=== PATIENT | male | born 1950 | race Caucasian/White ===

== ENCOUNTER → 2016-12-19 | Outpatient (CLI) | payer BC ==
[~2016-12-19] MED LIST: ADVIN50050 INH; ALLO300T2 PO; AMB10 PO; ASPI81TA28 PO; FINA5TAB PO; LOSA25TA18 PO; LZL/125 PO; METO-551 PO; PANT40TA PO; RPF/8 PO; SIMV40TA2 PO; SNG10 PO; VARD0.05 PO
[2016-12-19 14:52] LABS: BASO % 0.5 %; BASO ABS # 0.03 K/uL (0-0.2); COMPLETE YES; EOS % 3.4 %; HEMATOCRIT 42.1 % (42-52); IG% 0.4 %; LYMPH % 34.2 %; LYMPH ABS # 1.91 K/uL (1.2-3.4); MEAN CELL VOLUME 97.9 fL (80-100); MEAN CORPUSCULAR HEMOGLOBIN 34.2 pg (25-34); MEAN CORPUSCULAR HGB CONC 34.9 g/dl (32-36); MONO % 9.1 %; NEUT % 52.4 %; PLATELET COUNT 210 K/uL (130-400); WHITE BLOOD COUNT 5.58 K/uL (4.8-10.8)
[2016-12-19 15:13] LABS: ESTIMATED AVERAGE GLUCOSE 140 mg/dl; HA1C FLAG Normal (Normal)
[2016-12-19 15:20] LABS: BLOOD UREA NITROGEN 20 mg/dl (7-18); BUN/CREATININE RATIO 21.7 (10-20); CARBON DIOXIDE 28 mmol/L (21-32); CHLORIDE 102 mmol/L (98-107); CREATININE 0.94 mg/dl (0.60-1.40); GLUCOSE 212 mg/dl (70-99); POTASSIUM 3.9 mmol/L (3.5-5.1); SODIUM 139 mmol/L (136-145)
[2016-12-19 15:32] LABS: CALCIUM 9.2 mg/dl (8.5-10.1)
== END | disposition home or self-care (01) ==
LOC: C.LABBC 10:38
PROVIDERS: ATTEND Physician Assistant
DX: I10 Essential (primary) hypertension (principal); E78.00 Pure hypercholesterolemia, unspecified

== ENCOUNTER → 2017-02-14 | Outpatient (CLI) | payer BC ==
--- NOTE | 2017-02-14 14:46 | DIAGNOSTIC IMAGING REPORT ---
CHEST 2 VIEWS ROUTINE CLINICAL HISTORY: R09.89 Chest [id number] cough COMPARISON STUDY: 08/13/2015 FINDINGS: Findings of a prior median sternotomy. Lungs are clear. Diaphragms smooth. Left shoulder arthroplasty. IMPRESSION: No acute process. Chronic and postoperative change. Electronically signed by: Schuyler Ceron M.D. 02/14/2017 2:45 PM Dictated Date/Time: 02/14/2017 2:43 PM
== END | disposition home or self-care (01) ==
LOC: C.RAD1850 14:32
PROVIDERS: ATTEND Physician Assistant
DX: R09.89 Other specified symptoms and signs involving the circulatory and respiratory systems (principal)

== ENCOUNTER → 2017-03-09 | Outpatient (CLI) | payer BC ==
[2017-03-09 12:16] LABS: BASO % 0.5 %; BASO ABS # 0.03 K/uL (0-0.2); COMPLETE YES; HEMATOCRIT 41.7 % (42-52); IG% 0.2 %; LYMPH ABS # 1.81 K/uL (1.2-3.4); MEAN CELL VOLUME 95.9 fL (80-100); MEAN CORPUSCULAR HEMOGLOBIN 33.8 pg (25-34); MEAN CORPUSCULAR HGB CONC 35.3 g/dl (32-36); MEAN PLATELET VOLUME 10.9 fL (7.4-10.4); NEUT % 52.3 %; PLATELET COUNT 229 K/uL (130-400); RED BLOOD COUNT 4.35 M/uL (4.7-6.1); WHITE BLOOD COUNT 5.65 K/uL (4.8-10.8)
[2017-03-09 12:31] LABS: BLOOD UREA NITROGEN 21 mg/dl (7-18); CREATININE 0.86 mg/dl (0.60-1.40); GLUCOSE 142 mg/dl (70-99)
[2017-03-09 12:32] LABS: ALT/SGPT 85 U/L (12-78); AST/SGOT 43 U/L (15-37); CHLORIDE 104 mmol/L (98-107); CHOLESTEROL 103 mg/dl (0-200); SODIUM 140 mmol/L (136-145)
[2017-03-09 12:41] LABS: CARBON DIOXIDE 28 mmol/L (21-32); HDL CHOLESTEROL 34 mg/dl; LDL CHOLESTEROL CALCULATED 46 mg/dl; TRIGLYCERIDES 113 mg/dl (0-150); VERY LOW DENSITY LIPOPROT CALC 23 mg/dl
[2017-03-09 12:47] LABS: ESTIMATED AVERAGE GLUCOSE 146 mg/dl; HA1C FLAG Normal (Normal)
== END | disposition home or self-care (01) ==
LOC: C.LAB1850 10:01
PROVIDERS: ATTEND Internal Medicine Cardiovascular Disease
DX: I25.10 Atherosclerotic heart disease of native coronary artery without angina pectoris (principal); I10 Essential (primary) hypertension; E11.9 Type 2 diabetes mellitus without complications

== ENCOUNTER → 2017-09-16 | Outpatient (CLI) | payer BC ==
[2017-09-16 13:24] LABS: HEMOGLOBIN A1C 6.7 % (4.5-5.6)
== END | disposition home or self-care (01) ==
LOC: C.LAB1850 11:54
PROVIDERS: ATTEND Internal Medicine Cardiovascular Disease
DX: E11.9 Type 2 diabetes mellitus without complications (principal); E78.00 Pure hypercholesterolemia, unspecified

== ENCOUNTER → 2017-12-13 | Outpatient (CLI) | payer BC | END | disposition home or self-care (01) | LOC: C.LABSPEC 11:19 | PROVIDERS: ATTEND Physician Assistant | DX: R19.7 Diarrhea, unspecified (principal) ==

== ENCOUNTER → 2017-12-21 | Outpatient (CLI) | payer BC ==
--- NOTE | 2017-12-21 14:00 | DIAGNOSTIC IMAGING REPORT ---
MRI LUMBAR SPINE W/O CONTRAST CLINICAL HISTORY: Spinal stenosis with neurogenic claudication TECHNIQUE: Sagittal and axial T1, T2 and STIR images were obtained. COMPARISON STUDY: 08/11/2015 OBSERVATIONS: The vertebral bodies and posterior elements appear intact. There is no abnormal bony signal present to suggest a marrow replacement process. L1-2: There is a circumferential disc bulge present with mild to moderate spinal stenosis. There is no significant foraminal narrowing L2-3: There is a circumferential disc bulge with mild to moderate spinal stenosis. There is mild right-sided foraminal narrowing L3-4: There is a circumferential disc bulge. There is no significant spinal stenosis. There is facet joint arthropathy. There is moderate right-sided foraminal narrowing L4-5: There is a circumferential disc bulge present. There is no significant spinal stenosis. There is mild right-sided foraminal narrowing L5-S1: There is a minor grade 1 spondylolisthesis of L5 on S1. There is a mild circumferential disc bulge. There is no spinal stenosis. There is severe facet joint arthropathy. There is moderate left-sided foraminal narrowing and mild right-sided foraminal narrowing. The conus medullaris and cauda equina appear normal. IMPRESSION: 1. Moderately advanced multilevel degenerative change 2. Mild to moderate spinal stenosis at the L1-2, and L2-3 levels 3. Mild right-sided foraminal narrowing at the L2-3 level, L4-5 levels, and L5-S1 levels, and moderate right-sided foraminal narrowing at the L3-4 level. Moderate left-sided foraminal narrowing at the L5-S1 level. 4. The findings remain similar to the prior August 2015 study Electronically signed by: Humberto Arroyo M.D. 12/21/2017 1:59 PM Dictated Date/Time: 12/21/2017 1:53 PM
== END | disposition home or self-care (01) ==
LOC: C.MRIBC 12:52
PROVIDERS: ATTEND Neurological Surgery
DX: M48.062 Spinal stenosis, lumbar region with neurogenic claudication (principal)

== ENCOUNTER → 2017-12-26 | Outpatient (CLI) | payer BC ==
--- NOTE | 2017-12-26 14:17 | DIAGNOSTIC IMAGING REPORT ---
L WRIST MIN 3 VIEWS ROUTINE CLINICAL HISTORY: LEFT WRIST PAIN pain COMPARISON: None. DISCUSSION: The bones and joint spaces appear intact. There is no evidence of fracture, dislocation or bony disease. There is no evidence for soft tissue swelling. IMPRESSION: Negative study. The above report was generated using voice recognition software. It may contain grammatical, syntax or spelling errors. Electronically signed by: Schuyler Ceron M.D. 12/26/2017 2:16 PM Dictated Date/Time: 12/26/2017 2:14 PM
--- NOTE | 2017-12-26 14:18 | DIAGNOSTIC IMAGING REPORT ---
LEFT KNEE RADIOGRAPHS WITH COMPARISON STANDING AP RADIOGRAPH OF THE RIGHT KNEE CLINICAL HISTORY: Left knee pain. COMPARISON: None FINDINGS: Comparison standing AP radiograph of the right knee demonstrates mild medial compartment joint space narrowing. There is extensive vascular calcification. Alignment of the left knee is anatomic. No fracture or suspicious lesion. There is mild medial compartment joint space narrowing of the left knee. There is mild tricompartmental osteophytosis of the left knee. There is no fracture or joint effusion. IMPRESSION: 1. Mild to moderate tricompartmental osteoarthritis of the left knee. 2. No acute fracture or joint effusion. 3. Extensive vascular calcification. Electronically signed by: Donny Mraley M.D. 12/26/2017 2:17 PM Dictated Date/Time: 12/26/2017 2:16 PM
== END ==
LOC: C.RDSM 15:47
PROVIDERS: ATTEND Physician Assistant
DX: R52 Pain, unspecified (principal)

== ENCOUNTER → 2017-12-29 | Outpatient (CLI) | payer BC ==
--- NOTE | 2017-12-29 10:43 | DIAGNOSTIC IMAGING REPORT ---
CT OF THE ABDOMEN AND PELVIS WITH CONTRAST CLINICAL HISTORY: Abdominal pain and diarrhea. COMPARISON STUDY: CT of the abdomen January 21, 2016. TECHNIQUE: Following IV administration of 93 mL of Optiray-320, axial images of the abdomen and pelvis were obtained from the lung bases to the proximal femurs. Images were reviewed in the axial, sagittal, and coronal planes. IV contrast was administered without complication. A dose lowering technique was utilized adhering to the principles of ALARA. Oral contrast was administered. CT DOSE: 867.37 mGy.cm FINDINGS: Imaged portions of the lower chest demonstrate extensive coronary artery calcification, median sternotomy wires and mild dilatation of visualized portions of the ascending aorta which measures up to 4.2 cm. No pneumatosis, free air or portal venous gas is present. The liver, spleen, adrenal glands and kidneys are unremarkable. There is no biliary or pancreatic ductal dilatation. There is possible fatty infiltration of the liver. Extensive sigmoid diverticulosis is noted without definite evidence for acute diverticulitis. Mild wall thickening of the distal descending and sigmoid colon is noted without pericolonic infiltration. The appendix is not visualized and likely surgically absent. Note is made of a 4.5 x 1.4 cm tubular fat containing focus anterior to the distal ascending colon. There is no free air or abscess. There is no lymphadenopathy. No suspicious osseous lesions are present. There is moderate plaque of the abdominal aorta. IMPRESSION: 1. Extensive sigmoid diverticulosis with mild wall thickening of the distal descending colon and sigmoid colon. This is likely due to underdistention or circular muscular hypertrophy. However, a mild nonspecific colitis could appear similar. 2. 4.5 x 1.4 cm tubular fat-containing focus anterior to the distal ascending colon which suggests epiploic appendagitis or a small omental infarct which is likely subacute. This represents a self-limiting process. 3. Extensive coronary artery calcification. 4. Mild dilatation of the visualized portions of the ascending aorta, measuring up to 4.2 cm. Electronically signed by: Donny Marley M.D. 12/29/2017 10:42 AM Dictated Date/Time: 12/29/2017 10:23 AM
== END | disposition home or self-care (01) ==
LOC: C.CTS 10:05
PROVIDERS: ATTEND Physician Assistant
DX: R19.7 Diarrhea, unspecified (principal); R10.9 Unspecified abdominal pain

== ENCOUNTER → 2018-01-10 | Outpatient (CLI) | payer BC | END | disposition home or self-care (01) | LOC: C.LABSPEC 14:35 | PROVIDERS: ATTEND Physician Assistant | DX: R19.7 Diarrhea, unspecified (principal) ==

== ENCOUNTER → 2018-01-12 | Outpatient (CLI) | payer BC ==
--- NOTE | 2018-01-12 12:22 | DIAGNOSTIC IMAGING REPORT ---
GI W/AIR SMALL BOWEL ROUTINE CLINICAL HISTORY: R19.7nausea. Pain. COMPARISON STUDY: CT 12/29/2017 FLUOROSCOPY TIME: 1.2 minutes. FINDINGS: Patient initiates swallowing function well. The esophagus is normal in course and caliber. Gastroesophageal junction is normal. Size and configuration the stomach are normal. Duodenal bulb fills well and is negative for ulceration. Duodenal sweep is unremarkable. Mucosal pattern and transit time throughout small bowel are unremarkable. Cecum is somewhat mobile and currently is on the right upper quadrant. Spot films the terminal ileum are unremarkable. IMPRESSION: Normal study The above report was generated using voice recognition software. It may contain grammatical, syntax or spelling errors. Electronically signed by: Schuyler Ceron M.D. 01/12/2018 12:18 PM Dictated Date/Time: 01/12/2018 12:17 PM
== END | disposition home or self-care (01) ==
LOC: C.RAD 08:43
PROVIDERS: ATTEND Physician Assistant
DX: R19.7 Diarrhea, unspecified (principal)

== ENCOUNTER 2021-05-17 05:18 | Observation (INO) ==
--- NOTE | 2021-04-09 13:57 | PAT Medication Instructions ---
Medication Instructions Date of Service April 09, 2021 Home Medications Medication Instructions Recorded allopurinol 300 mg tablet 300 mg PO QAM #90 tab 09/12/19 sucralfate 100 mg/mL oral See Rx Instructions PO QID PRN 09/12/19 suspension (Carafate) #420 ml solifenacin 10 mg tablet (Vesicare) 10 mg PO DAILY #90 tab 10/23/20 montelukast 10 mg tablet 10 mg PO PM #90 tab 11/26/20 alprazolam 0.25 mg tablet 0.25 mg PO HS #90 tab 01/07/21 losartan 100 1 tab PO QAM #90 tab 01/13/21 mg-hydrochlorothiazide 25 mg tablet oxycodone 5 mg tablet 5 mg PO BID PRN #20 tab 03/29/21 azelastine 137 mcg (0.1 %) nasal spray aerosol 2 spray INTRANASAL DAILY PRN melatonin 10 mg tablet 10 mg PO HS PRN multivitamin 1 tab PO QAM omega 1-pgr-rpt-fish oil 1,000 mg (120 mg-180 mg) capsule (Fish Oil) 1 cap PO QAM allopurinol 300 mg tablet 300 mg PO QAM sucralfate 100 mg/mL oral suspension (Carafate) See Rx Instructions PO QID PRN solifenacin 10 mg tablet (Vesicare) 10 mg PO DAILY montelukast 10 mg tablet 10 mg PO PM alprazolam 0.25 mg tablet 0.25 mg PO HS losartan 100 mg-hydrochlorothiazide 25 mg tablet 1 tab PO QAM oxycodone 5 mg tablet 5 mg PO BID PRN diltiazem HCl 240 mg capsule,extended release 24 hr 240 mg PO QAM mirabegron 25 mg tablet,extended release 24 hr (Myrbetriq) 25 mg PO QPM pantoprazole 40 mg tablet,delayed release 40 mg PO BID simvastatin 40 mg tablet 40 mg PO HS STOP taking 2 weeks before surgery (or as soon as possible if surgery is within 2 weeks) omega 9-ucj-zgc-fish oil 1,000 mg (120 mg-180 mg) capsule (Fish Oil) 1 cap PO QAM DO NOT take the morning of surgery multivitamin 1 tab PO QAM sucralfate 100 mg/mL oral suspension (Carafate) See Rx Instructions PO QID PRN solifenacin 10 mg tablet (Vesicare) 10 mg PO DAILY losartan 100 mg-hydrochlorothiazide 25 mg tablet 1 tab PO QAM Take morning of surgery With a small sip of water, OTHERWISE NOTHING TO EAT OR DRINK AFTER MIDNIGHT: azelastine 137 mcg (0.1 %) nasal spray aerosol 2 spray INTRANASAL DAILY PRN (if needed) allopurinol 300 mg tablet 300 mg PO QAM oxycodone 5 mg tablet 5 mg PO BID PRN (okay to take up to 4 hours prior to surgery if needed) diltiazem HCl 240 mg capsule,extended release 24 hr 240 mg PO QAM pantoprazole 40 mg tablet,delayed release 40 mg PO BID Take evening before surgery azelastine 137 mcg (0.1 %) nasal spray aerosol 2 spray INTRANASAL DAILY PRN (if needed) melatonin 10 mg tablet 10 mg PO HS PRN (if needed) sucralfate 100 mg/mL oral suspension (Carafate) See Rx Instructions PO QID PRN (if needed) montelukast 10 mg tablet 10 mg PO PM alprazolam 0.25 mg tablet 0.25 mg PO HS oxycodone 5 mg tablet 5 mg PO BID PRN (if needed) mirabegron 25 mg tablet,extended release 24 hr (Myrbetriq) 25 mg PO QPM pantoprazole 40 mg tablet,delayed release 40 mg PO BID simvastatin 40 mg tablet 40 mg PO HS Other Notes If you have any questions please call us at [phone] or [phone] or [phone] or [phone]
--- NOTE | 2021-04-12 10:57 | Anesthesiology Consultation ---
Date of Service April 12, 2021 Assessment & Plan (1) Encounter for pre-operative examination: - COVID screening: Per assessment on 04/12: Travel screen negative, no known COVID-19 positive contacts or current COVID-19 related symptoms. Patient vaccinated. Surgeon arranging preop COVID testing. Awaiting results. - Cardiology office visit (02/02/21): "The patient is stable from cardiovascular standpoint. He demonstrates excellent control of his blood pressure and LDL cholesterol. He was commended on his exercise program. His ascending thoracic aortic dilatation remains stable. This will be reassessed in approximately 1 year. His coronary artery disease remains quiescent his current medical regimen." F/U 6 months recommended. - Check BSG AM DOS - Lumbar DDD: Reviewed SAB vs. GA. No lumbar hardware or abnormalities noted on PAT exam. - Post-op course: Per patient, plan per surgeon is to at least stay overnight post-operatively. Chart Review Chart Review: Acceptable Risk for Surgery and Patient seen in Pre Admission Testing Teaching & Discussion Pre-Anesthesia Teaching/Discussion Notes: Instructed NPO after midnight before surgery,except medications with 15 cc of water. Medication instructions provided according to the PAT guidelines. History Surgery Operation Date: 05/04/21 10:10 Proposed Procedures p Left Anterior Total Hip Replacement - Mathieu Robb DO Height/Weight Height: 6 ft 1.5 in Weight: 98.7 kg Allergies Allergy/AdvReac Type Severity Reaction Status Date / Time MARCELLO Inhibitors AdvReac Mild Cough Verified 04/09/21 15:04 Medications Home Medications Medication Instructions Recorded Confirmed Last Taken azelastine 137 mcg (0.1 %) nasal 2 spray INTRANASAL DAILY PRN 10/08/18 04/12/21 Unknown spray aerosol melatonin 10 mg tablet 10 mg PO HS PRN 10/08/18 04/12/21 10/28/18 22:00 multivitamin 1 tab PO QAM 10/08/18 04/12/21 10/28/18 08:00 omega 3-gyd-qfp-fish oil 1,000 mg 1 cap PO QAM 10/08/18 04/12/21 10/28/18 08:00 (120 mg-180 mg) capsule (Fish Oil) allopurinol 300 mg tablet 300 mg PO QAM #90 tab 09/12/19 04/12/21 Unknown sucralfate 100 mg/mL oral See Rx Instructions PO QID PRN 09/12/19 04/12/21 Unknown suspension (Carafate) #420 ml solifenacin 10 mg tablet (Vesicare) 10 mg PO DAILY #90 tab 10/23/20 04/12/21 Unknown montelukast 10 mg tablet 10 mg PO PM #90 tab 11/26/20 04/12/21 Unknown alprazolam 0.25 mg tablet 0.25 mg PO HS #90 tab 01/07/21 04/12/21 Unknown losartan 100 1 tab PO QAM #90 tab 01/13/21 04/12/21 Unknown mg-hydrochlorothiazide 25 mg tablet oxycodone 5 mg tablet 5 mg PO BID PRN #20 tab 03/29/21 04/12/21 Unknown diltiazem HCl 240 mg 240 mg PO QAM 04/09/21 04/12/21 Unknown capsule,extended release 24 hr mirabegron 25 mg tablet,extended 25 mg PO QPM 04/09/21 04/12/21 Unknown release 24 hr (Myrbetriq) pantoprazole 40 mg tablet,delayed 40 mg PO BID 04/09/21 04/12/21 Unknown release simvastatin 40 mg tablet 40 mg PO HS 04/09/21 04/12/21 Unknown Past Medical History Medical History Asthma Atrial fibrillation intermittent Barretts esophagus BPH (benign prostatic hyperplasia) CAD (coronary artery disease) s/p CABG x4 (2013) Chronic back pain Conductive hearing loss Degenerative disc disease GERD (gastroesophageal reflux disease) Gout History of gastric ulcer Hyperlipidemia Hypertension Insomnia Lumbar disc disorder with myelopathy Osteoarthritis Sleep apnea CPAP (non-compliant) Spinal stenosis Thoracic ascending aortic aneurysm Mildly dilated ascending aorta (4.1cm) per 12/2020 echo, "stable" per cardiology Type 2 diabetes mellitus Borderline, diet controlled Hgba1c 5.8% on 12/21/20 Exercise / Class Metabolic Activity II 4-5 Yardwork/Stairs/Walk up hill Past Family History Family History Father Family history of diabetes mellitus Myocardial infarction Stroke Brother Family history of esophageal cancer Stroke Son Coronary heart disease Other Diabetes Heart disease Hypertension No family history of adverse response to anesthesia Past Surgical History Surgical History History of appendectomy History of cardiac cath 2013 ([facility]) > no stents History of carpal tunnel surgery of right wrist History of colonoscopy History of esophagogastroduodenoscopy (EGD) EGD (10/29/18): MAC at [facility] History of lumbar discectomy x2 L3-L4 History of prior ablation treatment Radiofrequency ablation of esophagus (done at [facility]) for precancerous Allen's Esophagus History of tonsillectomy History of total replacement of left shoulder joint History of wisdom tooth extraction S/P CABG x 4 2013 ([facility]) Status post medial meniscus repair Left knee Status post right foot surgery Past Anesthesia History No Hx of Anesthesia Complications and No Family Hx of Anesthesia Complications History of PONV No Hx of PONV and No Hx of Motion Sickness Social History Smoking Status: Never smoker Do You Dip or Chew Tobacco: No Hx Alcohol Use: Yes Alcohol type: wine alcohol intake frequency: 3 or more drinks per day (At most 3 glasses/wine per day ) Hx Substance Use: No substance use type: does not use Review of Systems Patient denies chest pain, shortness of breath, dyspnea on exertion, fever, chills, cough, wheezing, palpitations. Physical Exam Vital Signs VITALS BP 124/81 P 67 TEMP WNL SP02 96%RA RESP 16 PHYSICAL Decreased cervical extension range of motion (2/2 cervicalgia). Full TMJ range of motion. TMD 3 finger breaths Mallampati Score 3 Dentition: intact, + crown Lungs: clear throughout to auscultation Cardiac: regular rate and rhythm, no murmurs noted Spine: normal Carotid arteries: negative bruit Extremities: no edema Lab Results Anesthesia Preop Results Results Anesthesia Widget: WBC 5.66 K/uL (4.8-10.8) 04/12/21 Hgb 13.8 g/dL (14.0-18.0) L 04/12/21 Hct 38.5 % (42-52) L 04/12/21 Plt 204 K/uL (130-400) 04/12/21 Na 131 mmol/L (136-145) L 04/12/21 K 3.8 mmol/L (3.5-5.1) 04/12/21 Cl 102 mmol/L (98-107) 04/12/21 CO2 27 mmol/L (21-32) 04/12/21 BUN 20 mg/dl (7-18) H 04/12/21 Creat 0.72 mg/dl (0.6-1.4) 04/12/21 Glucose Level 136 mg/dl (70-99) H 04/12/21 PT 10.6 Seconds (9.0-12.0) 04/12/21 PTT 24.5 Seconds (21.0-31.0) 04/12/21 INR 1.0 (0.9-1.1) 04/12/21 Blood Type O Positive 04/12/21 Antibody Screen NEGATIVE 04/12/21 Lab Comments: Known hx of mild, chronic hyponatremia. Testing Laboratory Results 12/21/20 HGBA1C 5.8% Electrocardiogram Date: 04/12/21 SR with first degree AVB at 64bpm. LBBB (chronic, known hx LBBB) Chest X-Ray Date: 04/12/21 FINDINGS: PA and lateral chest radiographs are compared to study dated 06/12/2018 and correlated with chest CT dated 09/28/2018. The patient is status post midline sternotomy. The heart is enlarged noting atherosclerotic calcification of the thoracic aorta. The pulmonary vasculature is noncongested. The lungs and pleural spaces are clear. There is no pneumothorax. The skeletal structures are osteopenic. The bony thorax appears intact. A left shoulder arthroplasty is in place. IMPRESSION: Cardiomegaly with no active disease in the chest. Echocardiogram Date: 12/28/20 EF 45 to 50%. No regional wall motion abnormality. Mild concentric LVH. Mild MR. Mildly dilated ascending aorta (4.1 cm in diameter). Grade 1 diastolic dysfunction. Mild LAD. Mild MR. Compared to study of 01/07/2020, no significant change.
--- NOTE | 2021-05-14 06:07 | History & Physical Report ---
Date of Service May 14, 2021 Assessment & Plan (1) Osteoarthritis of left hip: We will proceed with a left anterior total of arthroplasty. Postoperatively he will be started on aspirin for DVT prophylaxis and kept overnight in the hospital for postoperative medical management. He plans to use energy physical therapy upon discharge. History of Present Illness Chief Complaint: Osteoarthritis of the left hip. Primary Care Provider: Donal Willis MD Jose Rafael is a pleasant 70-year-old male whose been dealing with chronic worsening left hip and groin pain. X-rays and clinical examination have been diagnostic for advanced osteoarthritis of the left hip. After failing extensive conservative treatment, he has elected to proceed with a left total hip arthroplasty.. Allergies Allergy/AdvReac Type Severity Reaction Status Date / Time MARCELLO Inhibitors AdvReac Mild Cough Verified 04/28/21 13:24 Home Medications Medication Instructions Recorded Confirmed Type azelastine 137 mcg (0.1 %) nasal 2 spray INTRANASAL DAILY PRN 10/08/18 04/28/21 History spray aerosol melatonin 10 mg tablet 10 mg PO HS PRN 10/08/18 04/28/21 History multivitamin 1 tab PO QAM 10/08/18 04/28/21 History omega 4-ikg-wuk-fish oil 1,000 mg 1 cap PO QAM 10/08/18 04/28/21 History (120 mg-180 mg) capsule (Fish Oil) allopurinol 300 mg tablet 300 mg PO QAM #90 tab 09/12/19 04/28/21 Rx sucralfate 100 mg/mL oral See Rx Instructions PO QID PRN 09/12/19 04/28/21 Rx suspension (Carafate) #420 ml montelukast 10 mg tablet 10 mg PO PM #90 tab 11/26/20 04/28/21 Rx alprazolam 0.25 mg tablet 0.25 mg PO HS #90 tab 01/07/21 04/28/21 Rx losartan 100 1 tab PO QAM #90 tab 01/13/21 04/28/21 Rx mg-hydrochlorothiazide 25 mg tablet oxycodone 5 mg tablet 5 mg PO BID PRN #20 tab 03/29/21 04/28/21 Rx diltiazem HCl 240 mg 240 mg PO QAM 04/09/21 04/28/21 History capsule,extended release 24 hr mirabegron 25 mg tablet,extended 25 mg PO QPM 04/09/21 04/28/21 History release 24 hr (Myrbetriq) pantoprazole 40 mg tablet,delayed 40 mg PO BID 04/09/21 04/28/21 History release simvastatin 40 mg tablet 40 mg PO HS 04/09/21 04/28/21 History solifenacin 10 mg tablet (Vesicare) 10 mg PO DAILY 30 Days #30 tab 04/15/21 04/28/21 Rx hydrocortisone-acetic acid 1 %-2 % 5 drp OTIC (EAR) BID PRN #10 ml 04/28/21 04/28/21 Rx ear drops Past Med/Surg History Medical History Asthma Atrial fibrillation intermittent Barretts esophagus BPH (benign prostatic hyperplasia) CAD (coronary artery disease) s/p CABG x4 (2013) Chronic back pain Conductive hearing loss Degenerative disc disease GERD (gastroesophageal reflux disease) Gout History of gastric ulcer Hyperlipidemia Hypertension Insomnia Lumbar disc disorder with myelopathy Osteoarthritis Sleep apnea CPAP (non-compliant) Spinal stenosis Thoracic ascending aortic aneurysm Mildly dilated ascending aorta (4.1cm) per 12/2020 echo, "stable" per cardiology Type 2 diabetes mellitus Borderline, diet controlled Hgba1c 5.8% on 12/21/20 Surgical History History of appendectomy History of cardiac cath 2013 ([facility]) > no stents History of carpal tunnel surgery of right wrist History of colonoscopy History of esophagogastroduodenoscopy (EGD) EGD (10/29/18): MAC at [facility] History of lumbar discectomy x2 L3-L4 History of prior ablation treatment Radiofrequency ablation of esophagus (done at [facility]) for precancerous Allen's Esophagus History of tonsillectomy History of total replacement of left shoulder joint History of wisdom tooth extraction S/P CABG x 4 2013 ([facility]) Status post medial meniscus repair Left knee Status post right foot surgery Family History Father Family history of diabetes mellitus Myocardial infarction Stroke Brother Family history of esophageal cancer Stroke Son Coronary heart disease Other Diabetes Heart disease Hypertension No family history of adverse response to anesthesia Social History Smoking Status: Never smoker Second Hand Exposure: No; Hx Alcohol Use: Yes Alcohol type: wine Hx Substance Use: No Preferred Language: Beninese Communication Ability: Effective Director Market Research Required: No Beliefs That Will Affect Care: None Current Living Situation: Spouse Feels Safe at Home: Yes Assistive Devices: CPAP and Glasses Review of Systems All systems reviewed & are unremarkable except as noted in HPI & below. Physical Exam On physical examination of the left hip, he walks with a slightly antalgic gait. His limited range of motion of his hip with forced internal and external rotation. He has pain in his groin.. Constitutional WD/WN, vitals as above Eyes PERRL, conjunctivae normal, anicteric sclerae ENMT external ear and nose normal, oropharynx normal Neck trachea midline, no thyromegaly Respiratory normal respiratory effort Cardiovascular RRR, no murmur, no edema Gastrointestinal (Abdomen) normal bowel sounds, soft, nontender, no hepatosplenomegaly Psychiatric A+Ox3, euthymic affect Results & Data Results & Data Laboratory Results . Diagnostic Findings Pelvis do show advanced osteoarthritis with joint space narrowing, osteophyte formation, and [id number] articulation. PG Care Time/CCT Total # of Minutes Spent Total Time Spent with Patient: Total time spent is greater than 50% in coordination of care (as documented) at patient's floor/unit and/or counseling patient: Coding Level of Care Code None Diagnoses Osteoarthritis of left hip M16.12
[~2021-05-17 05:18] MED LIST changes: +ACETAMINOPHEN 500 MG TAB PO SCH; -ADVIN50050 INH; -ALLO300T2 PO; -AMB10 PO; -ASPI81TA28 PO; +FAMOTIDINE 20 MG TAB PO SCH; -FINA5TAB PO; +GABAPENTIN 600 MG DOSE PO SCH; -LOSA25TA18 PO; +LR 500ML BOLUS, THEN 15ML/HR IV SCH; +LR 60ML/HR IV SCH; -LZL/125 PO; -METO-551 PO; -PANT40TA PO; +ROPIVACAINE 0.5% HCL/PF 150 MG, BUPIVACAINE 0.75% MPF 20 ML, EPINEPHrine 30MG/30ML (OR ... INSTIL SCH; -RPF/8 PO; -SIMV40TA2 PO; -SNG10 PO; +TRANEXAMIC ACID 1,000 MG **IV Intra-op IV SCH; +TRANEXAMIC ACID 1,000 MG **IV Pre-op IV SCH; -VARD0.05 PO; +ceFAZolin 2000MG 2,000 MG/15 ML SYR IV SCH; +dexAMETHasone 4 MG TAB PO SCH
[2021-05-17] MEDS ORDERED: ceFAZolin 2000MG 2,000 MG/15 ML SYR IV SCH (06:00)
[2021-05-17] MEDS ORDERED: TRANEXAMIC ACID 1,000 MG **IV Intra-op IV SCH (06:00)
[2021-05-17] MEDS ORDERED: LR 500ML BOLUS, THEN 15ML/HR IV SCH (06:00)
[2021-05-17] MEDS ORDERED: GABAPENTIN 600 MG DOSE PO SCH (06:00)
[2021-05-17] MEDS ORDERED: ROPIVACAINE 0.5% HCL/PF 150 MG, BUPIVACAINE 0.75% MPF 20 ML, EPINEPHrine 30MG/30ML (OR ... INSTIL SCH (06:00)
[2021-05-17] MEDS ORDERED: LR 60ML/HR IV SCH (06:00)
[2021-05-17] MEDS ORDERED: dexAMETHasone 4 MG TAB PO SCH (06:00)
[2021-05-17] MEDS ORDERED: ACETAMINOPHEN 500 MG TAB PO SCH (06:00)
[2021-05-17] MEDS ORDERED: TRANEXAMIC ACID 1,000 MG **IV Pre-op IV SCH (06:00)
[2021-05-17] MEDS ORDERED: FAMOTIDINE 20 MG TAB PO SCH (06:00)
[2021-05-17] MEDS ORDERED: fentaNYL citrate 100 MCG/2 ML VIAL IV PRN (06:20)
[2021-05-17] MEDS ORDERED: ePHEDrine sulfate 50 MG/ML AMP IV PRN (06:20)
[2021-05-17] MEDS ORDERED: ONDANSETRON INJ 2 MG/ML 2 ML VIAL IV PRN ×2 (06:20→10:32)
[2021-05-17] MEDS ORDERED: ATROPINE SULFATE 0.1 MG/ML 10ML SYR IV PRN (06:20)
[2021-05-17] MEDS ORDERED: BUPIVACAINE 0.5 % 5 MG/1 ML PF 10ML VIAL ONE (06:35)
[2021-05-17] MEDS ORDERED: ORTHO JOINT ANESTHETIC ONE (06:37)
--- NOTE | 2021-05-17 06:37 | History & Physical Bridge Note ---
Date of Service May 17, 2021 History & Physical Bridge Note I have examined the patient, reviewed the History & Physical and in the interval since the performance of the History & Physical I have noted the following changes of clinical significance: no changes noted
[2021-05-17] MEDS ORDERED: fentaNYL citrate 100 MCG/2 ML VIAL ONE (06:41)
[2021-05-17] MEDS ORDERED: PROPOFOL IV EMULSION 10 MG/ML 20 ML VIAL IV ONE ×3 (06:41→07:53)
[2021-05-17] MEDS ORDERED: LIDOCAINE 2% 2 ML VIAL/AMP(20MG/ML) INFIL ONE (07:53)
[2021-05-17] MEDS ORDERED: ONDANSETRON INJ 2 MG/ML 2 ML VIAL ONE (07:53)
--- NOTE | 2021-05-17 08:17 | Operative Report ---
PG Post Operative Report Pre & Post Diagnosis Operation Date: 05/17/21 07:00 Pre-Op Diagnosis: Left Hip Osteoarthritis Post-Op Diagnosis: Left Hip Osteoarthritis I identified the patient and participated in the time-out.: Yes Procedure Operation Date: 05/17/21 07:00 Actual Procedures p Left Anterior Total Hip Replacement(Left) - Mathieu Robb DO Surgeon Mathieu Robb DO Mail Weigher Mathieu Boston PAC Estimated Blood Loss 250 Findings Consistent with Post-Op Diagnosis Specimens Left femoral head Complications none Disposition Disposition: Recovery Room Indications Jose Rafael is a pleasant 70-year-old male who is been dealing with chronic worsening left hip and groin pain. X-rays and clinical examination are diagnostic for advanced osteoarthritis of the left hip. After failing conservative treatment, he elected proceed with a left anterior total hip arthroplasty. Description of Procedure Implants used I used a ZimmerBiomet total hip arthroplasty system with a size 4 standard Avenir Complete stem, a 56 mm G7 cup with a 25mm screw, an E1 polyethylene liner, a 40 mm ceramic head with a 0 neck. Jose Rafael arrived at the hospital for the above procedure. He was seen in the preoperative holding area and the operative extremity was identified and signed. He was given a spinal anesthetic, a preoperative antibiotic, and TXA. He was then taken back to the operating room and laid on the table in the supine position. He was given basic sedation. The operative leg was secured to a Puristst leg positioner. The hip was then prepped and draped in sterile fashion. A timeout was done and the patient and the operative extremity was properly identified. An anterior approach was used. Dissection was taken down through the fascia and the tensor muscle belly was retracted laterally and the rectus was retracted medially. The circumflex vessels were identified and ligated. The capsule was then incised and tagged for later repair. The femoral neck was then cut and the femoral head was removed. The acetabulum was exposed. Time was spent doing a complete circumferential labral release. Sequential reaming of the acetabulum up to a size 55 reamer was done. Final reamings were done under fluoroscopy to ensure appropriate version. A Biomet 56 mm G7 cup was then impacted into place. A single 25 mm screw was placed. The E1 polyethylene liner was then snapped into place. Surrounding soft tissues were then injected with 100 cc of an orthopedic pain control cocktail. The proximal femur was then exposed. Sequential broaching up to a size 4 broach was done. Off that broach a size 40 head with a 0 neck was trialed. The hip was reduced and fluoroscopic images showed anatomic alignment of the implants in acceptable length. The broach was removed. The final size 4 standard offset Avenir Complete stem was then impacted into place. A ceramic 40 mm head with a 0 neck was then impacted onto the stem and the hip was reduced. Final fluoroscopic images showed anatomic alignment of the hip. The capsule was then closed with #1 Vicryl suture. A dilute betadyne lavage was then done for 3 minutes. The joint was then irrigated with normal saline solution. The fascia was closed with #1 PDS suture. Skin was closed with 2-0 Vicryl, francisco, and a Silverlon dressing. He was then transferred to a hospital bed and taken to the post anesthesia care unit in stable condition. He tolerated the procedure well. Mathieu Boston PA-C, was present for the entire procedure. He was critical for patient positioning, prepping, draping, retraction exposure, wound closure and application of sterile dressing. I attest to the content of the Intraoperative Record and any orders documented therein. Any exceptions are noted below.
--- NOTE | 2021-05-17 08:28 | Fluoroscopy Report ---
FL hip LT 1V CLINICAL HISTORY: LEFT ANTERIOR HIP COMPARISON STUDY: None. FLUOROSCOPY TIME: 26 seconds. FINDINGS: A single fluoroscopic spot image of the left hip demonstrates a left total arthroplasty. Th e hardware is intact. No fracture or dislocation. IMPRESSION: Fluoroscopy provided for left total hip arthroplasty. ACT 112: Negative or not required by law. Electronically signed by: Norbert Martins M.D. 05/17/2021 8:27 AM
[2021-05-17] MEDS ORDERED: PHENYLEPHRINE HCL 10 MG/ML VIAL ONE (08:32)
--- NOTE | 2021-05-17 09:34 | XRay Report ---
XR hip 1V LT w pelvis HISTORY: 70 years-old Male IN PACU - A/P PELVIS and LATERAL HIP left hip total joint arthroplasty COMPARISON: Pelvis and hip radiographs 02/17/2021 TECHNIQUE: AP view of the pelvis with crosstable lateral view of the left hip FINDINGS: Severe right hip osteoarthritis. Left hip total joint arthroplasty. Lateral skin francisco are noted al eliane with expected postoperative soft tissue swelling and deep tissue air. No acute fracture, malalign ment or unexpected opaque foreign body. Arterial calcifications. IMPRESSION: Left hip total joint arthroplasty with expected postoperative changes. ACT 112: Negative or not required by law. The above report was generated using voice recognition software. It may contain grammatical, syntax o r spelling errors. Electronically signed by: Rigo Llamas M.D. 05/17/2021 9:32 AM
--- NOTE | 2021-05-17 10:26 | Anesthesiology Progress Note ---
Date of Service May 17, 2021 Anesthesia Post Procedure Vital Signs Vital Signs: Temp Pulse Pulse Resp BP BP Pulse Ox 05/17/21 10:05 68 16 109/68 96 05/17/21 09:55 97.3 F L 72 16 110/75 98 05/17/21 09:45 70 15 111/68 96 05/17/21 09:35 76 12 113/73 95 05/17/21 09:25 77 12 123/80 95 05/17/21 09:15 74 15 112/75 97 05/17/21 09:05 82 19 121/78 93 05/17/21 08:55 78 11 L 117/76 93 05/17/21 08:45 82 17 108/82 100 05/17/21 08:38 98.1 F 88 16 93/62 L 100 05/17/21 05:56 98.2 F 99 H 18 161/112 H 94 Transfer of Care Handoff Completed per policy Notes Mental Status: alert / awake / arousable and participated in evaluation Patient Amnestic to Procedure: Yes Nausea / Vomiting: adequately controlled Pain: adequately controlled Airway Patency, RR, SpO2: stable & adequate BP & HR: stable & adequate Hydration State: stable & adequate Neuraxial Anesthesia: was administered and sensory block is resolving Anesthetic Complications: no major complications apparent and Pt Satisfied with anesthetic care
[2021-05-17] MEDS ORDERED: bisacodyL 10 MG SUPP PR PRN (10:32)
[2021-05-17] MEDS ORDERED: ACETIC AC/HYDROCORTISONE OTIC 10ML BTL OT PRN (10:32)
[2021-05-17] MEDS ORDERED: NALOXONE HCL 0.4 MG/1 ML VIAL/CARP IV PRN (10:32)
[2021-05-17] MEDS ORDERED: PHARMACY GLYCEMIC MGMT CONSULT PRN (10:32)
[2021-05-17] MEDS ORDERED: METOCLOPRAMIDE HCL INJ 5 MG/ML 2 ML VIAL IV PRN (10:32)
[2021-05-17] MEDS ORDERED: MAGNESIUM HYDROXIDE SUSP 30 ML UDC PO PRN (10:32)
[2021-05-17] MEDS ORDERED: oxyCODONE HCL IR 5 MG TAB (IMMEDIATE RELEASE) PO PRN (10:32)
[2021-05-17] MEDS ORDERED: HYDROmorphone INJ 0.5 MG/0.5 ML SYR IV PRN (10:32)
[2021-05-17] MEDS ORDERED: AZELASTINE HCL 0.1% NASAL 200 SPRAYS/27,400 MCG BTL PRN (10:53)
[2021-05-17] MEDS ORDERED: GLUCAGON FOR INJ 1 MG VIAL IM PRN (11:00)
[2021-05-17] MEDS ORDERED: DEXTROSE 50% 50 ML SYRINGE IV PRN (11:00)
[2021-05-17] MEDS ORDERED: GLUCOSE 40% GEL 15 GM TUBE PO PRN (11:00)
[2021-05-17] MEDS ORDERED: GLUCOSE 10 TABS/TUBE PO PRN (11:00)
[2021-05-17] MEDS ORDERED: CARBOHYDRATES FOR HYPOGLYCEMIA PO PRN (11:00)
--- NOTE | 2021-05-17 11:05 | Pharmacy Report ---
Pharmacy Glycemic Short Note 2 - Date of Service May 17, 2021 - Glycemic Short BSG Results (Last 24 hours): 05/17/21 05/17/21 05:47 08:57 POC Glucose 123 H 118 H OUTPATIENT ANTIDIABETIC REGIMEN: * diet-controlled * HbA1C = 5.8% (12/21/20) ASSESSMENT: * Mr Batres is a 70 y/o M with a PMH of T2DM diet controlled who presents for a L hip replacement. * Patient's fasting BSG was 118 mg/dL. * Will purse aggressive weight-based stress of 2-3 Novolog to maintain BSGs < 150 mg/dL. * If lunch BSG > 140 mg/dL will give NPH 20 units x 1. PLAN FOR INPATIENT GLYCEMIC CONTROL: * Basal insulin * NPH 20 units x 1 if lunch BSG > 140 mg/dL * Bolus insulin * NovoLog per scale ACHS or Q6hrs while NPO * Goal Range: Low 110 mg/dL - High 140 mg/dL * Correction Factor: 20 mg/dL/unit * Nutritional / Prandial insulin per carb ratio of 1 unit per 7 grams CHO consumed PLAN FOR DISCHARGE: * HbA1C well below goal continue with diet-control.
[2021-05-17] MEDS: dilTIAZem HCL 240 MG CAPCR PO SCH (11:29)
[2021-05-17] MEDS: SODIUM CHLORIDE 0.9% 1000ML 1,000 ML IV SCH ×2 (11:29→20:58)
[2021-05-17] MEDS: LOSARTAN/HCTZ 50/12.5MG TAB PO SCH (11:29)
[2021-05-17] MEDS: allopurinoL 300 MG TAB PO SCH (11:30)
[2021-05-17] MEDS: DOCUSATE SODIUM 100 MG CAP PO SCH ×2 (11:30→20:56)
[2021-05-17] MEDS: KETOROLAC TROMETHAMINE 15 MG/ML VIAL IV SCH ×3 (11:30→21:27)
[2021-05-17] MEDS: ASPIRIN 81 MG ECTAB PO SCH ×2 (11:30→20:58)
[2021-05-17] MEDS: MULTIVITAMIN TAB PO SCH (11:31)
[2021-05-17] MEDS: NovoLIN-N (NPH) PER UNIT CHARGE SQ ONE ×2 (13:00→14:36)
[2021-05-17] MEDS: INSULIN ASPART 100 UNITS/ML 3 ML PEN SC SCH ×4 (13:00→23:43)
[2021-05-17] MEDS: ACETAMINOPHEN 500 MG TAB PO SCH ×2 (14:09→20:58)
[2021-05-17] MEDS: ceFAZolin 2000MG 2,000 MG/15 ML SYR IV SCH ×2 (15:04→22:01)
[2021-05-17] MEDS: ALPRAZolam 0.25 MG TABLET PO SCH ×2 (20:50→21:06)
[2021-05-17] MEDS ORDERED: MONTELUKAST SODIUM 10 MG TABLET PO SCH (21:00)
[2021-05-17] MEDS ORDERED: SIMVASTATIN 40 MG TAB PO SCH (21:00)
[2021-05-17] MEDS ORDERED: SENNA 8.6 MG TAB PO SCH (21:00)
[2021-05-17] MEDS ORDERED: MIRABEGRON ER 25 MG TAB PO SCH (21:00)
[2021-05-17] MEDS ORDERED: MELATONIN 3 MG TAB PO PRN (22:39)
[2021-05-18] MEDS: INSULIN ASPART 100 UNITS/ML 3 ML PEN SC SCH ×2 (05:02→08:32)
[2021-05-18] MEDS: ACETAMINOPHEN 500 MG TAB PO SCH (05:02)
[2021-05-18] MEDS: KETOROLAC TROMETHAMINE 15 MG/ML VIAL IV SCH ×2 (05:02→10:15)
--- NOTE | 2021-05-18 06:46 | Orthopedic Progress Note ---
Date of Service May 18, 2021 Assessment & Plan (1) Status post left hip replacement: Overall is doing very well. Is not having much pain in the left hip. He will be seen by physical therapy today for ambulation and range of motion exercises. He is on aspirin for DVT prophylaxis. He can be discharged home later today. He will follow-up with orthopedics in 2 weeks. Chuy Mantilla was seen and examined at bedside this morning. Overall is doing fairly well. Is not having much pain in the left hip. He has been up and ambulating to the bathroom. He has no complaints.. Review of Systems All systems reviewed & are unremarkable except as noted in HPI & below. Physical Exam On physical examination of the left hip, the dressing has a little bit of bloody drainage but not much. His leg lengths are equal. He has active dorsiflexion plantarflexion of his left ankle.. Results & Data Results & Data Laboratory Results . Diagnostic Findings Postoperative x-rays of the left hip show the prosthesis to be in anatomic alignment without any evidence of fracture, dislocation, or loosening. PG Care Time/CCT Total # of Minutes Spent Total Time Spent with Patient: Total time spent is greater than 50% in coordination of care (as documented) at patient's floor/unit and/or counseling patient: Coding Level of Care Code 43170 Post Operative Follow-Up Diagnoses Status post left hip replacement Z96.642
--- NOTE | 2021-05-18 06:48 | Discharge Summary ---
Date of Service May 18, 2021 Admission HPI (Per Admitting) Jose Rafael is a pleasant 70-year-old male whose been dealing with chronic worsening left hip and groin pain. X-rays and clinical examination have been diagnostic for advanced osteoarthritis of the left hip. After failing extensive conservative treatment, he has elected to proceed with a left total hip arthroplasty.. Admission Exam (Per Admitting) On physical examination of the left hip, he walks with a slightly antalgic gait. His limited range of motion of his hip with forced internal and external rotation. He has pain in his groin.. Principal Diagnosis Same as "Discharge Diagnosis" noted below under Discharge Instructions. Discharge Exam On physical examination of the left hip, the dressing has a little bit of bloody drainage but not much. His leg lengths are equal. He has active dorsiflexion plantarflexion of his left ankle.. Discharge Data Procedures Performed Operation Date: 05/17/21 07:00 Actual Procedures p Left Anterior Total Hip Replacement(Left) - Mathieu Robb DO Ordered Studies 05/17/21 07:00 FL hip LT 1V Routine Hospital Course (1) Status post left hip replacement: On May 17, 2021 Jose Rafael arrived at [facility] and underwent a left hip replacement without complication. He had a spinal anesthetic. Postoperatively he was started on aspirin for DVT prophylaxis and transferred to the general orthopedic floors. His hospital course was uneventful. On postop day #1 his vital signs were stable and his pain was well controlled. He was able to participate well with physical therapy doing ambulation and range of motion exercises. He was then discharged to home. He will follow-up with orthopedics in 2 weeks. PG Care Time/CCT Total # of Minutes Spent Total Time Spent with Patient: Total time spent is greater than 50% in coordination of care (as documented) at patient's floor/unit and/or counseling patient: Discharge Plan Discharge Items Patient Disposition: Home - Home Health Services Reason For Visit: Left Hip Osteoarthritis Discharge Diagnosis: Left hip replacement Activity: As commented below Non-emergency contact: Surgeon Call non-emergency contact if: your wound has increased redness and your wound has increased drainage Follow-up/Referrals: Donal Willis MD [Primary Care Provider] - Diet: Regular Addtl Attending Provider Instructions: Activity and Therapy Recommendations: * If you are using [facility] then therapy will be provided at your home until they feel you have accomplished all of your goals. * If you are using [facility] then Physical Therapy will be provided until they feel you are ready to start Outpatient Physical Therapy. * If you are not using home therapy then Outpatient Physical Therapy should start about 3-5 days from your day of surgery. Therapy will last about 6-10 weeks * You were shown a series of exercises in the hospital. Do these exercises three times each day including the exercises you were shown in physical therapy. * Get up and walk several times each day.~ For the first four weeks, try not to stand or walk for more than one hour at a time. If you do stand or walk for more than one hour, you will not hurt anything, but your leg will likely swell.~~ * As you feel comfortable, you may change from the walker or crutches to a cane and~then to independent walking. Medications: * Narcotic You will likely be sent home from the hospital with a prescription for the narcotic pain medication that worked best throughout your stay. * Aspirin Most patients will be required to take Aspirin 81mg twice a day for 6 weeks after surgery. This is obtained [id number] and a prescription is not necessary. * Other medications may be prescribed for specific circumstances. If you have any questions, please call the office at . * Resume previous home medications unless otherwise instructed TEDs/Elastic Stockings: The white elastic stockings help limit swelling and prevent blood clots from forming in your legs. The more you wear them, the more they work. Wear them for six weeks. Dressing Care: Leave the Silverlon dressing in place for 7 days. After 7 days you may remove the dressing. If the incision is not draining then you may leave the francisco open to air. If there is a little bit of drainage or if the francisco are getting stuck on your clothing then cover the incision with a dry dressing. The francisco will be removed at your 2 week follow-up appointment. Showering: You may shower with the Silverlon dressing in place. Do not let the shower spray hit the dressing directly. Pat the Silverlon dressing dry. If the dressing becomes wet underneath, then simply remove the dressing. Keep the incision dry until you are 7 days out from the day of surgery. After 7 days you may remove the Silverlon dressing and shower with the francisco exposed. Let soapy water run over the francisco and pat them dry. Do not scrub or soak the incision. Things To Watch For: * Drainage from the incision site that occurs more than one week after your surgery. * Increased redness at the incision site. * Fever above 102 degrees Fahrenheit. * Unusual chest pain or shortness of breath. * Call [facility] at with any of the above problems Follow-Up Visit: Follow-up with Dr. Robb's PA (Mathieu Boston) 2-3 weeks after your day of surgery. He will remove your francisco and answer any questions. If you have any additional questions or concerns, Dr Robb is usually in the office at the same time and will be available An appointment was probably scheduled when you signed-up for surgery in the office. If you have any questions call Office Instructions: More detailed instructions as well as Frequently Asked Questions were provided in a folder by our office when you signed-up for surgery. Please review these instructions when you get home. If you have any further questions or concerns, please feel free to call the office at [phone] Pending Studies at Discharge: No Stand-Alone Forms: My [facility], Smoking Cessation Medications and DC Order Prescriptions: New aspirin 81 mg Tablet,Delayed Release (Dr/Ec) 81 mg PO BID 42 Days Qty: 84 RF: 0 Continued sucralfate [Carafate] 100 mg/mL suspension See Rx Instructions PO QID PRN (Reason: Acid Reflux) Qty: 420 RF: 3 allopurinol 300 mg tablet 300 mg PO QAM Qty: 90 RF: 3 montelukast 10 mg tablet 10 mg PO PM Qty: 90 RF: 3 alprazolam 0.25 mg tablet 0.25 mg PO HS Qty: 90 RF: 2 losartan-hydrochlorothiazide 100-25 mg tablet 1 tab PO QAM Qty: 90 RF: 3 solifenacin [Vesicare] 10 mg tablet 10 mg PO DAILY 30 Days Qty: 30 RF: 0 hydrocortisone-acetic acid 1-2 % drops 5 drp otic (ear) BID PRN (Reason: Pain and drainage) Qty: 10 RF: 5 multivitamin Tablet 1 tab PO QAM RF: 0 azelastine 137 mcg (0.1 %) Aerosol,Dittmer 2 spray INTRANASAL DAILY PRN (Reason: Nasal Congestion) RF: 0 omega 5-kxh-sbc-fish oil [Fish Oil] 1,000 mg (120 mg-180 mg) Capsule 1 cap PO QAM RF: 0 melatonin 10 mg Tablet 10 mg PO HS PRN (Reason: Sleep) RF: 0 diltiazem HCl 240 mg capsule,extended release 24hr 240 mg PO QAM RF: 0 simvastatin 40 mg tablet 40 mg PO HS RF: 0 pantoprazole 40 mg tablet,delayed release (DR/EC) 40 mg PO BID RF: 0 Myrbetriq 25 mg tablet extended release 24 hr 25 mg PO QPM RF: 0 Changed oxycodone 5 mg tablet 5 mg PO Q6 PRN (Reason: pain) Qty: 40 RF: 0 Discharge Orders: Discharge Order (Routine); Ordered 05/18/21 Ordered By: Mathieu Robb Admission Data Admit Date/Time: 05/17/21 08:40 Attending Provider: Mathieu Robb Admit Provider: Mathieu Robb Primary Care Provider: Donal Willis
[2021-05-18] MEDS: allopurinoL 300 MG TAB PO SCH (08:34)
[2021-05-18] MEDS: dilTIAZem HCL 240 MG CAPCR PO SCH (08:35)
[2021-05-18] MEDS: MULTIVITAMIN TAB PO SCH (08:35)
[2021-05-18] MEDS: DOCUSATE SODIUM 100 MG CAP PO SCH (08:35)
[2021-05-18] MEDS: LOSARTAN/HCTZ 50/12.5MG TAB PO SCH (08:36)
[2021-05-18] MEDS: ASPIRIN 81 MG ECTAB PO SCH (08:36)
== END 2021-05-18 10:55 | disposition home health service (06) ==
LOC: ASU 05:18 → 3E 05:18

== ENCOUNTER 2021-06-03 12:36 | Observation (INO) ==
--- NOTE | 2021-06-02 12:59 | Anesthesiology Consultation ---
Date of Service June 02, 2021 Assessment & Plan (1) Encounter for pre-operative examination: - COVID screening: Per PAT accountant on 06/02: Travel screen negative, no known COVID-19 positive contacts or current COVID-19 related symptoms. Patient vaccinated. Preop COVID test done 06/02 ([place])- results pending. Pt requiring admission post-operatively. Plan for recheck with COVID Sal[place] AM DOS due to possibility that patient may have a roommate. OR aware. Salazar order placed. - Cardiology office visit (02/02/21): "The patient is stable from cardiovascular standpoint. He demonstrates excellent control of his blood pressure and LDL cholesterol. He was commended on his exercise program. His ascending thoracic aortic dilatation remains stable. This will be reassessed in approximately 1 year. His coronary artery disease remains quiescent his current medical regimen." F/U 6 months recommended. - Check BSG AM DOS - S/P Left anterior DEMETRIO (05/17/21): SAB at L3-L4(x1 attempt) at [facility] - Preop labs: Preop labs were updated 06/02 at [place]. Results still pending. Will need to review AM DOS. Chart Review Chart Review: Acceptable Risk for Surgery (pending preop labs) and Patient NOT seen in Pre Admission Testing History Surgery Operation Date: 06/03/21 14:20 Proposed Procedures p Irrigation and Debridement Left Hip, - Mathieu Robb DO s Possible Polyethylene Exchange - Mathieu Robb DO Allergies Allergy/AdvReac Type Severity Reaction Status Date / Time MARCELLO Inhibitors AdvReac Mild Cough Verified 06/02/21 13:40 Medications Home Medications Medication Instructions Recorded Confirmed Last Taken azelastine 137 mcg (0.1 %) nasal 2 spray INTRANASAL DAILY PRN 10/08/18 06/02/21 Unknown spray aerosol melatonin 10 mg tablet 10 mg PO HS PRN 10/08/18 06/02/21 05/16/21 23:00 multivitamin 1 tab PO QAM 10/08/18 06/02/21 05/12/21 omega 3-cty-ine-fish oil 1,000 mg 1 cap PO QAM 10/08/18 06/02/21 05/03/21 (120 mg-180 mg) capsule (Fish Oil) allopurinol 300 mg tablet 300 mg PO QAM #90 tab 0106/02/21 05/16/21 08:30 sucralfate 100 mg/mL oral See Rx Instructions PO QID PRN 09/12/19 06/02/21 05/16/21 16:00 suspension (Carafate) #420 ml montelukast 10 mg tablet 10 mg PO PM #90 tab 11/26/20 06/02/21 05/16/21 23:00 alprazolam 0.25 mg tablet 0.25 mg PO HS #90 tab 01/07/21 06/02/21 05/16/21 23:00 losartan 100 1 tab PO QAM #90 tab 01/13/21 06/02/21 05/17/21 04:50 mg-hydrochlorothiazide 25 mg tablet diltiazem HCl 240 mg 240 mg PO QAM 04/09/21 06/02/21 05/17/21 04:50 capsule,extended release 24 hr mirabegron 25 mg tablet,extended 25 mg PO QPM 04/09/21 06/02/21 05/16/21 23:00 release 24 hr (Myrbetriq) pantoprazole 40 mg tablet,delayed 40 mg PO BID 04/09/21 06/02/21 05/17/21 04:50 release simvastatin 40 mg tablet 40 mg PO HS 04/09/21 06/02/21 05/09/21 23:00 solifenacin 10 mg tablet (Vesicare) 10 mg PO DAILY 30 Days #30 tab 04/15/21 06/02/21 05/16/21 23:00 hydrocortisone-acetic acid 1 %-2 % 5 drp OTIC (EAR) BID PRN #10 ml 04/28/21 06/02/21 Unknown ear drops aspirin 81 mg tablet,delayed 81 mg PO BID 42 Days #84 tab 05/18/21 06/02/21 Unknown release oxycodone 5 mg tablet 5 mg PO Q6 PRN #40 tab 05/18/21 06/02/21 Unknown zolpidem 10 mg tablet 10 mg PO HS PRN #30 tab 05/19/21 06/02/21 Unknown cephalexin 500 mg capsule 500 mg PO TID 10 Days #30 cap 05/31/21 06/02/21 Unknown Past Medical History Medical History (Updated 06/02/21 @ 13:52 by Jesica Moreno RN) Asthma Atrial fibrillation intermittent Barretts esophagus BPH (benign prostatic hyperplasia) CAD (coronary artery disease) s/p CABG x4 (2013) Chronic back pain Conductive hearing loss Degenerative disc disease GERD (gastroesophageal reflux disease) History of gastric ulcer Hx of gout Hyperlipidemia Hypertension Insomnia Lumbar disc disorder with myelopathy Osteoarthritis Sleep apnea CPAP (non-compliant) Spinal stenosis Thoracic ascending aortic aneurysm Mildly dilated ascending aorta (4.1cm) per 12/2020 echo, "stable" per cardiology Type 2 diabetes mellitus Borderline, diet controlled Past Family History Family History Father Family history of diabetes mellitus Myocardial infarction Stroke Brother Family history of esophageal cancer Stroke Son Coronary heart disease Other Diabetes Heart disease Hypertension No family history of adverse response to anesthesia Past Surgical History Surgical History (Updated 06/02/21 @ 13:52 by Jesica Moreno RN) History of appendectomy History of cardiac cath 2013 ([facility]) > no stents History of carpal tunnel surgery of right wrist History of colonoscopy History of esophagogastroduodenoscopy (EGD) History of lumbar discectomy x2 L3-L4 History of prior ablation treatment Radiofrequency ablation of esophagus (done at [facility]) for precancerous Allen's Esophagus History of tonsillectomy History of total hip arthroplasty LEFT History of total replacement of left shoulder joint History of wisdom tooth extraction Nausea and vomiting after administration of anesthetic agent S/P CABG x 4 2013 ([facility]) Status post medial meniscus repair Left knee Status post right foot surgery Social History Smoking Status: Never smoker Hx Alcohol Use: Yes Alcohol type: wine alcohol intake frequency: 0-2 drinks per day Hx Substance Use: No substance use type: does not use Lab Results Anesthesia Preop Results Results Anesthesia Widget: WBC 5.66 K/uL (4.8-10.8) 04/12/21 Hgb 13.8 g/dL (14.0-18.0) L 04/12/21 Hct 38.5 % (42-52) L 04/12/21 Plt 204 K/uL (130-400) 04/12/21 Na 131 mmol/L (136-145) L 04/12/21 K 3.8 mmol/L (3.5-5.1) 04/12/21 Cl 102 mmol/L (98-107) 04/12/21 CO2 27 mmol/L (21-32) 04/12/21 BUN 20 mg/dl (7-18) H 04/12/21 Creat 0.72 mg/dl (0.6-1.4) 04/12/21 POC Glucose 162 mg/dl (70-99) H 05/18/21 PT 10.6 Seconds (9.0-12.0) 04/12/21 PTT 24.5 Seconds (21.0-31.0) 04/12/21 INR 1.0 (0.9-1.1) 04/12/21 Blood Type O Positive 05/17/21 Antibody Screen NEGATIVE 05/17/21 Lab Comments: Known hx of mild, chronic hyponatremia. Testing Laboratory Results 12/21/20 HGBA1C 5.8% Electrocardiogram Date: 04/12/21 SR with first degree AVB at 64bpm. LBBB (chronic, known hx LBBB) Chest X-Ray Date: 04/12/21 FINDINGS: PA and lateral chest radiographs are compared to study dated 06/12/2018 and correlated with chest CT dated 09/28/2018. The patient is status post midline sternotomy. The heart is enlarged noting atherosclerotic calcification of the thoracic aorta. The pulmonary vasculature is noncongested. The lungs and pleural spaces are clear. There is no pneumothorax. The skeletal structures are osteopenic. The bony thorax appears intact. A left shoulder arthroplasty is in place. IMPRESSION: Cardiomegaly with no active disease in the chest. Echocardiogram Date: 12/28/20 EF 45 to 50%. No regional wall motion abnormality. Mild concentric LVH. Mild MR. Mildly dilated ascending aorta (4.1 cm in diameter). Grade 1 diastolic dysfunction. Mild LAD. Mild MR. Compared to study of 01/07/2020, no significant change.
[~2021-06-03 12:36] MED LIST changes: +GABAPENTIN 300 MG CAP PO SCH; -GABAPENTIN 600 MG DOSE PO SCH; -LR 60ML/HR IV SCH; -ROPIVACAINE 0.5% HCL/PF 150 MG, BUPIVACAINE 0.75% MPF 20 ML, EPINEPHrine 30MG/30ML (OR ... INSTIL SCH
--- NOTE | 2021-06-03 13:13 | History & Physical Report ---
Date of Service June 03, 2021 Assessment & Plan (1) Postoperative wound infection of left hip: We will proceed with an I&D of the left hip. We may do a polyexchange. We will obtain cultures. Postoperatively he will be kept in the hospital for antibiotics until we can consider further treatment. History of Present Illness Chief Complaint: Superficial infection of the left hip . Primary Care Provider: Donal Willis MD Jose Rafael is a pleasant 70-year-old male who underwent a left anterior hip replacement on May 17. He was initially doing extremely well. He is back at work. Unfortunately started noticing some persistent drainage from his incision. He came to our office on a Monday. It looked mostly serous drainage and he was started on some Keflex. He then came back 2 days later and there was more of a purulent discharge. After examining him in the office the decision was made taken back to the OR and do an irrigation debridement of the left hip and a revision of the wound. . Allergies Allergy/AdvReac Type Severity Reaction Status Date / Time MARCELLO Inhibitors AdvReac Mild Cough Verified 06/02/21 13:40 Home Medications Medication Instructions Recorded Confirmed Type azelastine 137 mcg (0.1 %) nasal 2 spray INTRANASAL DAILY PRN 10/08/18 06/02/21 History spray aerosol melatonin 10 mg tablet 10 mg PO HS PRN 10/08/18 06/02/21 History multivitamin 1 tab PO QAM 10/08/18 06/02/21 History omega 1-cdc-tfk-fish oil 1,000 mg 1 cap PO QAM 10/08/18 06/02/21 History (120 mg-180 mg) capsule (Fish Oil) allopurinol 300 mg tablet 300 mg PO QAM #90 tab 09/12/19 06/02/21 Rx sucralfate 100 mg/mL oral See Rx Instructions PO QID PRN 09/12/19 06/02/21 Rx suspension (Carafate) #420 ml montelukast 10 mg tablet 10 mg PO PM #90 tab 11/26/20 06/02/21 Rx alprazolam 0.25 mg tablet 0.25 mg PO HS #90 tab 01/07/21 06/02/21 Rx losartan 100 1 tab PO QAM #90 tab 01/13/21 06/02/21 Rx mg-hydrochlorothiazide 25 mg tablet diltiazem HCl 240 mg 240 mg PO QAM 04/09/21 06/02/21 History capsule,extended release 24 hr mirabegron 25 mg tablet,extended 25 mg PO QPM 04/09/21 06/02/21 History release 24 hr (Myrbetriq) pantoprazole 40 mg tablet,delayed 40 mg PO BID 04/09/21 06/02/21 History release simvastatin 40 mg tablet 40 mg PO HS 04/09/21 06/02/21 History solifenacin 10 mg tablet (Vesicare) 10 mg PO DAILY 30 Days #30 tab 04/15/21 06/02/21 Rx hydrocortisone-acetic acid 1 %-2 % 5 drp OTIC (EAR) BID PRN #10 ml 04/28/21 06/02/21 Rx ear drops aspirin 81 mg tablet,delayed 81 mg PO BID 42 Days #84 tab 05/18/21 06/02/21 Rx release oxycodone 5 mg tablet 5 mg PO Q6 PRN #40 tab 05/18/21 06/02/21 Rx zolpidem 10 mg tablet 10 mg PO HS PRN #30 tab 05/19/21 06/02/21 Rx cephalexin 500 mg capsule 500 mg PO TID 10 Days #30 cap 05/31/21 06/02/21 Rx Past Med/Surg History Medical History Asthma Atrial fibrillation intermittent Barretts esophagus BPH (benign prostatic hyperplasia) CAD (coronary artery disease) s/p CABG x4 (2013) Chronic back pain Conductive hearing loss Degenerative disc disease GERD (gastroesophageal reflux disease) History of gastric ulcer Hx of gout Hyperlipidemia Hypertension Insomnia Lumbar disc disorder with myelopathy Osteoarthritis Sleep apnea CPAP (non-compliant) Spinal stenosis Thoracic ascending aortic aneurysm Mildly dilated ascending aorta (4.1cm) per 12/2020 echo, "stable" per cardiology Type 2 diabetes mellitus Borderline, diet controlled Surgical History History of appendectomy History of cardiac cath 2013 ([facility]) > no stents History of carpal tunnel surgery of right wrist History of colonoscopy History of esophagogastroduodenoscopy (EGD) History of lumbar discectomy x2 L3-L4 History of prior ablation treatment Radiofrequency ablation of esophagus (done at [facility] [place]) for precancerous Allen's Esophagus History of tonsillectomy History of total hip arthroplasty LEFT History of total replacement of left shoulder joint History of wisdom tooth extraction Nausea and vomiting after administration of anesthetic agent S/P CABG x 4 2013 ([facility] [place]) Status post medial meniscus repair Left knee Status post right foot surgery Family History Father Family history of diabetes mellitus Myocardial infarction Stroke Brother Family history of esophageal cancer Stroke Son Coronary heart disease Other Diabetes Heart disease Hypertension No family history of adverse response to anesthesia Social History Smoking Status: Former smoker Smoking End Date: 25 YEARS AGO; Second Hand Exposure: Yes (parents smoked); Do You Dip or Chew Tobacco: No; Hx Alcohol Use: Yes Alcohol type: wine Preferred Language: Greenlandic Communication Ability: Effective Math Interventionist Required: No Beliefs That Will Affect Care: None marital status: Current Living Situation: Spouse Feels Safe at Home: Yes Safety Concerns: Feels Safe At This Time Assistive Devices: Cane and Glasses Assistive Devices Comment: READING GLASSES Review of Systems All systems reviewed & are unremarkable except as noted in HPI & below. Physical Exam Physical examination of the left hip does show some swelling throughout his whole left hip and leg. He has little bit of cellulitis around the area. The incision does not look too bad but there is purulent discharge that can be expressed from the wound. . Constitutional WD/WN, vitals as above Eyes PERRL, conjunctivae normal, anicteric sclerae ENMT external ear and nose normal, oropharynx normal Neck trachea midline, no thyromegaly Respiratory normal respiratory effort Cardiovascular RRR, no murmur, no edema Gastrointestinal (Abdomen) normal bowel sounds, soft, nontender, no hepatosplenomegaly Psychiatric A+Ox3, euthymic affect Results & Data Results & Data Laboratory Results . Diagnostic Findings . PG Care Time/CCT Total # of Minutes Spent Total Time Spent with Patient: Total time spent is greater than 50% in coordination of care (as documented) at patient's floor/unit and/or counseling patient: Coding Level of Care Code None Diagnoses Postoperative wound infection of left hip T81.49XA
--- NOTE | 2021-06-03 13:13 | History & Physical Bridge Note ---
Date of Service June 03, 2021 History & Physical Bridge Note I have examined the patient, reviewed the History & Physical and in the interval since the performance of the History & Physical I have noted the following changes of clinical significance: no changes noted
[2021-06-03] MEDS ORDERED: EPINEPHrine INJ 1 MG/ML AMP ONE (13:24)
[2021-06-03] MEDS ORDERED: BUPIVACAINE 0.25% 30 ML VIAL ONE (13:25)
[2021-06-03] MEDS ORDERED: DAKIN'S SOLN 0.25% HALF STRENGTH 473ML BTL EXT ONE (13:36)
[2021-06-03] MEDS ORDERED: MIDAZOLAM HCL 1 MG/ML 2ML VIAL ONE (13:49)
[2021-06-03] MEDS ORDERED: fentaNYL citrate 100 MCG/2 ML VIAL ONE ×2 (13:49→14:36)
[2021-06-03] MEDS ORDERED: PROPOFOL IV EMULSION 10 MG/ML 20 ML VIAL IV ONE ×2 (13:49→14:36)
[2021-06-03] MEDS ORDERED: ATROPINE SULFATE 0.1 MG/ML 10ML SYR IV PRN (13:56)
[2021-06-03] MEDS ORDERED: ePHEDrine sulfate 50 MG/ML AMP IV PRN (13:56)
[2021-06-03] MEDS ORDERED: HYDROmorphone INJ 2 MG/ML SYR/VIAL IV PRN (13:56)
[2021-06-03] MEDS ORDERED: fentaNYL citrate 100 MCG/2 ML VIAL IV PRN (13:56)
[2021-06-03] MEDS ORDERED: ONDANSETRON INJ 2 MG/ML 2 ML VIAL IV PRN ×2 (13:56→17:50)
[2021-06-03] MEDS ORDERED: PHENYLEPHRINE 100MCG/ML 5ML SYR ONE (15:05)
[2021-06-03] MEDS ORDERED: ONDANSETRON INJ 2 MG/ML 2 ML VIAL ONE (15:05)
[2021-06-03] MEDS ORDERED: LIDOCAINE 2% 2 ML VIAL/AMP(20MG/ML) INFIL ONE ×2 (15:05→15:06)
[2021-06-03] MEDS ORDERED: HYDROmorphone INJ 2 MG/ML SYR/VIAL ONE (15:08)
--- NOTE | 2021-06-03 16:09 | Operative Report ---
PG Post Operative Report Pre & Post Diagnosis Operation Date: 06/03/21 14:20 Pre-Op Diagnosis: Postoperative wound infection of left hip. Post-Op Diagnosis: Postoperative wound infection of left hip. I identified the patient and participated in the time-out.: Yes Procedure Operation Date: 06/03/21 14:20 Actual Procedures p Irrigation and Debridement Left Hip with Head Exchange(Left) - Mathieu Robb DO Surgeon Mathieu Robb DO Hand Tier Mathieu Boston PAC Estimated Blood Loss 100 Findings Consistent with Post-Op Diagnosis Specimens Superficial cultures and deep cultures Complications none Disposition Disposition: Recovery Room Indications Jose Rafael is a pleasant 70-year-old male who underwent a left anterior hip replacement 17 days ago. He initially did very well. He then began having some drainage from the incision. The drainage then appeared purulent. We decided taken to the operating room for irrigation debridement of his left hip. Description of Procedure On June 03, 2021 Jose Rafael arrived at [facility] for the above procedure. He was seen in the preoperative holding area and the operative extremity was identified and signed. He was taken back to the operating room and laid on the table in supine position. He was put under general anesthesia. The left hip was placed in the Purist leg positioner. The left hip was then prepped and draped in sterile fashion. A timeout was done. The patient and the operative extremity was properly identified. All the francicso were removed and the previous incision was opened back up. There was a small amount of purulent discharge both proximally and distally within the incision area. It was not a very large area of abscess collection. This was cultured. The superficial wound was then irrigated with 3 L of normal saline solution. A debridement was done of the surrounding tissues. The wound was once again irrigated. It did not appear to go deep into the joint however given the amount of draining that he was having in the little amount of abscess that I saw superficially, I decided to do a full deep irrigation debridement of the left hip. I wanted to be aggressive. Dissection was taken down to the hip and the tensor fascia was retracted posteriorly and the rectus was retracted anteriorly. The capsule was easily identified. An arthrotomy was done. There was a large amount of yellow appearing serous fluid in the joint. This did not appear to be infected. This fluid was cultured. Because it appeared that this fluid was under a little bit of pressure, I did not feel that the infection did fully go into the joint. The wound was once again irrigated with 3 L of normal saline solution with bacitracin. I then dislocated the hip and remove the femoral head. I inspected the whole hip joint and there was no evidence of infection. I then did a 3-minute lavage with medium Dakin solution. I then scrubbed the components with a bacitracin scrub brush. I then irrigated the entire wound with 3 L of normal saline solution with pulse lavage. I then did a 3-minute Betadine dilute lavage. I then scrubbed the components with a Betadine scrub brush once again. I then irrigated the wound with another 3 L of normal saline solution with pulse lavage. I then irrigated with 3 L of normal saline with a gram of Ancef. At this point the gloves were changed and clean instruments were brought in. A new drape was placed around the hip and all new suction, pulse lavage and Bovie were used. A 40 mm ceramic femoral head was impacted into place. The hip was then reduced. I was happy with the overall reduction and stability. The wound was then irrigated once again. The capsule was then closed with #1 Vicryl suture. The fascia was then closed with #1 PDS suture. The deep fat layer was closed with 2-0 Vicryl. Skin was closed with 2- 0 Vicryl and a 3-0 nylon suture in a mattress fashion. A soft compressive dressing was then placed. He was then extubated and transferred to a [facility]. He was taken to the post anesthesia care unit in stable condition. He tolerated the procedure well. Mathieu Boston PA-C, was present for the entire procedure. He was critical for patient positioning, prepping, draping, retraction exposure, wound closure and application of sterile dressing. I attest to the content of the Intraoperative Record and any orders documented therein. Any exceptions are noted below.
--- NOTE | 2021-06-03 16:48 | Hospitalist Consultation ---
Date of Consultation June 03, 2021 Assessment & Plan (1) Postoperative wound infection of left hip: S/p I&D & wash-out with Dr. Robb on 06/03. Looks to be superficial. Given failure of Keflex, will presume MRSA infection, though not sure. - Start daptomycin with pharmacy dosing - Follow cultures from OR -> Per IDSA guidelines, can consider short course of abx (guidelines recommend 1-2 days) if cultures negative, and it remains considered a superficial infection. If deep cultures return positive, would certainly need longer course and likely consultation with ID for further recommendations. - Post-operative care per primary team (2) Hyponatremia: Na noted to be 127 on pre-op labs. No symptoms. Possibly from HCTZ. - Urine osms - Monitor (3) Coronary artery disease, occlusive: CABG May 2013. Follows with Dr. Landaverde. No acute concerns. EF is 40 - 45% on echo from 12/2020. - Continue home ASA (presently using BID as DVT ppx until 06/06/2021; may need to extend) - Hold ARB/HCTZ until we see Cr tomorrow - Not on home beta-ashley - Hold statin while on daptomycin (4) Atrial fibrillation: Paroxysmal. One episode in 02/2010. Not on anticoagulation by patient's choice. - Monitor HR - No anticoagulation (5) Hypertension: Good outpatient control. - Continue diltiazem - Hold ARB/HCTZ until we see Cr tomorrow (6) Type 2 diabetes mellitus: A1c was 5.7% on last check. Diet-controlled. - Will follow blood sugars on AM labs; unlikely to need sliding scale insulin (7) Obstructive sleep apnea: Not using CPAP at home. - Monitor for hypoxemia while still somewhat sedated from anesthesia (8) DVT prophylaxis: ASA 81 mg PO BID per orthopedics GI ppx: PPI PO BID History of Present Illness Reason for Consultation: Superficial surgical site infection Attending Physician: Mathieu Robb DO History of Present Illness 70yo M w/ hx of CAD, paroxysmal afib, and HTN who presents with superficial surgical site infection at the site of his recent left hip replacement. The patient had an uncomplicated left anterior total hip replacement with Dr. Robb on 05/17. He was discharged in good health. Initial visit, he had some mild drainage from the area, but it was serous. He was put on Keflex, but a mild cellulitis developed and purulent drainage. He was brought back to the hospital for an I&D and culturing. On my interview, he is doing well. He is still groggy from the surgery, but in no pain. Reports no fevers/chills, chest pain, shortness of breath, abdominal pain, nausea, or vomiting. Allergies Allergy/AdvReac Type Severity Reaction Status Date / Time MARCELLO Inhibitors AdvReac Mild Cough Verified 06/03/21 13:21 Home Medications Medication Instructions Recorded Confirmed Type azelastine 137 mcg (0.1 %) nasal 2 spray INTRANASAL DAILY PRN 10/08/18 06/03/21 History spray aerosol melatonin 10 mg tablet 10 mg PO HS PRN 10/08/18 06/03/21 History multivitamin 1 tab PO QAM 10/08/18 06/03/21 History omega 5-ldv-cxz-fish oil 1,000 mg 1 cap PO QAM 10/08/18 06/03/21 History (120 mg-180 mg) capsule (Fish Oil) allopurinol 300 mg tablet 300 mg PO QAM #90 tab 09/12/19 06/03/21 Rx sucralfate 100 mg/mL oral See Rx Instructions PO QID PRN 09/12/19 06/03/21 Rx suspension (Carafate) #420 ml montelukast 10 mg tablet 10 mg PO PM #90 tab 11/26/20 06/03/21 Rx alprazolam 0.25 mg tablet 0.25 mg PO HS #90 tab 01/07/21 06/03/21 Rx losartan 100 1 tab PO QAM #90 tab 01/13/21 06/03/21 Rx mg-hydrochlorothiazide 25 mg tablet diltiazem HCl 240 mg 240 mg PO QAM 04/09/21 06/03/21 History capsule,extended release 24 hr mirabegron 25 mg tablet,extended 25 mg PO QPM 04/09/21 06/03/21 History release 24 hr (Myrbetriq) pantoprazole 40 mg tablet,delayed 40 mg PO BID 04/09/21 06/03/21 History release simvastatin 40 mg tablet 40 mg PO HS 04/09/21 06/03/21 History solifenacin 10 mg tablet (Vesicare) 10 mg PO DAILY 30 Days #30 tab 04/15/21 06/03/21 Rx hydrocortisone-acetic acid 1 %-2 % 5 drp OTIC (EAR) BID PRN #10 ml 04/28/21 06/03/21 Rx ear drops aspirin 81 mg tablet,delayed 81 mg PO BID 42 Days #84 tab 05/18/21 06/03/21 Rx release oxycodone 5 mg tablet 5 mg PO Q6 PRN #40 tab 05/18/21 06/03/21 Rx zolpidem 10 mg tablet 10 mg PO HS PRN #30 tab 05/19/21 06/03/21 Rx cephalexin 500 mg capsule 500 mg PO TID 10 Days #30 cap 05/31/21 06/03/21 Rx Patient History Medical History Asthma Atrial fibrillation intermittent Barretts esophagus BPH (benign prostatic hyperplasia) CAD (coronary artery disease) s/p CABG x4 (2013) Chronic back pain Conductive hearing loss Degenerative disc disease GERD (gastroesophageal reflux disease) History of gastric ulcer Hx of gout Hyperlipidemia Hypertension Insomnia Lumbar disc disorder with myelopathy Osteoarthritis Sleep apnea CPAP (non-compliant) Spinal stenosis Thoracic ascending aortic aneurysm Mildly dilated ascending aorta (4.1cm) per 12/2020 echo, "stable" per cardiology Type 2 diabetes mellitus Borderline, diet controlled Surgical History History of appendectomy History of cardiac cath 2013 ([facility]) > no stents History of carpal tunnel surgery of right wrist History of colonoscopy History of esophagogastroduodenoscopy (EGD) History of lumbar discectomy x2 L3-L4 History of prior ablation treatment Radiofrequency ablation of esophagus (done at [facility] [place]) for precancerous Allen's Esophagus History of tonsillectomy History of total hip arthroplasty LEFT History of total replacement of left shoulder joint History of wisdom tooth extraction Nausea and vomiting after administration of anesthetic agent S/P CABG x 4 2013 ([facility] [place]) Status post medial meniscus repair Left knee Status post right foot surgery Family History Father Family history of diabetes mellitus Myocardial infarction Stroke Brother Family history of esophageal cancer Stroke Son Coronary heart disease Other Diabetes Heart disease Hypertension No family history of adverse response to anesthesia Social History Smoking Status: Former smoker Smoking End Date: 25 YEARS AGO; Second Hand Exposure: Yes (parents smoked); Do You Dip or Chew Tobacco: No; Hx Alcohol Use: Yes Alcohol type: wine Preferred Language: Malay Communication Ability: Effective Rn Womens Health Required: No Beliefs That Will Affect Care: None marital status: Current Living Situation: Spouse Feels Safe at Home: Yes Safety Concerns: Feels Safe At This Time Assistive Devices: Cane and Glasses Assistive Devices Comment: READING GLASSES Review of Systems Review of Systems: All systems reviewed & are unremarkable except as noted in HPI & below Physical Exam Constitutional: WD/WN, vitals as above Eyes: EOM intact bilaterally; no conjunctival abnormality ENMT: external ear and nose normal, oropharynx normal Neck: trachea midline, no thyromegaly normal visual inspection Respiratory: normal respiratory effort, lungs clear to auscultation no respiratory distress Cardiovascular: RRR, no murmur, no edema Gastrointestinal (Abdomen): Inspection/Auscultation: abdomen normal to inspection; abdomen not distended Musculoskeletal: no cyanosis or clubbing, extremities motor strength 5/5 Skin: no rashes, warm and dry Neurologic: moves all extremities and awake Psychiatric: Orientation: alert, oriented to person and cooperative Results & Data Results & Data ([facility]) Vital Signs (Past 12 Hours) Vital Signs Temp Pulse Pulse Resp BP BP Pulse Ox 06/03/21 16:40 85 16 136/90 98 06/03/21 16:30 99 H 16 147/88 H 98 06/03/21 16:23 36.4 C L 79 16 114/83 96 06/03/21 13:31 36.9 C 86 18 148/108 H 94 PG Care Time/CCT Total # of Minutes Spent Total Time Spent with Patient: Total time spent is greater than 50% in coordination of care (as documented) at patient's floor/unit and/or counseling patient: Coding Level of Care Code 74574 Office/OBS Consult Lvl 4 Diagnoses Postoperative wound infection of left hip T81.49XA Coronary artery disease, occlusive I25.10 Atrial fibrillation I48.91 Hypertension I10 Type 2 diabetes mellitus E11.9 Obstructive sleep apnea G47.33 DVT prophylaxis Z29.9 Hyponatremia E87.1
--- NOTE | 2021-06-03 17:18 | Anesthesiology Progress Note ---
Date of Service June 03, 2021 Anesthesia Post Procedure Vital Signs Vital Signs: Temp Pulse Pulse Resp BP BP Pulse Ox 06/03/21 17:10 36.6 C 91 H 16 114/91 96 06/03/21 17:00 36.6 C 98 H 16 140/99 97 06/03/21 16:50 99 H 16 125/87 95 06/03/21 16:40 85 16 136/90 98 06/03/21 16:30 99 H 16 147/88 H 98 06/03/21 16:23 36.4 C L 79 16 114/83 96 06/03/21 13:31 36.9 C 86 18 148/108 H 94 Pain Intensity Left Hip: Pain Intensity: 4 Transfer of Care Handoff Completed per policy Notes Mental Status: alert / awake / arousable Patient Amnestic to Procedure: Yes Nausea / Vomiting: adequately controlled Pain: adequately controlled Airway Patency, RR, SpO2: stable & adequate BP & HR: stable & adequate Hydration State: stable & adequate Anesthetic Complications: no major complications apparent
[2021-06-03] MEDS ORDERED: MAGNESIUM HYDROXIDE SUSP 30 ML UDC PO PRN (17:50)
[2021-06-03] MEDS ORDERED: METOCLOPRAMIDE HCL INJ 5 MG/ML 2 ML VIAL IV PRN (17:50)
[2021-06-03] MEDS ORDERED: NALOXONE HCL 0.4 MG/1 ML VIAL/CARP IV PRN (17:50)
[2021-06-03] MEDS ORDERED: oxyCODONE HCL IR 5 MG TAB (IMMEDIATE RELEASE) PO PRN (17:50)
[2021-06-03] MEDS ORDERED: HYDROmorphone INJ 1 MG/ML SYRINGE IV PRN (17:50)
[2021-06-03] MEDS ORDERED: bisacodyL 10 MG SUPP PR PRN (17:50)
[2021-06-03] MEDS ORDERED: ZOLPIDEM TARTRATE 10 MG TAB PO PRN (17:50)
[2021-06-03] MEDS ORDERED: MELATONIN 3 MG TAB PO PRN (18:03)
[2021-06-03] MEDS: SODIUM CHLORIDE 0.9% 1000ML 1,000 ML IV SCH (19:10)
[2021-06-03] MEDS ORDERED: DAPTOmycin 500 MG in SYRINGE 0 ML IV SCH (20:00)
[2021-06-03] MEDS: KETOROLAC TROMETHAMINE 15 MG/ML VIAL IV SCH (20:15)
[2021-06-03] MEDS: ASPIRIN 81 MG ECTAB PO SCH (20:16)
[2021-06-03] MEDS: DOCUSATE SODIUM 100 MG CAP PO SCH (20:16)
[2021-06-03] MEDS: PANTOprazole 40 MG TAB PO SCH (20:17)
[2021-06-03] MEDS ORDERED: MIRABEGRON ER 25 MG TAB PO SCH (21:00)
[2021-06-03] MEDS ORDERED: SENNA 8.6 MG TAB PO SCH (21:00)
[2021-06-03] MEDS ORDERED: ALPRAZolam 0.25 MG TABLET PO SCH (21:00)
[2021-06-03] MEDS ORDERED: MONTELUKAST SODIUM 10 MG TABLET PO SCH (21:00)
[2021-06-04] MEDS: VESICARE - ORDER AWAITING ACTION SCH ×2 (00:09→07:33)
[2021-06-04] MEDS: KETOROLAC TROMETHAMINE 15 MG/ML VIAL IV SCH ×2 (01:48→07:34)
[2021-06-04] MEDS: SODIUM CHLORIDE 0.9% 1000ML 1,000 ML IV SCH (04:20)
[2021-06-04 07:16] LABS: Basophils # (auto) 0.01 K/uL (0-0.2); Basophils % (auto) 0.2 %; Hematocrit (blood only) 29.2 % (42-52); Immature Granulocytes # (auto) 0.02 K/uL (0.00-0.02); Immature Granulocytes % (auto) 0.3 %; Lymphocytes # (auto) 0.86 K/uL (1.2-3.4); Mean Corpuscular Hemoglobin 34.1 pg (25-34); Mean Corpuscular Hgb Conc 34.2 g/dL (32-36); Mean Corpuscular Volume 99.7 fL (80-100); Mean Platelet Volume 10.2 fL (7.4-10.4); Monocytes # (auto) 0.55 K/uL (0.11-0.59); Monocytes % (auto) 8.3 %; Neutrophils # (auto) 5.19 K/uL (1.4-6.5); Neutrophils % (auto) 78.2 %; Platelet Count 298 K/uL (130-400); RDW Coefficient of Variation 13.3 % (11.5-14.5); RDW Standard Deviation 48.4 fL (36.4-46.3); Red Blood Count 2.93 M/uL (4.7-6.1); White Blood Count 6.63 K/uL (4.8-10.8)
[2021-06-04] MEDS: DOCUSATE SODIUM 100 MG CAP PO SCH (07:35)
[2021-06-04] MEDS: PANTOprazole 40 MG TAB PO SCH (07:36)
[2021-06-04] MEDS: ASPIRIN 81 MG ECTAB PO SCH (07:36)
[2021-06-04 07:46] LABS: BUN Creatinine Ratio 17.7 (10-20); Calcium 8.4 mg/dl (8.5-10.1); Creatinine Clr Calc Pharmacy 85.2 ml/min; Est GFR (African American) 85.7 ml/min; Potassium 4.1 mmol/L (3.5-5.1)
[2021-06-04] MEDS ORDERED: dexAMETHasone 4 MG TAB PO SCH (08:00)
[2021-06-04] MEDS ORDERED: MULTIVITAMIN TAB PO SCH (09:00)
[2021-06-04] MEDS ORDERED: dilTIAZem HCL 240 MG CAPCR PO SCH (09:00)
[2021-06-04] MEDS ORDERED: allopurinoL 300 MG TAB PO SCH (09:00)
[2021-06-04] MEDS ORDERED: LOSARTAN/HCTZ 50/12.5MG TAB PO SCH ×2 (09:00)
--- NOTE | 2021-06-04 09:24 | Orthopedic Progress Note ---
Date of Service June 04, 2021 Assessment & Plan (1) Postoperative wound infection of left hip: The infection appears to be mainly superficial. The superficial wound culture showed organisms on Gram stain but the deep cultures did not. We will get him set up with an ultrasound-guided IV today. We will keep him on daptomycin while we await final cultures. He will be seen by physical therapy today for ambulation and range of motion exercises. He can be discharged home later today on IV daptomycin if were able to get everything set up. He will follow-up with orthopedics in 2 to 3 weeks. We will give him a call in a few days to continue or change his antibiotics appropriately. Subjective Jose Rafael was seen and examined at bedside this morning. Overall is doing fairly well. Is not having much pain in the left hip. He has been up and ambulating to the bathroom. He has no complaints.. Review of Systems All systems reviewed & are unremarkable except as noted in HPI & below. Physical Exam On physical examination of the left hip, the dressing is clean and dry. His leg lengths are equal. He has active dorsiflexion plantarflexion of his left ankle.. Results & Data Results & Data Laboratory Results . Diagnostic Findings . PG Care Time/CCT Total # of Minutes Spent Total Time Spent with Patient: Total time spent is greater than 50% in coordination of care (as documented) at patient's floor/unit and/or counseling patient: Coding Level of Care Code 17165 Post Operative Follow-Up Diagnoses Postoperative wound infection of left hip T81.49XA
[2021-06-04] MEDS ORDERED: DAPTOmycin 350 MG in SYRINGE 0 ML IV SCH (12:00)
--- NOTE | 2021-06-04 18:47 | Hospitalist Progress Note ---
Date of Service June 04, 2021 Assessment & Plan (1) Postoperative wound infection of left hip: Plan: S/p I&D & wash-out with Dr. Robb on 06/03. Looks to be superficial. Given failure of Keflex, will presume MRSA infection, though not sure. - Follow cultures from OR -> Per IDSA guidelines, can consider short course of abx (guidelines recommend 1-2 days) if cultures negative, and it remains considered a superficial infection. If deep cultures return positive, would certainly need longer course and likely consultation with ID for further recommendations. - Post-operative care per primary team - Started daptomycin 500 mg IV daily. Given dose prior to discharge with plan to start home daptomycin tomorrow morning. (2) Hyponatremia: Plan: Na noted to be 127 on pre-op labs. No symptoms. Possibly from HCTZ. - Monitor -> Up to 130 on discharge; can follow up with BMP in 1-2 weeks with PCP. (3) Coronary artery disease, occlusive: Plan: CABG May 2013. Follows with Dr. Landaverde. No acute concerns. EF is 40 - 45% on echo from 12/2020. - Continue home ASA (presently using BID as DVT ppx until 06/06/2021; may need to extend) - Continue ARB/HCTZ - Not on home beta-ashley - Hold statin while on daptomycin -> Discussed with patients. (4) Atrial fibrillation: Plan: Paroxysmal. One episode in 02/2010. Not on anticoagulation by patient's choice. - Monitor HR - No anticoagulation (5) Hypertension: Plan: Good outpatient control. - Continue diltiazem, ARB/HCTZ (6) Type 2 diabetes mellitus: Plan: A1c was 5.7% on last check. Diet-controlled. - Will follow blood sugars on AM labs; unlikely to need sliding scale insulin (7) Obstructive sleep apnea: Plan: Not using CPAP at home. - Monitor for hypoxemia while still somewhat sedated from anesthesia (8) DVT prophylaxis: Plan: ASA 81 mg PO BID per orthopedics GI ppx: PPI PO BID Admission and Anticipated Discharge Date Admission Date: June 03, 2021 Subjective Doing well today. Not much pain. Physical Exam Constitutional: WD/WN, vitals as above Eyes: EOM intact bilaterally; no conjunctival abnormality ENMT: external ear and nose normal, oropharynx normal Neck: trachea midline, no thyromegaly normal visual inspection Respiratory: normal respiratory effort, lungs clear to auscultation no respiratory distress Cardiovascular: RRR, no murmur, no edema Gastrointestinal (Abdomen): Inspection/Auscultation: abdomen normal to inspection; abdomen not distended Musculoskeletal: no cyanosis or clubbing, extremities motor strength 5/5 Skin: no rashes, warm and dry Neurologic: moves all extremities and awake Psychiatric: Orientation: alert, oriented to person and cooperative PG Care Time/CCT Total # of Minutes Spent Total Time Spent with Patient: Total time spent is greater than 50% in coordination of care (as documented) at patient's floor/unit and/or counseling patient: Coding Level of Care Code 84350 Subseq Hosp Care Lvl 2 Diagnoses Postoperative wound infection of left hip T81.49XA Hyponatremia E87.1 Coronary artery disease, occlusive I25.10 Atrial fibrillation I48.91 Hypertension I10 Type 2 diabetes mellitus E11.9 Obstructive sleep apnea G47.33 DVT prophylaxis Z29.9
--- NOTE | 2021-06-18 15:35 | Discharge Summary ---
Date of Service June 18, 2021 Admission HPI (Per Admitting) Jose Rafael is a pleasant 70-year-old male who underwent a left anterior hip replacement on May 17. He was initially doing extremely well. He is back at work. Unfortunately started noticing some persistent drainage from his incision. He came to our office on a Monday. It looked mostly serous drainage and he was started on some Keflex. He then came back 2 days later and there was more of a purulent discharge. After examining him in the office the decision was made taken back to the OR and do an irrigation debridement of the left hip and a revision of the wound. . Admission Exam (Per Admitting) Physical examination of the left hip does show some swelling throughout his whole left hip and leg. He has little bit of cellulitis around the area. The incision does not look too bad but there is purulent discharge that can be expressed from the wound. . Principal Diagnosis Same as "Discharge Diagnosis" noted below under Discharge Instructions. Discharge Exam On physical examination of the left hip, the dressing is clean and dry. His leg lengths are equal. He has active dorsiflexion plantarflexion of his left ankle.. Discharge Data Consultations 06/03/21 17:50 Consult Internal Medicine Routine Procedures Performed Operation Date: 06/03/21 14:20 Actual Procedures s Irrigation and Debridement Left Hip(Left) - Mathieu Robb DO p with Head Exchange(Left) - Mathieu Robb DO Hospital Course (1) Postoperative wound infection of left hip: Jose Rafael arrived at [facility] and underwent an I&D of his left hip with a femoral head exchange. The superficial wound appeared infected and was cultured. The deep wound did not appear infected and was also cultured. Postoperatively he was started on daptomycin IV and transferred to the general orthopedic floors. The hospitalist team was consulted. His initial blood cultures were showing possible staph species in the superficial wound culture and no growth of the deep wound culture. He was given an ultrasounded guided IV line and discharged to home on IV daptomycin. He will receive a phone call in a few days once the final cultures are in and will receive further guidance then. He will remain on aspirin for DVT prophylaxis. He will follow-up with orthopedics in 2 weeks. PG Care Time/CCT Total # of Minutes Spent Total Time Spent with Patient: Total time spent is greater than 50% in coordination of care (as documented) at patient's floor/unit and/or counseling patient: Discharge Plan Discharge Items Patient Disposition: Home - Home Health Services Reason For Visit: POST SURGICAL CARE Discharge Diagnosis: Superficial infection of the left hip Activity: Resume your previous activity Non-emergency contact: Surgeon Call non-emergency contact if: your wound has increased redness and your wound has increased drainage Follow-up/Referrals: Pro,Donal Hidalgo MD [Primary Care Provider] - Mathieu Robb DO [Physician] - 06/22/21 9:00 am (Please follow up with Dr. Robb per his instructions.) Diet: Regular Addtl Attending Provider Instructions: Activity and Therapy Recommendations: * Resume physical therapy with the left hip Medications: * Continue aspirin 81 mg twice a day * Continue the daptomycin daily as instructed. TEDs/Elastic Stockings: The white elastic stockings help limit swelling and prevent blood clots from forming in your legs. The more you wear them, the more they work. Wear them for six weeks. Dressing Care: You may do daily dry dressing changes. Showering: You may shower 5 days after the day of surgery and shower with the sutures exposed. Let soapy water run over the sutures and pat them dry. Do not scrub or soak the incision. Things To Watch For: * Drainage from the incision site that occurs more than one week after your surgery. * Increased redness at the incision site. * Fever above 102 degrees Fahrenheit. * Unusual chest pain or shortness of breath. * Call [facility] at with any of the above problems Follow-Up Visit: Follow-up with Dr. Robb in 2 to 3 weeks for suture removal. Please call to make an appointment for a time that works for you. Office Instructions: More detailed instructions as well as Frequently Asked Questions were provided in a folder by our office when you signed-up for surgery. Please review these instructions when you get home. If you have any further questions or concerns, please feel free to call the office at [phone] Addtl Guest Services Representative Provider Instructions: Please hold your simvastatin while on the daptomycin. You can resume it as soon as you finish your antibiotics. Pending Studies at Discharge: No Stand-Alone Forms: [facility] Sm[facility] Cessation Medications and DC Order Prescriptions: New daptomycin 500 mg recon soln 500 mg IV DAILY Qty: 7 RF: 0 Continued sucralfate [Carafate] 100 mg/mL suspension See Rx Instructions PO QID PRN (Reason: Acid Reflux) Qty: 420 RF: 3 allopurinol 300 mg tablet 300 mg PO QAM Qty: 90 RF: 3 montelukast 10 mg tablet 10 mg PO PM Qty: 90 RF: 3 alprazolam 0.25 mg tablet 0.25 mg PO HS Qty: 90 RF: 2 losartan-hydrochlorothiazide 100-25 mg tablet 1 tab PO QAM Qty: 90 RF: 3 solifenacin [Vesicare] 10 mg tablet 10 mg PO DAILY 30 Days Qty: 30 RF: 0 zolpidem 10 mg tablet 10 mg PO HS PRN (Reason: Sleep) Qty: 30 RF: 0 hydrocortisone-acetic acid 1-2 % drops 5 drp otic (ear) BID PRN (Reason: Pain and drainage) Qty: 10 RF: 5 multivitamin Tablet 1 tab PO QAM RF: 0 azelastine 137 mcg (0.1 %) Aerosol,[place] 2 spray INTRANASAL DAILY PRN (Reason: Nasal Congestion) RF: 0 omega 7-[id number]-[id number]-fish oil [Fish Oil] 1,000 mg (120 mg-180 mg) Capsule 1 cap PO QAM RF: 0 melatonin 10 mg Tablet 10 mg PO HS PRN (Reason: Sleep) RF: 0 diltiazem HCl 240 mg capsule,extended release 24hr 240 mg PO QAM RF: 0 pantoprazole 40 mg tablet,delayed release (DR/EC) 40 mg PO BID RF: 0 Myrbetriq 25 mg tablet extended release 24 hr 25 mg PO QPM RF: 0 aspirin 81 mg Tablet,Delayed Release (Dr/Ec) 81 mg PO BID 42 Days Qty: 84 RF: 0 oxycodone 5 mg tablet 5 mg PO Q6 PRN (Reason: pain) Qty: 40 RF: 0 Discontinued cephalexin 500 mg capsule 500 mg PO TID 10 Days Qty: 30 RF: 0 simvastatin 40 mg tablet 40 mg PO HS RF: 0 No Action meloxicam 15 mg tablet 15 mg PO DAILY RF: 0 sulfamethoxazole-trimethoprim [Bactrim DS] 800-160 mg tablet 1 tab PO Q12H 30 Days Qty: 60 RF: 0 Discharge Orders: Discharge Order (Routine); Ordered 06/04/21 Ordered By: Johnny Chau/Other Patient Handouts: Preventing Falls in the Home Admission Data Admit Date/Time: 06/03/21 16:18 Attending Provider: Mathieu Robb Admit Provider: Mathieu Robb Primary Care Provider: Donal Willis Other Providers: Johnny Lundberg ; [facility] Other Interventions: Discharge Summary Assessment (RN) Last Done: 06/04/21 12:31
== END 2021-06-04 13:33 | disposition home health service (06) ==
LOC: ASU 12:36 → 3E 12:36
PROC: M.IDHIP (2021-06-03 14:20)

== ENCOUNTER 2023-05-01 07:52 | Inpatient (IN) ==
[2023-05-01] MEDS ORDERED: ALBUT/IPRATROP 3MG/0.5MG NEB 3 ML VIAL NEB STA (08:43)
[2023-05-01] MEDS ORDERED: BENZONATATE 100 MG CAPSULE PO ONE (08:43)
[2023-05-01 09:01] LABS: Basophils # (auto) 0.08 K/uL (0.00-0.20); Basophils % (auto) 0.7 %; Eosinophils # (auto) 0.14 K/uL (0.00-0.50); Eosinophils % (auto) 1.3 %; Hematocrit (blood only) 35.6 % (42.0-52.0); Hemoglobin 11.9 g/dl (14.0-18.0); Immature Granulocytes # (auto) 0.16 K/uL (0.01-0.20); Immature Granulocytes % (auto) 1.5 %; Lymphocytes # (auto) 1.45 K/uL (1.20-3.40); Lymphocytes % (auto) 13.5 %; Mean Corpuscular Hemoglobin 32.4 pg (25.0-34.0); Mean Corpuscular Hgb Conc 33.4 g/dL (32.0-36.0); Mean Platelet Volume 10.3 fL (9.4-12.4); Monocytes # (auto) 0.86 K/uL (0.11-0.59); Neutrophils # (auto) 8.09 K/uL (1.40-6.50); Nucleated RBC # (auto) 0.03 K/uL (0.00-0.12); Nucleated RBC % (auto) 0.3 %; Platelet Count 333 K/uL (130-400); RDW Coefficient of Variation 14.6 % (11.5-14.5); RDW Standard Deviation 52.1 fL (36.4-46.3); Red Blood Count 3.67 M/uL (4.70-6.10); White Blood Count 10.78 K/ul (4.8-10.8)
[2023-05-01 09:17] LABS: Albumin Globulin Ratio 1.4 (0.9-2); Albumin Level 4.1 gm/dl (3.4-5.0); BUN Creatinine Ratio 19.3 (10-20); Bilirubin,Total 1.2 mg/dl (0.2-1.0); Calcium 9.7 mg/dl (8.6-10.3); Creatinine Clr Calc Pharmacy 95.4 ml/min; Est GFR (African American) 98.1 ml/min; Est GFR (Non-African American) 84.6 ml/min; Magnesium 1.4 mg/dl (1.7-2.4); Potassium 4.1 mmol/L (3.5-5.1); Total Protein 7.1 gm/dl (6.0-8.3)
[2023-05-01 09:23] LABS: Troponin I High Sensitivity 15.8 pg/ml (0-20)
--- NOTE | 2023-05-01 09:25 | XRay Report ---
XR chest 1V portable CLINICAL HISTORY: Shortness of breath. Cough. COMPARISON STUDY: Chest CT September 28, 2018. Chest radiograph March 09, 2023. FINDINGS: Median sternotomy wires and left shoulder arthroplasty are incidentally noted. There is no pneumothorax. No pleural effusion is identified. Mild right basilar opacity is present. There is mild interstitial thickening. IMPRESSION: 1. Cardiomegaly with mild interstitial pulmonary edema. 2. Possible mild right basilar opacity. ACT 112: Negative or not required by law. Electronically signed by: Donny Marley M.D. 05/01/2023 9:23 AM
[2023-05-01] MEDS ORDERED: FUROSEMIDE INJ 20 MG/2 ML VIAL IV ONE (09:39)
[2023-05-01] MEDS ORDERED: cefTRIAXone SODIUM 2,000 MG/70 ML BAG IV STA (09:39)
[2023-05-01] MEDS ORDERED: FUROSEMIDE 40 MG/4 ML VIAL IV ONE (09:43)
--- NOTE | 2023-05-01 09:46 | Emergency Department Note ---
Impression & Plan SOB (shortness of breath), Cough, Hypoxia, Pulmonary edema ED Provider Note ED Provider Note NAME: YOU DUARTE AGE:72 SEX: Male : 1950 ARRIVES VIA: Private vehicle INFORMANT: Patient ED PROVIDER(s): Beth Elmore DO CHIEF COMPLAINT: Cough, shortness of breath HPI: This is a 72-year-old male presents emergency department due to concern for persistent cough and mild shortness of breath. Patient states he first developed a cough a week ago. He took 2 home COVID test which were negative. He did then travel with his son to [place]. He states he obtained a Z-Devon while out there and did begin taking it. He states he completed that and returned home. He states he felt slightly improved but was still having symptoms while on the Z-Devon. He states since returning home the cough seem to be worsening and he was having difficulty sleeping. Patient does have prior cardiac history and follows with Dr. Landaverde. He is anticoagulated due to a history of atrial fibrillation. No other known sick contacts. He states he was having fevers and chills at home additionally and did take some Tylenol. He d enies myalgias and arthralgias. States he has had a decreased appetite over the course of the week additionally. He denies chest pain or palpitations, nasal congestion, or rhinorrhea. Patient states he has previously had his pneumonia shot. Patient noted to be 86% on room air upon presentation to triage. PAST MEDICAL HISTORY:See Below PAST SURGICAL HISTORY:See Below FAMILY HISTORY:See Below SOCIAL HISTORY:See Below HOME MEDICATIONS:See Below ALLERGIES:See Below VITALS:See Below PHYSICAL EXAMINATION: GENERAL: alert, uncomfortable appearing, well nourished, mild distress, non- toxic EYE EXAM: normal conjunctiva, PERRL and EOM's grossly intact OROPHARYNX: no exudate, no erythema, lips, buccal mucosa, and tongue normal and mucous membranes are moist NECK: supple, no nuchal rigidity, no adenopathy, non-tender LUNGS: Diminished to auscultation. Normal chest wall mechanics, bilateral scattered expiratory wheeze, rhonchi bilateral bases, conversational dyspnea HEART: no murmurs, S1 normal and S2 normal ABDOMEN: abdomen soft, non-tender, normo-active bowel sounds, no masses, no rebound or guarding. BACK: Back is symmetrical on inspection and there is no deformity, no midline tenderness, no CVA tenderness. SKIN: no rashes, petechiae, orbruising UPPER EXTREMITIES: upper extremities are grossly normal. FROM, nml pulses b/l. LOWER EXTREMITIES: No pitting edema. FROM, nml pulses b/l. NEURO EXAM: Normal sensorium, cranial nerves II-XII grossly intact, normal speech, no facial droop,nogross weakness of arms, no gross weakness of legs. Gross sensation intact. No ataxia. Vital Signs: reviewed and remarkable Differential Diagnosis: ACS, CHF, pneumonia, pleural effusion, pericardial effusion, PE, viral URI, aspiration, as well as others were considered MEDICAL DECISION MAKING: This is a 72-year-old male who presents emergency department due to persistent cough and increased shortness of breath. Patient with recent URI symptoms treated with Z-Devon. Patient afebrile here though was noted to be tachycardic and hypoxic. He was placed on oxygen via nasal cannula with improvement in his saturations. Labs drawn and sent, IV established, EKG and chest x-ray performed at bedside and interpreted by me and patient monitored on telemetry. Patient was given a DuoNeb here due to recent history as well as expiratory wheeze noted on auscultation. This did improve the wheezing, however underlying rales were still heard. Patient's x-ray appeared to reveal possible evolving infiltrate as well as pulmonary edema. Given several reasons for his symptoms as well as accompanying hypoxia, I discussed with the patient need for additional inpatient evaluation. Patient's labs also reviewed hypomagnesemia, he was given IV magnesium repletion. Patient started on additional antibiotics for the possible pneumonia. Bio fire nasal swab also sent. Case discussed with [facility] hospitalist team for additional evaluation and treatment. Patient also given dose of IV Lasix in the ER. Patient's heart rate did improve with decreased work of breathing. I do not suspect PE given he is currently anticoagulated due to history of atrial fibrillation and states he has not missed or skipped any doses. Consultation(s): 46: Discussed with Jamia Menjivar, [facility] hospitalist team. ER Treatment Provided: See below Diagnostics Interpreted By Me: -ECG: A-fib at 104, left bundle branch block, leftward axis, normal QTc, occasional ectopy noted, no significant change in morphology compared to April 12, 2021 -Cardiac Monitoring: An order was placed for continuous cardiac monitoring. The monitor shows a rate of 98 with a.fib rhythm. -Laboratory studies: As stated above and show below. -Imaging studies: Chest x-ray: Appearance of bilateral increased interstitial markings, possibly evolving edema, possible evolving infiltrate at the right base, cardiomegaly noted Triage Nursing Note Reviewed Prior/Outside Records Reviewed -prior cardiology visit reviewed Past Med/Surg History Medical History Asthma Atrial fibrillation intermittent - denies current issues; currently wearing an event monitor to see if "he still has it" will be removed week of 01/09/23-- follows w/ Dr Landaverde, last visit 12/2022 Barretts esophagus no current issue - had ablation of esophagus BPH (benign prostatic hyperplasia) CAD (coronary artery disease) s/p CABG x 3 (2012) Chronic back pain Conductive hearing loss Degenerative disc disease GERD (gastroesophageal reflux disease) History of gastric ulcer History of respiratory tract infection 03/2023 was treated w/ antibiotics and medrol dose pack, has mild lingering congestion and slight cough Hx of gout Hyperlipidemia well controlled Hypertension well controlled Insomnia Lumbar disc disorder with myelopathy Osteoarthritis Sleep apnea NO LONGER USING DEVICE Spinal stenosis Thoracic ascending aortic aneurysm Mildly dilated ascending aorta (4.1cm) per 12/2020 echo, "stable" per cardiology Type 2 diabetes mellitus Borderline, diet controlled - changed diet and no problems Surgical History History of appendectomy History of cardiac cath 2013 ([facility]) > no stents History of carpal tunnel surgery of right wrist History of colonoscopy History of esophagogastroduodenoscopy (EGD) History of lumbar discectomy x2 L3-L4 History of prior ablation treatment [place]frequency [place] of [place] [facility] [place] for precancerous Allen's Esophagus History of tonsillectomy History of total hip arthroplasty B/L left 05/17/2021: SAB at L3-L4, 1 attempt. No issues per anesthesia postop progress note. 06/03/2021 irrigation and debridement of left hip: LMA#5, atraumatic. No issues per anesthesia postop progress note. History of total replacement of left shoulder joint History of wisdom tooth extraction Nausea and vomiting after administration of anesthetic agent especially morphine S/P CABG x 4 2013 [place] [place] Status post medial meniscus repair Left knee Status post right foot surgery Family History Father Family history of diabetes mellitus Myocardial infarction Stroke Brother Family history of esophageal cancer Stroke Son Coronary heart disease Other Diabetes Heart disease Hypertension No family history of adverse response to anesthesia Social History Smoking Status: Never smoker Cigarettes Per Day: QUIT 32 YRS AGO; Second Hand Exposure: No; Do You Dip or Chew Tobacco: No; Hx Alcohol Use: Yes Alcohol type: wine Hx Substance Use: No Preferred Language: Guatemalan Communication Ability: Effective 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 Beliefs That Will Affect Care: None marital status: Current Living Situation: Spouse Feels Safe at Home: Yes Assistive Devices: Glasses Allergies Allergies Allergy/AdvReac Type Severity Reaction Status Date / Time MARCELLO Inhibitors AdvReac Mild Cough Verified 05/01/23 10:10 Home Meds Home Medications Medication Instructions Recorded Confirmed azelastine 137 mcg (0.1 %) nasal 2 spray intranasal DAILY PRN Nasal 10/08/18 05/01/23 spray aerosol Congestion melatonin 10 mg tablet 10 mg PO HS PRN Sleep 10/08/18 05/01/23 multivitamin 1 tab PO QAM 10/08/18 05/01/23 omega 2-bff-mze-fish oil 1,000 mg 1 cap PO QAM 10/08/18 05/01/23 (120 mg-180 mg) capsule (Fish Oil) aspirin 81 mg tablet,delayed 81 mg PO QAM 02/28/22 05/01/23 release (Adult Aspirin Regimen) finasteride 5 mg tablet 5 mg PO QAM 05/01/23 05/01/23 simvastatin 40 mg tablet 40 mg PO HS 05/01/23 05/01/23 Previous Rx's Medication Instructions Recorded diltiazem HCl 240 mg 240 mg PO QAM #90 caps 08/01/22 capsule,extended release 24 hr apixaban 5 mg tablet 5 mg PO BID #180 tabs 09/02/22 pantoprazole 40 mg tablet,delayed 40 mg PO BID #180 tabs 10/27/22 release albuterol sulfate 90 mcg/actuation 2 puff inhalation QID PRN 11/17/22 aerosol inhaler shortness of breath or wheezing #8.5 grams montelukast 10 mg tablet 10 mg PO PM #90 tabs 12/20/22 losartan 100 1 tab PO QAM #90 tabs 01/03/23 mg-hydrochlorothiazide 25 mg tablet amoxicillin 500 mg tablet 2,000 mg PO ONCE #4 tabs 01/04/23 zolpidem 10 mg tablet 10 mg PO HS PRN Sleep #30 tabs 01/23/23 allopurinol 300 mg tablet 300 mg PO QAM #90 tabs 02/02/23 alprazolam 0.25 mg tablet 0.25 - 0.5 mg PO HS #90 tabs 02/21/23 fluticasone 500 mcg-salmeterol 50 1 inh inhalation BID PRN cough, 03/06/23 mcg/dose blistr powdr for wheeze #60 ea inhalation Results & Data (ED) Vital Signs Vital Signs - 24 hr 05/01/23 07:58 05/01/23 08:05 05/01/23 08:06 Temperature 36.6 C Temperature Source Temporal Artery Scan Pulse Rate 111 H Pulse Rate from SpO2 Sensor Respiratory Rate 26 H 29 H Respiratory Effort / Characteristics Short of Breath Short of Breath Respiratory Depth Respiratory Pattern Regular Blood Pressure 159/104 H Blood Pressure Mean 122 Blood Pressure Position Sitting Pulse Oximetry 88 L 86 L 92 Oxygen Delivery Method Room Air Room Air Nasal Cannula Oxygen Flow Rate 3 Sepsis Recent Fever Within 48 Hours No Sepsis New/Unexplained Change in Mental Status No Sepsis Action Taken by Nursing No Action Required Oxygen Flow Rate - Titration Pulse Oximetry Post Tiitration 05/01/23 08:16 05/01/23 08:22 05/01/23 08:30 Temperature Temperature Source Pulse Rate 115 H Pulse Rate from SpO2 Sensor Respiratory Rate Respiratory Effort / Characteristics Non-Labored Labored Respiratory Depth Normal Respiratory Pattern Regular Blood Pressure Blood Pressure Mean Blood Pressure Position Pulse Oximetry 86 L Oxygen Delivery Method Nasal Cannula Oxygen Flow Rate 0 Sepsis Recent Fever Within 48 Hours Sepsis New/Unexplained Change in Mental Status Sepsis Action Taken by Nursing Oxygen Flow Rate - Titration 2 Pulse Oximetry Post Tiitration 97 05/01/23 09:10 05/01/23 09:30 Temperature Temperature Source Pulse Rate 99 H 104 H Pulse Rate from SpO2 Sensor 99 H 116 H Respiratory Rate 20 24 Respiratory Effort / Characteristics Respiratory Depth Respiratory Pattern Blood Pressure 154/120 H 149/97 H Blood Pressure Mean 131 114 Blood Pressure Position Pulse Oximetry 95 90 Oxygen Delivery Method Oxygen Flow Rate Sepsis Recent Fever Within 48 Hours Sepsis New/Unexplained Change in Mental Status Sepsis Action Taken by Nursing Oxygen Flow Rate - Titration Pulse Oximetry Post Tiitration Laboratory Data 05/01/23 08:10 05/01/23 08:10 Lab Results 05/01/23 05/01/23 05/01/23 Range/Units 08:10 08:10 08:10 WBC 10.78 (4.8-10.8) K/ul RBC 3.67 L (4.70-6.10) M/uL Hgb 11.9 L (14.0-18.0) g/dl Hct 35.6 L (42.0-52.0) % MCV 97.0 (80.0-100.0) fL MCH 32.4 (25.0-34.0) pg MCHC 33.4 (32.0-36.0) g/dL RDW Std Deviation 52.1 H (36.4-46.3) fL RDW Coeff of [place]ber[place] 14.6 H (11.5-14.5) % Plt Count 333 (130-400) K/uL MPV 10.3 (9.4-12.4) fL Immature Gran % (Auto) 1.5 % Neut % (Auto) 75.0 % Lymph % (Auto) 13.5 % [place] % (Auto) 8.0 % Eos % (Auto) 1.3 % Baso % (Auto) 0.7 % Neut # (Auto) 8.09 H (1.40-6.50) K/uL Lymph # (Auto) 1.45 (1.20-3.40) K/uL [place] # (Auto) 0.86 H (0.11-0.59) K/uL Eos # (Auto) 0.14 (0.00-0.50) K/uL Baso # (Auto) 0.08 (0.00-0.20) K/uL Immature Gran # (Auto) 0.16 (0.01-0.20) K/uL Absolute Nucleated RBC 0.03 (0.00-0.12) K/uL Nucleated RBC % (auto) 0.3 % Sodium 131 L (136-145) mmol/L Potassium 4.1 (3.5-5.1) mmol/L Chloride 93 L (98-107) mmol/L Carbon Dioxide 30 (21-32) mmol/L Anion Gap 8 (3-11) BUN 17 (6-23) mg/dl Creatinine 0.88 (0.6-1.4) mg/dl Est Cr Clr Drug Dosing 95.4 ml/min Est GFR ( Amer) 98.1 ml/min Est GFR (Non-Af Amer) 84.6 ml/min BUN/Creatinine Ratio 19.3 (10-20) Glucose 230 H (70-99(Fasting)) mg/dl Calcium 9.7 (8.6-10.3) mg/dl Magnesium 1.4 L (1.7-2.4) mg/dl Total Bilirubin 1.2 H (0.2-1.0) mg/dl AST 24 (13-39) U/L ALT 22 (7-52) U/L Alkaline Phosphatase 70 (34-104) U/L Troponin I High Sens 15.8 (0-20) pg/ml B-Natriuretic Peptide 895 H (0-100) pg/ml Total Protein 7.1 (6.0-8.3) gm/dl Albumin 4.1 (3.4-5.0) gm/dl Globulin 3.0 (2.5-4.0) gm/dl Albumin/Globulin Ratio 1.4 (0.9-2) Procalcitonin (0-0.5) ng/ml TSH (0.300-4.500) uIu/ml Adenovirus (PCR) (NotDetected) B. pertussis DNA (PCR) (NotDetected) B.parapertussis DNA PCR (NotDetected) C. pneumoniae DNA (PCR) (NotDetected) Coronavirus OC43 (PCR) (NotDetected) Coronavirus HKU1 (PCR) (NotDetected) Coronavirus 229E (PCR) (NotDetected) SARS-CoV-2 (PCR) (NotDetected) Coronavirus NL63 (PCR) (NotDetected) Human Metapneumovir PCR (NotDetected) Influenza Type A (PCR) (NotDetected) Influenza Type B (PCR) (NotDetected) M. pneumoniae (PCR) (NotDetected) Parainfluenza 1 (PCR) (NotDetected) Parainfluenza 2 (PCR) (NotDetected) Parainfluenza 3 (PCR) (NotDetected) Parainfluenza 4 (PCR) (NotDetected) RSV (PCR) (NotDetected) Entero/Rhino (PCR) (NotDetected) 05/01/23 05/01/23 05/01/23 Range/Units 08:55 09:56 09:56 WBC (4.8-10.8) K/ul RBC (4.70-6.10) M/uL Hgb (14.0-18.0) g/dl Hct (42.0-52.0) % MCV (80.0-100.0) fL MCH (25.0-34.0) pg MCHC (32.0-36.0) g/dL RDW Std Deviation (36.4-46.3) fL RDW Coeff of Herberth (11.5-14.5) % Plt Count (130-400) K/uL MPV (9.4-12.4) fL Immature Gran % (Auto) % Neut % (Auto) % Lymph % (Auto) % [place] % (Auto) % Eos % (Auto) % Baso % (Auto) % Neut # (Auto) (1.40-6.50) K/uL Lymph # (Auto) (1.20-3.40) K/uL [place] # (Auto) (0.11-0.59) K/uL Eos # (Auto) (0.00-0.50) K/uL Baso # (Auto) (0.00-0.20) K/uL Immature Gran # (Auto) (0.01-0.20) K/uL Absolute Nucleated RBC (0.00-0.12) K/uL Nucleated RBC % (auto) % Sodium (136-145) mmol/L Potassium (3.5-5.1) mmol/L Chloride (98-107) mmol/L Carbon Dioxide (21-32) mmol/L Anion Gap (3-11) BUN (6-23) mg/dl Creatinine (0.6-1.4) mg/dl Est Cr Clr Drug Dosing ml/min Est GFR ( Amer) ml/min Est GFR (Non-Af Amer) ml/min BUN/Creatinine Ratio (10-20) Glucose (70-99(Fasting)) mg/dl Calcium (8.6-10.3) mg/dl Magnesium (1.7-2.4) mg/dl Total Bilirubin (0.2-1.0) mg/dl AST (13-39) U/L ALT (7-52) U/L Alkaline Phosphatase (34-104) U/L Troponin I High Sens (0-20) pg/ml B-Natriuretic Peptide (0-100) pg/ml Total Protein (6.0-8.3) gm/dl Albumin (3.4-5.0) gm/dl Globulin (2.5-4.0) gm/dl Albumin/Globulin Ratio (0.9-2) Procalcitonin < 0.05 (0-0.5) ng/ml TSH 1.347 (0.300-4.500) uIu/ml Adenovirus (PCR) Not Detected (NotDetected) B. pertussis DNA (PCR) Not Detected (NotDetected) B.parapertussis DNA PCR Not Detected (NotDetected) C. pneumoniae DNA (PCR) Not Detected (NotDetected) Coronavirus OC43 (PCR) Not Detected (NotDetected) Coronavirus HKU1 (PCR) Not Detected (NotDetected) Coronavirus 229E (PCR) Not Detected (NotDetected) SARS-CoV-2 (PCR) Not Detected (NotDetected) Coronavirus NL63 (PCR) Not Detected (NotDetected) Human Metapneumovir PCR Not Detected (NotDetected) Influenza Type A (PCR) Not Detected (NotDetected) Influenza Type B (PCR) Not Detected (NotDetected) M. pneumoniae (PCR) Not Detected (NotDetected) Parainfluenza 1 (PCR) Not Detected (NotDetected) Parainfluenza 2 (PCR) Not Detected (NotDetected) Parainfluenza 3 (PCR) Not Detected (NotDetected) Parainfluenza 4 (PCR) Not Detected (NotDetected) RSV (PCR) Not Detected (NotDetected) Entero/Rhino (PCR) Not Detected (NotDetected) Administered Medications Albuterol (Albut/Ipratrop 3mg/0.5mg Neb 3 Ml Vial) 3 ml NEB Q4R YISEL; Protocol Stop: 05/31/23 13:13 Last Admin: 05/01/23 14:39 Dose: 3 ml Documented By: ARIANA Magnesium Sulfate/Dextrose (Magnesium Sulfate / D5w) 1 gm in 100 mls @ 50 mls/hr IV 1330 ONE Stop: 05/01/23 15:29 Last Admin: 05/01/23 11:58 Dose: 50 mls/hr Documented By: GAVIOTA Discontinued Medications Albuterol (Albut/Ipratrop 3mg/0.5mg Neb 3 Ml Vial) 3 ml NEB NOW STA; Protocol Stop: 05/01/23 08:44 Last Admin: 05/01/23 08:49 Dose: 3 ml Documented By: PANCHO Apixaban (Apixaban 5 Mg Tablet) 5 mg PO 1045 ONE Stop: 05/01/23 10:46 Last Admin: 05/01/23 11:57 Dose: 5 mg Documented By: GAVIOTA Aspirin (Aspirin 81 Mg Ectab) 81 mg PO NOW STA Stop: 05/01/23 10:24 Last Admin: 05/01/23 11:56 Dose: 81 mg Documented By: GAVIOTA Benzonatate (Benzonatate 100 Mg Capsule) 100 mg PO NOW ONE Stop: 05/01/23 08:44 Last Admin: 05/01/23 08:49 Dose: 100 mg Documented By: PANCHO Diltiazem HCl (Diltiazem Hcl 240 Mg Capcr) 240 mg PO 1045 ONE Stop: 05/01/23 10:46 Last Admin: 05/01/23 11:56 Dose: 240 mg Documented By: GAVIOTA Furosemide (Furosemide Inj 20 Mg/2 Ml Vial) 20 mg IV ONE ONE Stop: 05/01/23 09:40 Last Admin: 05/01/23 09:47 Dose: Not Given Documented By: PANCHO Furosemide (Furosemide 40 Mg/4 Ml Vial) Confirm Administered Dose 40 mg IV .STK- MED ONE Stop: 05/01/23 09:44 Last Admin: 05/01/23 09:47 Dose: 20 mg Documented By: PANCHO Magnesium Sulfate/Dextrose (Magnesium Sulfate / D5w) 1 gm in 100 mls @ 100 ml s/hr IV Q1H YISEL Stop: 05/01/23 11:26 Last Infusion: 05/01/23 14:37 Dose: 0 mls/hr Documented By: Admin: 05/01/23 12:05 Dose: 100 mls/hr Documented By: Infusion: 05/01/23 11:49 Dose: 0 mls/hr Documented By: Admin: 05/01/23 10:26 Dose: 100 mls/hr Documented By: PANCHO Ceftriaxone Sodium (Rocephin) 2,000 mg in 70 mls @ 140 mls/hr IV NOW STA Stop: 05/01/23 10:08 Last Infusion: 05/01/23 12:05 Dose: 0 mls/hr Documented By: Admin: 05/01/23 09:47 Dose: 140 mls/hr Documented By: PANCHO Azithromycin 500 mg/ Dextrose 255 mls @ 127.5 mls/hr IV ONE ONE Stop: 05/01/23 12:29 Last Infusion: 05/01/23 14:37 Dose: 0 mls/hr Documented By: Admin: 05/01/23 11:58 Dose: 127.5 mls/hr Documented By: GAVIOTA Losartan Potassium (Losartan Potassium 50 Mg Tab) 100 mg PO 1045 ONE Stop: 05/01/23 10:46 Last Admin: 05/01/23 11:57 Dose: 100 mg Documented By: GAVIOTA Pantoprazole Sodium (Pantoprazole 40 Mg Tab) 40 mg PO NOW STA Stop: 05/01/23 10:24 Last Admin: 05/01/23 11:56 Dose: 40 mg Documented By: GAVIOTA Imaging Data Radiologist's Impression: Chest X-Ray 05/01/23 08:43 XR chest 1V portable CLINICAL HISTORY: Shortness of breath. Cough. COMPARISON STUDY: Chest CT September 28, 2018. Chest radiograph March 09, 2023. FINDINGS: Median sternotomy wires and left shoulder arthroplasty are incidentally noted. There is no pneumothorax. No pleural effusion is identified. Mild right basilar opacity is present. There is mild interstitial thickening. IMPRESSION: 1. Cardiomegaly with mild interstitial pulmonary edema. 2. Possible mild right basilar opacity. ACT 112: Negative or not required by law. Electronically signed by: Donny Marley M.D. 05/01/2023 9:23 AM Discharge Plan Visit Data Chief Complaint: Shortness of Breath/Dyspnea Stated Complaint: SEVERE SOB ED Provider: Beth Elmore Discharge Problem: SOB (shortness of breath), Cough, Hypoxia, Pulmonary edema Patient Disposition: Admitted As Inpatient Discharge Instructions Interventions: ED Discharge Assessment Last Done: 05/01/23 11:25
[2023-05-01 09:51] LABS: Adenovirus PCR Not Detected (NotDetected); Bordetella parapertussis PCR Not Detected (NotDetected); Bordetella pertussis PCR Not Detected (NotDetected); Chlamydia pneumoniae PCR Not Detected (NotDetected); Coronavirus 229E PCR Not Detected (NotDetected); Coronavirus CoV-2 (COVID19)PCR Not Detected (NotDetected); Coronavirus HKU1 PCR Not Detected (NotDetected); Coronavirus NL63 PCR Not Detected (NotDetected); Coronavirus OC43PCR Not Detected (NotDetected); Human Metapneumovirus PCR Not Detected (NotDetected); Influenza A PCR Not Detected (NotDetected); Influenza B PCR Not Detected (NotDetected); Mycoplasma pneumoniae PCR Not Detected (NotDetected); Parainfluenza Virus 1 PCR Not Detected (NotDetected); Parainfluenza Virus 2 PCR Not Detected (NotDetected); Parainfluenza Virus 3 PCR Not Detected (NotDetected); Parainfluenza Virus 4 PCR Not Detected (NotDetected); Respiratory Syncytial VirusPCR Not Detected (NotDetected); Rhinovirus/Enterovirus PCR Not Detected (NotDetected)
--- NOTE | 2023-05-01 09:55 | History & Physical Report ---
Date of Service May 01, 2023 Assessment & Plan (1) Hypoxia: Plan: Present to the ER with progressive shortness of breath/cough/sputum production and low grade fevers at home with hx asthma, recently completed steroid dose pack/augmentin last month, recently zpak prior to travel to [place]. No evidence for DVT, or history. No hypotension to suggest PE or pleuritic pain reported. Biofire negative SpO2 86% on arrival, placed on NC w/ saturations maintained. BNP 895 with CXR w/ cardiomegaly and mild edema noted Given Duoneb/Lasix 20mg IV in ER, supplemental O2 with reported improvement. Admit med/tele Suspect combination of CHF/asthma exacerbation/possible pneumonia given brown sputum reported BNP elevation to 895, mag 1.4 Monitor response to lasix/additional dosing if needed but will schedule 20mg IV for the morning in meantime ECHO Monitor I&O, daily weights Mag IV replacement ordered, monitor level on repeat. Methylprednisolone 40mg IV daily Duonebs Q4h, continue Advair/hospital equivalent Incentive spirometer Ceftriaxone/Azithromycin for pneumonia coverage Mucinex BID Sputum cx if able to produce Supplemental O2 to maintain sats Monitor response to lasix/additional dosing if needed Labs in AM (2) Pneumonia: Plan: possible, covering w/ Rocephin/Azithromycin/pulmonary toilet as above. Monitor sputum cx (3) Asthma exacerbation: Plan: tx w/ nebulizers as above, IV methylprednisolone daily rec outpt PFTs/escalation of his daily regimen as only on ADvair and per med rec is prn. especially in light of possible second exacerbation in 1-2 months (4) Pulmonary edema: Plan: monitor response to lasix/additional dose this evening pending output but otherwise ordered 20mg IV daily for AM CXR in AM (5) Atrial fibrillation: Plan: now permanent remains on eliquis -- did not take this morning but denied missing any prior doses. First dose NOW, continue 5mg BID Keep mag/K replete --> IV mag replacement as above (6) S/P CABG (coronary artery bypass graft): Plan: Hx CAD, CABG May 2013 Trop not elevated/denied CP ECHO ordered to [facility] [place] for worsening EF, prior ECHO January 2022 noting mildly reduced EF 40-45%, mild global hypokinesis of left ventricle, mild concentric LVH. Mild mitral regurgiation,mildly dilated ascending aorta No need to trend troponin unless patient w/ complaints of pain at present Monitor on telemetry/EKG w/ CP ordered (7) Type 2 diabetes mellitus: Plan: patient reports diet controlled, however prior A1c 7.3 in August last year. Will place orders for BSG AC/HS while inpatient, sliding scale. Glycemic consult as well given going to be placing on IV steroids for asthma exacerbation as above ?If is reports of constipation issues occassionally from gastroparesis from CM? Check A1c w/ AM labs, monitor BSGs Will need follow up discussions, likely benefit from at least starting PO metformin at dc if able to tolerate (8) Obstructive sleep apnea: Plan: reports does not use device at home suspect would benefit from such -- continued discussions in follow up (9) Allen's esophagus: Plan: continue PPI BID, first dose now (10) Hypercholesterolemia: Plan: continue home meds (11) Thoracic ascending aortic aneurysm: Plan: noted, followed by echo by Dr Landaverde Echo ordered as ordered for above (12) SOB (shortness of breath): Plan: multifactorial, suspect asthma exacerbation/pneumonia/hypoxia on admission biofire negative, abx/nebs/steroids/sputum cx as above, also checking ECHO given due/hx CAD/Afib. 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 History of Present Illness Primary Care Provider: Donal Willis MD 72yo male with PMHx significant for CAD (s/p CABG), Afib (on eliquis), LAURENCE (does not use device), HLD, DM II (diet controlled per patient), Lymphocytic colitis presented for shortness of breath and was found to be hypoxic to 86% on room air when he got here. Given Duoneb in ER and wheezing improved but still with rales, and provided lasix 20mg IV x 1 given not on anything outpatient. Seen in C9, at bedside. Seen by primary care in April for an asthma exacerbation and completed note with Augmentin and steroid dose pack. Recently traveled to [place], returning on Monday evening. Reports having had the cough starting prior to leaving. Tested himself for COVID x 2 and was negative. Completed Zpak Reports having low grade fevers at home 99-100F. Sputum production reported, brown in color. Discussed admission for possible pneumonia/asthma exacerbation but appears with possible CHF. Reporting poor PO intake/fullness. Does have some issues with constipation at baseline but denies any blood. No reported LE edema/swelling with his travel. No history of DVT/PE. Has not missed any doses of his eliquis, but reports not having taken his medications yet this morning. Will order eliquis/aspirin/cardizem/losartan now. DId report feeling slightly better than when he came in since Duoneb/IV lasix. Dscreased wheezing but still present. Currently on 3L NC to maintain saturations. Only typically uses Advair for his asthma, does not wear CPAP with his history of LAURENCE, and not on any medications for his diabetes and reports diet controlled. On PPI BID for hx barretts. He was hoping to avoid admission but notes a busy week after tomorrow morning. He is hopeful for discharge tomorrow morning. Discussed will plan for discharge as soon as stable/safe. ER Course: Biofire negative CBC w/ WBC 10.78 w/ L shift. Na 131/Chl 93, BUN/Cr 17/0.88. Mag low at 1.4. BNP elevated 895. CXR w/ cardiomegaly with mild interstitial pulmonary edema, possible mild R basilar opacity. Procal pending Lasix 20mg IV x 1, Duoneb, IV magnesium 2gm ordered. Ceftriaxone IV ordered. Allergies Allergy/AdvReac Type Severity Reaction Status Date / Time MARCELLO Inhibitors AdvReac Mild Cough Verified 05/01/23 10:10 Home Medications Medication Instructions Recorded Confirmed Type azelastine 137 mcg (0.1 %) nasal 2 spray intranasal DAILY PRN Nasal 10/08/18 05/01/23 History spray aerosol Congestion melatonin 10 mg tablet 10 mg PO HS PRN Sleep 10/08/18 05/01/23 History multivitamin 1 tab PO QAM 10/08/18 05/01/23 History omega 4-gip-dfg-fish oil 1,000 mg 1 cap PO QAM 10/08/18 05/01/23 History (120 mg-180 mg) capsule (Fish Oil) aspirin 81 mg tablet,delayed 81 mg PO QAM 02/28/22 05/01/23 History release (Adult Aspirin Regimen) diltiazem HCl 240 mg 240 mg PO QAM #90 caps 08/01/22 05/01/23 Rx capsule,extended release 24 hr apixaban 5 mg tablet 5 mg PO BID #180 tabs 09/02/22 05/01/23 Rx pantoprazole 40 mg tablet,delayed 40 mg PO BID #180 tabs 10/27/22 05/01/23 Rx release albuterol sulfate 90 mcg/actuation 2 puff inhalation QID PRN 11/17/22 05/01/23 Rx aerosol inhaler shortness of breath or wheezing #8.5 grams montelukast 10 mg tablet 10 mg PO PM #90 tabs 12/20/22 05/01/23 Rx losartan 100 1 tab PO QAM #90 tabs 01/03/23 05/01/23 Rx mg-hydrochlorothiazide 25 mg tablet amoxicillin 500 mg tablet 2,000 mg PO ONCE #4 tabs 01/04/23 05/01/23 Rx zolpidem 10 mg tablet 10 mg PO HS PRN Sleep #30 tabs 01/23/23 05/01/23 Rx allopurinol 300 mg tablet 300 mg PO QAM #90 tabs 02/02/23 05/01/23 Rx alprazolam 0.25 mg tablet 0.25 - 0.5 mg PO HS #90 tabs 02/21/23 05/01/23 Rx fluticasone 500 mcg-salmeterol 50 1 inh inhalation BID PRN cough, 03/06/23 05/01/23 Rx mcg/dose blistr powdr for wheeze #60 ea inhalation finasteride 5 mg tablet 5 mg PO QAM 05/01/23 05/01/23 History simvastatin 40 mg tablet 40 mg PO HS 05/01/23 05/01/23 History Past Med/Surg History Medical History Asthma Atrial fibrillation intermittent - denies current issues; currently wearing an event monitor to see if "he still has it" will be removed week of 01/09/23-- follows w/ Dr Landaverde, last visit 12/2022 Barretts esophagus no current issue - had ablation of esophagus BPH (benign prostatic hyperplasia) CAD (coronary artery disease) s/p CABG x 3 (2012) Chronic back pain Conductive hearing loss Degenerative disc disease GERD (gastroesophageal reflux disease) History of gastric ulcer History of respiratory tract infection 03/2023 was treated w/ antibiotics and medrol dose pack, has mild lingering congestion and slight cough Hx of gout Hyperlipidemia well controlled Hypertension well controlled Insomnia Lumbar disc disorder with myelopathy Osteoarthritis Sleep apnea NO LONGER USING DEVICE Spinal stenosis Thoracic ascending aortic aneurysm Mildly dilated ascending aorta (4.1cm) per 12/2020 echo, "stable" per cardiology Type 2 diabetes mellitus Borderline, diet controlled - changed diet and no problems Surgical History History of appendectomy History of cardiac cath 2013 ([facility]) > no stents History of carpal tunnel surgery of right wrist History of colonoscopy History of esophagogastroduodenoscopy (EGD) History of lumbar discectomy x2 L3-L4 History of prior ablation treatment Radiofrequency ablation of esophagus (done at [facility]) for precancerous Allen's Esophagus History of tonsillectomy History of total hip arthroplasty B/L left 05/17/2021: SAB at L3-L4, 1 attempt. No issues per anesthesia postop progress note. 06/03/2021 irrigation and debridement of left hip: LMA#5, atraumatic. No issues per anesthesia postop progress note. History of total replacement of left shoulder joint History of wisdom tooth extraction Nausea and vomiting after administration of anesthetic agent especially morphine S/P CABG x 2013 ([facility]) Status post medial meniscus repair Left knee Status post right foot surgery Family History Father Family history of diabetes mellitus Myocardial infarction Stroke Brother Family history of esophageal cancer Stroke Son Coronary heart disease Other Diabetes Heart disease Hypertension No family history of adverse response to anesthesia Social History Smoking Status: Never smoker Cigarettes Per Day: QUIT 32 YRS AGO; Second Hand Exposure: No; Do You Dip or Chew Tobacco: No; Hx Alcohol Use: Yes Alcohol type: wine Hx Substance Use: No Preferred Language: Setswana Communication Ability: Effective Zinc Plate Cutter Required: No Beliefs That Will Affect Care: None marital status: Current Living Situation: Spouse Feels Safe at Home: Yes Assistive Devices: Glasses Review of Systems Review of Systems: All systems reviewed & are unremarkable except as noted in HPI & below Physical Exam Physical Exam: General: WD/WN male sitting up in bed, mild tachypnea moving around in bed but no acute distress, at bedside HEENT: head normocephalic, atraumatic, mmm, trachea midline Resp: diminished in the bases, rales to R base, upper anterior expiratory wheezing, mild tachypnea RR 22-24, on 3L NC CV: irregularly irregular, +systolic murmur, trace LE edema, calves nontender, pulses palpable GI: +BS, soft, slight distension, nontender : no lyons MSK/Neuro: no focal deficits/no slurred speech, follows commands Psych: AOx3, cooperative with exam Results & Data Results & Data Vital Signs (Past 12 Hours) Vital Signs Temp Pulse Resp BP Pulse Ox O2 Del Method O2 Flow Rate 05/01/23 09:10 99 H 20 154/120 H 95 05/01/23 08:22 86 L Nasal Cannula 0 05/01/23 08:16 115 H 05/01/23 08:06 92 Nasal Cannula 3 05/01/23 08:05 29 H 86 L Room Air 05/01/23 07:58 36.6 C 111 H 26 H 159/104 H 88 L Room Air Laboratory Results 05/01/23 05/01/23 05/01/23 Range/Units 09:56 08:55 08:10 WBC (4.8-10.8) K/ul RBC (4.70-6.10) M/uL Hgb (14.0-18.0) g/dl Hct (42.0-52.0) % MCV (80.0-100.0) fL MCH (25.0-34.0) pg MCHC (32.0-36.0) g/dL RDW Std Deviation (36.4-46.3) fL RDW Coeff of Herber[place] (11.5-14.5) % Plt Count (130-400) K/uL MPV (9.4-12.4) fL Immature Gran % (Auto) % Neut % (Auto) % Lymph % (Auto) % [place] % (Auto) % Eos % (Auto) % Baso % (Auto) % Neut # (Auto) (1.40-6.50) K/uL Lymph # (Auto) (1.20-3.40) K/uL [place] # (Auto) (0.11-0.59) K/uL Eos # (Auto) (0.00-0.50) K/uL Baso # (Auto) (0.00-0.20) K/uL Immature Gran # (Auto) (0.01-0.20) K/uL Absolute Nucleated RBC (0.00-0.12) K/uL Nucleated RBC % (auto) % Sodium (136-145) mmol/L Potassium (3.5-5.1) mmol/L Chloride (98-107) mmol/L Carbon Dioxide (21-32) mmol/L Anion Gap (3-11) BUN (6-23) mg/dl Creatinine (0.6-1.4) mg/dl Est Cr Clr Drug Dosing ml/min Est GFR ( Amer) ml/min Est GFR (Non-Af Amer) ml/min BUN/Creatinine Ratio (10-20) Glucose (70-99(Fasting)) mg/dl Calcium (8.6-10.3) mg/dl Magnesium (1.7-2.4) mg/dl Total Bilirubin (0.2-1.0) mg/dl AST (13-39) U/L ALT (7-52) U/L Alkaline Phosphatase (34-104) U/L Troponin I High Sens (0-20) pg/ml B-Natriuretic Peptide 895 H (0-100) pg/ml Total Protein (6.0-8.3) gm/dl Albumin (3.4-5.0) gm/dl Globulin (2.5-4.0) gm/dl Albumin/Globulin Ratio (0.9-2) TSH Pending Adenovirus (PCR) Not Detected (NotDetected) B. pertussis DNA (PCR) Not Detected (NotDetected) B.parapertussis DNA PCR Not Detected (NotDetected) C. pneumoniae DNA (PCR) Not Detected (NotDetected) Coronavirus OC43 (PCR) Not Detected (NotDetected) Coronavirus HKU1 (PCR) Not Detected (NotDetected) Coronavirus 229E (PCR) Not Detected (NotDetected) SARS-CoV-2 (PCR) Not Detected (NotDetected) Coronavirus NL63 (PCR) Not Detected (NotDetected) Human Metapneumovir PCR Not Detected (NotDetected) Influenza Type A (PCR) Not Detected (NotDetected) Influenza Type B (PCR) Not Detected (NotDetected) M. pneumoniae (PCR) Not Detected (NotDetected) Parainfluenza 1 (PCR) Not Detected (NotDetected) Parainfluenza 2 (PCR) Not Detected (NotDetected) Parainfluenza 3 (PCR) Not Detected (NotDetected) Parainfluenza 4 (PCR) Not Detected (NotDetected) RSV (PCR) Not Detected (NotDetected) Entero/Rhino (PCR) Not Detected (NotDetected) 05/01/23 05/01/23 Range/Units 08:10 08:10 WBC 10.78 (4.8-10.8) K/ul RBC 3.67 L (4.70-6.10) M/uL Hgb 11.9 L (14.0-18.0) g/dl Hct 35.6 L (42.0-52.0) % MCV 97.0 (80.0-100.0) fL MCH 32.4 (25.0-34.0) pg MCHC 33.4 (32.0-36.0) g/dL RDW Std Deviation 52.1 H (36.4-46.3) fL RDW Coeff of Herberth 14.6 H (11.5-14.5) % Plt Count 333 (130-400) K/uL MPV 10.3 (9.4-12.4) fL Immature Gran % (Auto) 1.5 % Neut % (Auto) 75.0 % Lymph % (Auto) 13.5 % [place] % (Auto) 8.0 % Eos % (Auto) 1.3 % Baso % (Auto) 0.7 % Neut # (Auto) 8.09 H (1.40-6.50) K/uL Lymph # (Auto) 1.45 (1.20-3.40) K/uL [place] # (Auto) 0.86 H (0.11-0.59) K/uL Eos # (Auto) 0.14 (0.00-0.50) K/uL Baso # (Auto) 0.08 (0.00-0.20) K/uL Immature Gran # (Auto) 0.16 (0.01-0.20) K/uL Absolute Nucleated RBC 0.03 (0.00-0.12) K/uL Nucleated RBC % (auto) 0.3 % Sodium 131 L (136-145) mmol/L Potassium 4.1 (3.5-5.1) mmol/L Chloride 93 L (98-107) mmol/L Carbon Dioxide 30 (21-32) mmol/L Anion Gap 8 (3-11) BUN 17 (6-23) mg/dl Creatinine 0.88 (0.6-1.4) mg/dl Est Cr Clr Drug Dosing 95.4 ml/min Est GFR ( Amer) 98.1 ml/min Est GFR (Non-Af Amer) 84.6 ml/min BUN/Creatinine Ratio 19.3 (10-20) Glucose 230 H (70-99(Fasting)) mg/dl Calcium 9.7 (8.6-10.3) mg/dl Magnesium 1.4 L (1.7-2.4) mg/dl Total Bilirubin 1.2 H (0.2-1.0) mg/dl AST 24 (13-39) U/L ALT 22 (7-52) U/L Alkaline Phosphatase 70 (34-104) U/L Troponin I High Sens 15.8 (0-20) pg/ml B-Natriuretic Peptide (0-100) pg/ml Total Protein 7.1 (6.0-8.3) gm/dl Albumin 4.1 (3.4-5.0) gm/dl Globulin 3.0 (2.5-4.0) gm/dl Albumin/Globulin Ratio 1.4 (0.9-2) TSH Adenovirus (PCR) (NotDetected) B. pertussis DNA (PCR) (NotDetected) B.parapertussis DNA PCR (NotDetected) C. pneumoniae DNA (PCR) (NotDetected) Coronavirus OC43 (PCR) (NotDetected) Coronavirus HKU1 (PCR) (NotDetected) Coronavirus 229E (PCR) (NotDetected) SARS-CoV-2 (PCR) (NotDetected) Coronavirus NL63 (PCR) (NotDetected) Human Metapneumovir PCR (NotDetected) Influenza Type A (PCR) (NotDetected) Influenza Type B (PCR) (NotDetected) M. pneumoniae (PCR) (NotDetected) Parainfluenza 1 (PCR) (NotDetected) Parainfluenza 2 (PCR) (NotDetected) Parainfluenza 3 (PCR) (NotDetected) Parainfluenza 4 (PCR) (NotDetected) RSV (PCR) (NotDetected) Entero/Rhino (PCR) (NotDetected) Diagnostic Findings Chest X-Ray 05/01/23 08:43 XR chest 1V portable CLINICAL HISTORY: Shortness of breath. Cough. COMPARISON STUDY: Chest CT September 28, 2018. Chest radiograph March 09, 2023. FINDINGS: Median sternotomy wires and left shoulder arthroplasty are incidentally noted. There is no pneumothorax. No pleural effusion is identified. Mild right basilar opacity is present. There is mild interstitial thickening. IMPRESSION: 1. Cardiomegaly with mild interstitial pulmonary edema. 2. Possible mild right basilar opacity. ACT 112: Negative or not required by law. Electronically signed by: Donny Marley M.D. 05/01/2023 9:23 AM Supervising Physician Co-Signing Physician Notes I personally saw and examined the patient. I verified all bella points and agree with Jamia Menjivar PA-C with the following exceptions and/or additions: 72 year old male presents to the ER with 1 week of coughing brown sputum, respiratory distress, shortness of breath progressively getting worse. Prior asthma exacerbation in March requiring steroids. O/E A&Ox3, HS irregular rhythm, increased rate, no murmurs, Using accessory muscles, speaking in full sentences, Chest right posterior coarse crackles, mild expiratory wheezing, Abdo SNT, BS normal A/P RLL pneumonia - ceftriaxone + azithromycin, coarse crackles on exam, brown sputum, consolidation on CXR Asthma exacerbation - Solu-Medrol 40mg IV daily (suspect will just need a short course), formoterol/budesonide NEBs Pulmonary edema - mild, start Lasix 20mg IV daily, monitor I&Os, low Na diet, TTE to assess for cardiomyopathy Acute respiratory failure on hypoxia - secondary to above, aim O2 sats > 90%, flutter valve, incentive spirometry, guaifenesin Otherwise as above PG Care Time/CCT Total # of Minutes Spent Total Time Spent with Patient: Total time spent is greater than 50% in coordination of care (as documented) at patient's floor/unit and/or counseling patient: Coding Level of Care Code 21466 INT INP/OBS CARE 3/75MIN Diagnoses Hypoxia R09.02 Pneumonia J18.9 Asthma exacerbation J45.901 Pulmonary edema J81.1 Atrial fibrillation I48.91 S/P CABG (coronary artery bypass graft) Z95.1 Type 2 diabetes mellitus E11.9 Obstructive sleep apnea G47.33 Allen's esophagus K22.70 Hypercholesterolemia E78.00 Thoracic ascending aortic aneurysm I71.2 SOB (shortness of breath) R06.02 Cough R05.9 Acute respiratory failure with hypoxia J96.01
[2023-05-01] MEDS ORDERED: MAGNESIUM SULFATE / D5W 1 GM/100 ML BAG IV SCH (10:00)
[2023-05-01] MEDS ORDERED: ASPIRIN 81 MG ECTAB PO STA (10:23)
[2023-05-01] MEDS ORDERED: PANTOprazole 40 MG TAB PO STA (10:23)
[2023-05-01] MEDS: MAGNESIUM SULFATE / D5W 1 GM/100 ML BAG IV SCH ×2 (10:26→12:05)
[2023-05-01] MEDS ORDERED: AZITHROMYCIN 500 MG in DEXTROSE 5% 250 ML IV ONE (10:30)
[2023-05-01] MEDS ORDERED: LOSARTAN POTASSIUM 50 MG TAB PO ONE (10:45)
[2023-05-01] MEDS ORDERED: APIXABAN 5 MG TABLET PO ONE (10:45)
[2023-05-01] MEDS ORDERED: dilTIAZem HCL 240 MG CAPCR PO ONE (10:45)
[2023-05-01] MEDS ORDERED: ACETAMINOPHEN 325 MG TAB PO PRN (13:14)
[2023-05-01] MEDS ORDERED: GLUCOSE 10 TAB/TUBE PO PRN (13:14)
[2023-05-01] MEDS ORDERED: ZOLPIDEM TARTRATE 10 MG TAB PO PRN (13:14)
[2023-05-01] MEDS ORDERED: GLUCAGON FOR INJ 1 MG VIAL SQ PRN (13:14)
[2023-05-01] MEDS ORDERED: ONDANSETRON INJ 2 MG/ML 2 ML VIAL IV PRN (13:14)
[2023-05-01] MEDS ORDERED: POLYETHYLENE (MIRALAX) 17 GM PACK PO PRN (13:14)
[2023-05-01] MEDS ORDERED: GLUCOSE 40% GEL 15 GM TUBE PO PRN (13:14)
[2023-05-01] MEDS ORDERED: PHARMACY GLYCEMIC MGMT CONSULT PRN (13:14)
[2023-05-01] MEDS ORDERED: DEXTROSE 50% 50 ML SYRINGE IV PRN (13:14)
[2023-05-01] MEDS ORDERED: CARBOHYDRATES FOR HYPOGLYCEMIA PO PRN (13:14)
[2023-05-01] MEDS ORDERED: ALBUTEROL HFA 8 GM INHALER INH PRN (13:14)
[2023-05-01] MEDS ORDERED: MAGNESIUM SULFATE / D5W 1 GM/100 ML BAG IV ONE (13:30)
[2023-05-01] MEDS ORDERED: LANTUS PER UNIT CHARGE SC ONE (13:30)
[2023-05-01] MEDS ORDERED: MELATONIN 3 MG TAB PO PRN (13:31)
--- NOTE | 2023-05-01 14:05 | Pharmacy Report ---
Pharmacy Glycemic Short Note 2 - Date of Service May 01, 2023 - Glycemic Short BSG Results (Last 24 hours): 05/01/23 08:10 Glucose 230 H OUTPATIENT ANTIDIABETIC REGIMEN: * n/a HbA1c: 7.3% (08/23/22), recheck ordered for tomorrow 05/02/23 ASSESSMENT: * CARLINE is a 72 year old male who presents to ED with persistent cough and shortness of breath * SpO2 86% on arrival, chest x-ray shows cardiomegaly, elevated BNP * Symptoms believed to be result of some combination of CHF, asthma exacerbation, and possible pneumonia * BSG on initial lab check of 230 mg/dL * Ordered methylprednisolone 40 mg IV daily * Patient on no antidiabetic medications at home, but A1c is elevated * Will give conservative initial basal dose with more aggressive Novolog parameters + overnight checks PLAN FOR INPATIENT GLYCEMIC CONTROL: * Basal insulin * Lantus 20 units SC x 1 now * Reassess basal in AM * Bolus insulin * NovoLog per scale ACHS or Q6hrs while NPO * Goal Range: Low 110 mg/dL - High 140 mg/dL * Correction Factor: 20 mg/dL/unit * Nutritional / Prandial insulin per carb ratio of 1 unit per 7 grams CHO consumed * 00,04 checks this evening with same parameters
[2023-05-01] MEDS: ALBUT/IPRATROP 3MG/0.5MG NEB 3 ML VIAL NEB SCH ×4 (14:39→23:18)
[2023-05-01] MEDS: methylPREDNISolone 40 MG in SYRINGE 0 ML IV SCH (14:56)
[2023-05-01] MEDS: INSULIN ASPART PER UNIT CHARGE SC SCH ×3 (14:57→21:06)
--- NOTE | 2023-05-01 17:13 | XCELERA ---
[id number] [id number]
--- NOTE | 2023-05-01 19:02 | Communication Note ---
Date of Service: May 01, 2023 ECHO w/ worsened EF, RV dilation/pulmonary HTN, mod-severe MR Likely benefit from further medical management with possible switch from Cardizem -> metoprolol succinate / carvedilol and switch losartan -> Entresto. Possible BiV if failed medical optimization. Also would benefit from treatment for his sleep apnea as well as diabetes (not on medications, consideration for SGLT-2 in addition to medication regimen) Cardiology consultation placed, messaged Dr Dee regarding consultation for the morning. CHF clinic referral
[2023-05-01] MEDS ORDERED: FUROSEMIDE INJ 20 MG/2 ML VIAL IV STA (19:13)
[2023-05-01] MEDS: guaiFENesin 600 MG TABCR PO SCH (19:53)
[2023-05-01] MEDS: PANTOprazole 40 MG TAB PO SCH (19:54)
[2023-05-01] MEDS: APIXABAN 5 MG TABLET PO SCH (19:54)
[2023-05-01] MEDS: BUDESONIDE 0.5 MG/2 ML VIAL (PULMICORT) NEB SCH (20:35)
[2023-05-01] MEDS: FORMOTEROL 20 MCG/2 ML VIAL NEB SCH (20:35)
[2023-05-01] MEDS ORDERED: SIMVASTATIN 40 MG TAB PO SCH (21:00)
[2023-05-01] MEDS ORDERED: MONTELUKAST SODIUM 10 MG TABLET PO SCH (21:00)
[2023-05-01] MEDS ORDERED: ALPRAZolam 0.25 MG TABLET PO SCH (21:00)
[2023-05-02] MEDS: INSULIN ASPART PER UNIT CHARGE SC SCH ×4 (00:03→13:10)
[2023-05-02] MEDS: ALBUT/IPRATROP 3MG/0.5MG NEB 3 ML VIAL NEB SCH ×2 (04:18→07:19)
--- NOTE | 2023-05-02 06:07 | Electrocardiogram Report ---
Test Reason : Blood Pressure : / mmHG Vent. Rate : 104 BPM Atrial Rate : 107 BPM P-R Int : 000 ms QRS Dur : 160 ms QT Int : 348 ms P-R-T Axes : 000 -30 120 degrees QTc Int : 457 ms Atrial fibrillation with rapid ventricular response with premature ventricular or aberrantly conducte d complexes Left axis deviation Left bundle branch block Abnormal ECG When compared with ECG of 12-APR-2021 11:27, Atrial fibrillation has replaced Sinus rhythm Confirmed by Donell Dee ([id number]) on 05/02/2023 6:07:34 AM Referred By: REFERRED SELF Confirmed By:Donell Dee
[2023-05-02] MEDS: BUDESONIDE 0.5 MG/2 ML VIAL (PULMICORT) NEB SCH (07:19)
[2023-05-02] MEDS: FORMOTEROL 20 MCG/2 ML VIAL NEB SCH (07:19)
[2023-05-02 07:49] LABS: Hematocrit (blood only) 36.6 % (42.0-52.0); Hemoglobin 12.2 g/dl (14.0-18.0); Mean Corpuscular Hemoglobin 32.4 pg (25.0-34.0); Mean Corpuscular Hgb Conc 33.3 g/dL (32.0-36.0); Mean Corpuscular Volume 97.1 fL (80.0-100.0); Mean Platelet Volume 10.3 fL (9.4-12.4); Nucleated RBC # (auto) 0.03 K/uL (0.00-0.12); Nucleated RBC % (auto) 0.2 %; Platelet Count 347 K/uL (130-400); RDW Coefficient of Variation 14.5 % (11.5-14.5); RDW Standard Deviation 51.4 fL (36.4-46.3); Red Blood Count 3.77 M/uL (4.70-6.10); White Blood Count 12.04 K/ul (4.8-10.8)
--- NOTE | 2023-05-02 08:06 | Hospitalist Progress Note ---
Date of Service May 02, 2023 Assessment & Plan (1) Acute respiratory failure with hypoxia: Plan: Present to the ER with progressive shortness of breath/cough/sputum production and low grade fevers at home with Hx asthma Multifactorial causes with likely asthma exacerbation, RLL PNA, pulmonary edema and HF exacerbation CXR with RIGHT basilar opacity, mild interstitial pulmonary edema No evidence for DVT, no hypotension to suggest PE or pleuritic pain reported Biofire negative For PNA: continue ceftriaxone/azithromycin For possible asthma exacerbation: methylprednisolone transitioned to oral prednisone 40mg daily, for short course therapy, continue Duonebs q6h and Pulmicort Respules, continue Mucinex For likely ischemic cardiomyopathy and pulmonary edema: Cont Lasix 40mg IV daily, Cardiology consult for ongoing evaluation of cardiomyopathy, CHF clinic referral Wean oxygen as tolerated, currently on RA at rest but will need to evaluate for hypoxia/dyspnea with activity (2) Pneumonia: Plan: Possible, covering w/ Rocephin/Azithromycin/pulmonary toilet as above. Monitor sputum cx (3) Asthma exacerbation: Plan: Tx w/ nebulizers as above, oral prednisone daily Continue (4) Acute HFrEF (heart failure with reduced ejection fraction): Plan: CXR on admission with evidence of mild pulmonary edema Echo 05/01/23 with mildly dilated LV with severely reduced EF 25-30%, severe hypokinesis to akinesis of the inferior wall, otherwise global hypokinesis Monitor response to Lasix, currently ordered Lasix 40mg IV daily Cardiology consult appreciated, suspect ischemic cardiomyopathy (5) Atrial fibrillation: Plan: Now permanent Remains on Eliquis, continue Keep Mg/K repleted (6) S/P CABG (coronary artery bypass graft): Plan: Hx CAD with CABG 3 in May 2013 Trop not elevated/denied CP ECHO ordered to eval for worsening EF shows decline in LV function with EF 25- 30% since last study in 01/2022, noted progression of MR to mod-severe Cardiology consulted for possible ischemic cardiomyopathy, CHF clinic consult (7) Type 2 diabetes mellitus: Plan: Patient reports diet controlled, however prior A1c 7.3 in August last year Glycemic consult appreciated given steroids for asthma exacerbation as above A1c pending, _ Will need follow up discussions, likely benefit from DM2 medication on discharge (8) Obstructive sleep apnea: Plan: Reports does not use device at home Would benefit from such -- continued discussions in follow up (9) Allen's esophagus: Plan: Continue PPI BID (10) Hypercholesterolemia: Plan: Continue home meds (11) Thoracic ascending aortic aneurysm: Plan: Noted, followed by Echo by Dr Landaverde Echo ordered as above Plan Anticipate patient will require continued hospitalization today given new findings on Echocardiogram and need for Cardiology evaluation Friend of lisa, [employer] Director of [facility] Admission and Anticipated Discharge Date Admission Date: May 01, 2023 Results & Data Results & Data Vital Signs (Past 12 Hours) Vital Signs Temp Pulse Pulse Resp BP BP Pulse Ox 05/02/23 07:44 95 H 05/02/23 07:18 36.6 C 92 H 18 145/115 H 92 05/02/23 04:17 36.5 C 90 18 148/85 H 91 05/01/23 23:00 104 H 05/02/23 00:04 36.5 C 105 H 18 130/73 90 05/01/23 21:19 05/01/23 20:39 97 H 18 93 O2 Del Method 05/02/23 07:44 05/02/23 07:18 Room Air 05/02/23 04:17 Room Air 05/01/23 23:00 05/02/23 00:04 Room Air 05/01/23 21:19 Room Air 05/01/23 20:39 Room Air PG Care Time/CCT Total # of Minutes Spent Total Time Spent with Patient: Total time spent is greater than 50% in coordination of care (as documented) at patient's floor/unit and/or counseling patient: Coding Level of Care Code 22304 SUB INP/OBS CARE 3/50MIN Diagnoses Acute respiratory failure with hypoxia J96.01 Pneumonia J18.9 Asthma exacerbation J45.901 Acute HFrEF (heart failure with reduced ejection fraction) I50.21 Atrial fibrillation I48.91 S/P CABG (coronary artery bypass graft) Z95.1 Type 2 diabetes mellitus E11.9 Obstructive sleep apnea G47.33 Allen's esophagus K22.70 Hypercholesterolemia E78.00 Thoracic ascending aortic aneurysm I71.2
[2023-05-02 08:08] LABS: BUN Creatinine Ratio 22.4 (10-20); Calcium 9.8 mg/dl (8.6-10.3); Est GFR (African American) 99.5 ml/min; Est GFR (Non-African American) 85.8 ml/min; Magnesium 1.9 mg/dl (1.7-2.4); Potassium 3.9 mmol/L (3.5-5.1)
[2023-05-02] MEDS: methylPREDNISolone 40 MG in SYRINGE 0 ML IV SCH (08:08)
[2023-05-02] MEDS: PANTOprazole 40 MG TAB PO SCH (08:09)
[2023-05-02] MEDS: APIXABAN 5 MG TABLET PO SCH (08:09)
[2023-05-02] MEDS: guaiFENesin 600 MG TABCR PO SCH (08:09)
[2023-05-02 08:12] LABS: Estimated Average Glucose 194 mg/dl; Hemoglobin A1C 8.4 % (4.5-5.6)
[2023-05-02 08:27] LABS: Ferritin 44.3 ng/ml (8-388); Folate (Folic Acid),Ser orPlas > 22.30 ng/ml (>5.38)
[2023-05-02 08:28] LABS: Vitamin B12 1226 pg/ml (180-914)
[2023-05-02] MEDS ORDERED: ASPIRIN 81 MG ECTAB PO SCH (09:00)
[2023-05-02] MEDS ORDERED: AZITHROMYCIN 250 MG in DEXTROSE 5% 250 ML IV SCH (09:00)
[2023-05-02] MEDS ORDERED: METOPROLOL SUCC 50MG EXT REL TAB PO SCH (09:00)
[2023-05-02] MEDS ORDERED: hydroCHLOROthiazide 25 MG TAB PO SCH (09:00)
[2023-05-02] MEDS ORDERED: AZITHROMYCIN 250 MG TAB PO SCH (09:00)
[2023-05-02] MEDS ORDERED: OMEGA-3 (PURIFIED FISH OIL) 1 GM CAP PO SCH (09:00)
[2023-05-02] MEDS ORDERED: MULTIVITAMIN TAB PO SCH (09:00)
[2023-05-02] MEDS ORDERED: FUROSEMIDE INJ 20 MG/2 ML VIAL IV SCH ×2 (09:00)
[2023-05-02] MEDS ORDERED: LOSARTAN POTASSIUM 50 MG TAB PO SCH (09:00)
[2023-05-02] MEDS ORDERED: LANTUS PER UNIT CHARGE SC SCH ×2 (09:00→21:00)
[2023-05-02] MEDS ORDERED: allopurinoL 300 MG TAB PO SCH (09:00)
[2023-05-02] MEDS ORDERED: cefTRIAXone SODIUM 2,000 MG in DEXTROSE 5% 50 ML IV SCH (09:00)
[2023-05-02] MEDS ORDERED: dilTIAZem HCL 240 MG CAPCR PO SCH ×2 (09:00)
[2023-05-02] MEDS ORDERED: FINASTERIDE 5 MG TAB PO SCH (09:00)
--- NOTE | 2023-05-02 09:01 | Cardiology Consultation ---
Date of Consultation May 02, 2023 Assessment & Plan (1) Acute HFrEF (heart failure with reduced ejection fraction): (2) Cardiomyopathy: (3) Coronary artery disease, occlusive: (4) S/P CABG (coronary artery bypass graft): (5) Atrial fibrillation: (6) Hypercholesterolemia: (7) Mitral regurgitation: (8) Pulmonary hypertension: (9) Thoracic ascending aortic aneurysm: (10) Hypertension: Plan ASSESSMENT/PLAN: 1. Acute heart failure with reduced EF: Much improved clinically. Was class III symptoms on presentation. Still mildly hypervolemic but very much wishes to go home. Would continue Lasix 40 mg once daily on discharge. Agree with metoprolol succinate. Replace losartan with mid dose Entresto. Repeat BMP in approximately 2 days. Would also recommend starting spironolactone and SGLT2 inhibitor. These medications were not started during this hospital stay as he plans on being discharged today and avoiding the initiation of multiple new medications on the same day. These medications will be initiated if appropriate, in the outpatient setting soon. Discussed the importance of low- sodium diet, less than 2000 mg daily. Recommended daily weights and to record them and bring to his upcoming outpatient appointment. 2. Cardiomyopathy: LV systolic function is now severely reduced. Given history of CABG 10 years ago, recommend nonurgent cardiac catheterization. He received Eliquis today and therefore, not pursued in a nonemergent setting. Otherwise, initiate and titrate heart failure therapies and repeat echo in the outpatient setting after on max tolerated doses for 3 months, if not found to be ischemic in origin. Then, would qualify for biventricular ICD if LV systolic function remains significantly reduced. This was discussed with him today. 3. CAD s/p CABG x 3: No angina but worsening heart failure symptoms prompting presentation as above. Discussed ischemic evaluation as above. Beta-ashley initiated during this hospital stay. Most recent LDL well controlled. Continue statin therapy. 4. Atrial fibrillation: Described as paroxysmal in the past but persistent/permanent with A-fib throughout a 30-day event monitor several months ago. Continue anticoagulation for stroke risk reduction. Monitor blood counts and renal function. Diltiazem discontinued during this hospital stay given HFrEF. Continue beta-ashley for rate control strategy and could consider rhythm control in the future if heart failure difficult to manage. 5. Mitral regurgitation: Appeared more significant on echo during this hospital stay. Discussed with him. May improve in appearance following diuresis. Repeat echo as an outpatient once optimized and if still significant, could consider transesophageal echo. To be followed by his primary dental professional. 6. Hypertension: Blood pressure normotensive to mildly hypertensive. Adjusting several medications as above, which should also hopefully improve blood pressure management. 7. Dyslipidemia: Continue statin therapy. Most recent LDL was well controlled. 8. Pulmonary hypertension: Likely due to hypervolemic state on presentation. This can be reevaluated with repeat echo in the outpatient setting. 9. Dilated ascending aorta: Recommend annual surveillance. Avoid strenuous lifting for which this Valsalva maneuver is required. Recommend beta-ashley. 10. Disposition: Patient care discussed with Dr. Mansfield of the hospitalist service. Recommended heart failure program and patient was seen as well by Paola Downing to introduce to program. Patient care discussed with Ms. Downing. Recommend close follow-up with Dr. Landaverde, his primary dental professional. Highly complex medical issues. Today's visit was 78 minutes in duration, which includes 49 minutes of [id number] time, spent counseling patient coordinating care. 29 minutes spent reviewing multiple records, reviewing images, discussing with other providers as noted, and completing documentation. Thank you for allowing me to participate in the care of your patient. Please call for any other questions or concerns. Sincerely, Daniel Dee M.D. History of Present Illness Reason for Consultation: CHF Requesting Physician: Otto Attending Physician: Renea Lazar, DO History of Present Illness Mr. Batres is a very pleasant 72-year-old gentleman with a history significant for CAD s/p CABG x 3 (2012), cardiomyopathy, type 2 diabetes, atrial fibrillation, sleep apnea, hypertension, dyslipidemia, Allen's esophagus, and thoracic ascending aortic aneurysm. His primary dental professional is Dr. Landaverde. He was admitted on 05/01/2023 with hypoxia and was felt by admitting service to have a combination of CHF, asthma exacerbation, and possible pneumonia. He was given intravenous Lasix 20 mg IV x2 and then 40 mg IV today. He was also placed on ceftriaxone and azithromycin. He underwent an echocardiogram which demonstrated severely reduced LV systolic function and moderate to severe MR. He states that he had been short of breath for more than 2 or 3 months. He had not noted any edema and checks his weight approximately twice per week. He has not noted any significant weight gain. He recently traveled to [place] and felt congested in his chest to the point where he was unable to play golf. He had dyspnea on exertion even walking room to room. He does not add salt to food but does not maintain a low-sodium diet. He chronically sleeps with the head of his bed elevated secondary to acid reflux and has not noted orthopnea. He denies syncope, near syncope, palpitations, melena, hematochezia, hematuria, or other bleeding. During this hospital stay, he had been collecting urine until today for measurement. In regards to asthma, he states he was diagnosed after back surgery in the past. He had issues breathing for 7 or 8 months and was placed on prednisone. He otherwise has not had any significant asthma issues. While here, he feels much better after diuresis. He was able to ambulate in the hallway without dyspnea on exertion. He very much would like to be discharged today due to a very important business meeting tomorrow. Review of systems: As above. Review of systems otherwise negative/unremarkable. Family history: Positive for CAD. Son at 36 with mitral valve prolapse and cardiac arrest. Social history: He quit smoking at the age of 38. He consumes 2 glasses of wine per day and sometimes more. He denies drug abuse. He lives at home with his . Had 2 sons and 1 daughter. 1 son at the age of 36 from cardiac arrest and had a history of mitral valve prolapse. 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 He was unaccompanied today. Allergies Allergy/AdvReac Type Severity Reaction Status Date / Time MARCELLO Inhibitors AdvReac Mild Cough Verified 05/01/23 10:10 Home Medications Medication Instructions Recorded Confirmed Type azelastine 137 mcg (0.1 %) nasal 2 spray intranasal DAILY PRN Nasal 10/08/18 05/01/23 History spray aerosol Congestion melatonin 10 mg tablet 10 mg PO HS PRN Sleep 10/08/18 05/01/23 History multivitamin 1 tab PO QAM 10/08/18 05/01/23 History omega 3-iye-fkc-fish oil 1,000 mg 1 cap PO QAM 10/08/18 05/01/23 History (120 mg-180 mg) capsule (Fish Oil) aspirin 81 mg tablet,delayed 81 mg PO QAM 02/28/22 05/01/23 History release (Adult Aspirin Regimen) diltiazem HCl 240 mg 240 mg PO QAM #90 caps 08/01/22 05/01/23 Rx capsule,extended release 24 hr apixaban 5 mg tablet 5 mg PO BID #180 tabs 09/02/22 05/01/23 Rx pantoprazole 40 mg tablet,delayed 40 mg PO BID #180 tabs 10/27/22 05/01/23 Rx release albuterol sulfate 90 mcg/actuation 2 puff inhalation QID PRN 11/17/22 05/01/23 Rx aerosol inhaler shortness of breath or wheezing #8.5 grams montelukast 10 mg tablet 10 mg PO PM #90 tabs 12/20/22 05/01/23 Rx losartan 100 1 tab PO QAM #90 tabs 01/03/23 05/01/23 Rx mg-hydrochlorothiazide 25 mg tablet amoxicillin 500 mg tablet 2,000 mg PO ONCE #4 tabs 01/04/23 05/01/23 Rx zolpidem 10 mg tablet 10 mg PO HS PRN Sleep #30 tabs 01/23/23 05/01/23 Rx allopurinol 300 mg tablet 300 mg PO QAM #90 tabs 02/02/23 05/01/23 Rx alprazolam 0.25 mg tablet 0.25 - 0.5 mg PO HS #90 tabs 02/21/23 05/01/23 Rx fluticasone 500 mcg-salmeterol 50 1 inh inhalation BID PRN cough, 03/06/23 05/01/23 Rx mcg/dose blistr powdr for wheeze #60 ea inhalation finasteride 5 mg tablet 5 mg PO QAM 05/01/23 05/01/23 History simvastatin 40 mg tablet 40 mg PO HS 05/01/23 05/01/23 History Patient History Medical History (Updated 05/02/23 @ 15:02 by Donell Dee MD) Asthma Atrial fibrillation intermittent - denies current issues; currently wearing an event monitor to see if "he still has it" will be removed week of 01/09/23-- follows w/ Dr Landaverde, last visit 12/2022 Barretts esophagus no current issue - had ablation of esophagus BPH (benign prostatic hyperplasia) CAD (coronary artery disease) s/p CABG x 3 (2012) Chronic back pain Conductive hearing loss Degenerative disc disease GERD (gastroesophageal reflux disease) History of gastric ulcer History of respiratory tract infection 03/2023 was treated w/ antibiotics and medrol dose pack, has mild lingering congestion and slight cough Hx of gout Hyperlipidemia well controlled Hypertension well controlled Insomnia Lumbar disc disorder with myelopathy Mitral regurgitation Osteoarthritis Sleep apnea NO LONGER USING DEVICE Spinal stenosis Thoracic ascending aortic aneurysm Mildly dilated ascending aorta (4.1cm) per 12/2020 echo, "stable" per cardiology Type 2 diabetes mellitus Borderline, diet controlled - changed diet and no problems Surgical History (Updated 05/02/23 @ 15:02 by Donell Dee MD) History of appendectomy History of cardiac cath 2013 ([facility]) > no stents History of carpal tunnel surgery of right wrist History of colonoscopy History of esophagogastroduodenoscopy (EGD) History of lumbar discectomy x2 L3-L4 History of prior ablation treatment Radiofrequency ablation of esophagus (done at [facility]) for precancerous Allen's Esophagus History of tonsillectomy History of total hip arthroplasty B/L left 05/17/2021: SAB at L3-L4, 1 attempt. No issues per anesthesia postop progress note. 06/03/2021 irrigation and debridement of left hip: LMA#5, atraumatic. No issues per anesthesia postop progress note. History of total replacement of left shoulder joint History of wisdom tooth extraction Nausea and vomiting after administration of anesthetic agent especially morphine S/P CABG (coronary artery bypass graft) Status post medial meniscus repair Left knee Status post right foot surgery Family History Father Family history of diabetes mellitus Myocardial infarction Stroke Brother Family history of esophageal cancer Stroke Son Coronary heart disease Other Diabetes Heart disease Hypertension No family history of adverse response to anesthesia Social History Smoking Status: Never smoker Cigarettes Per Day: QUIT 32 YRS AGO; Second Hand Exposure: No; Do You Dip or Chew Tobacco: No; Hx Alcohol Use: Yes Alcohol type: wine and hard liquor Hx Substance Use: No Preferred Language: Albanian Communication Ability: Effective Field Engineer Required: Yes Beliefs That Will Affect Care: None marital status: Current Living Situation: Spouse Feels Safe at Home: Yes Assistive Devices: Glasses Physical Exam Physical Exam: Gen.: No acute distress. Alert and oriented. HEENT: Anicteric sclera. Neck: Thick neck with probable mild JVD. No bruits. Normal carotid upstrokes bilaterally. Cardiac: No ventricular heave. Irregularly irregular. Normal S1-S2. No murmurs, rubs, or gallops. Pulmonary: Clear to auscultation bilaterally without wheezes, rales, or rhonchi. Abdomen: Soft, nontender, nondistended, with normoactive bowel sounds. No bruits noted. Extremities: 2+ radial pulses bilaterally. 2+ Brown pedis pulses bilaterally. Trace bilateral lower extremity edema. No cyanosis. Psychiatric: Affect appears appropriate. Results & Data Vital Signs (Past 12 Hours) Vital Signs Temp Pulse Pulse Resp BP BP Pulse Ox 05/02/23 07:44 95 H 05/02/23 07:18 36.6 C 92 H 18 145/115 H 92 05/02/23 04:17 36.5 C 90 18 148/85 H 91 05/01/23 23:00 104 H 05/02/23 00:04 36.5 C 105 H 18 130/73 90 05/01/23 21:19 O2 Del Method 05/02/23 07:44 05/02/23 07:18 Room Air 05/02/23 04:17 Room Air 05/01/23 23:00 05/02/23 00:04 Room Air 05/01/23 21:19 Room Air Intake & Output 04/30/23 05/01/23 05/02/23 05/03/23 06:59 06:59 06:59 06:59 Intake Total 1025 / 1025 550 / 550 Output Total 775 / 775 Balance 250 / 250 550 / 550 Weight 231 lb 7.766 oz 231 lb 7.766 oz Laboratory Results Laboratory Results - last 24 hr 05/01/23 05/01/23 05/02/23 17:04 20:27 00:01 WBC RBC Hgb Hct MCV MCH MCHC RDW Std Deviation RDW Coeff of Herberth Plt Count MPV Absolute Nucleated RBC Nucleated RBC % (auto) Sodium Potassium Chloride Carbon Dioxide Anion Gap BUN Creatinine Est Cr Clr Drug Dosing Est GFR ( Amer) Est GFR (Non-Af Amer) BUN/Creatinine Ratio Glucose POC Glucose 296 H 260 H 283 H Estimat Average Glucose Hemoglobin A1c Calcium Magnesium Iron TIBC Unsaturated IBC Transferrin % Sat Ferritin Vitamin B12 Folate Hepatitis C Ab (EIA) 05/02/23 05/02/23 05/02/23 04:04 06:55 06:55 WBC 12.04 H RBC 3.77 L Hgb 12.2 L Hct 36.6 L MCV 97.1 MCH 32.4 MCHC 33.3 RDW Std Deviation 51.4 H RDW Coeff of Herberth 14.5 Plt Count 347 MPV 10.3 Absolute Nucleated RBC 0.03 Nucleated RBC % (auto) 0.2 Sodium 134 L Potassium 3.9 Chloride 96 L Carbon Dioxide 30 Anion Gap 8 BUN 19 Creatinine 0.85 Est Cr Clr Drug Dosing 97.0 Est GFR ( Amer) 99.5 Est GFR (Non-Af Amer) 85.8 BUN/Creatinine Ratio 22.4 H Glucose 169 H POC Glucose 193 H Estimat Average Glucose Hemoglobin A1c Calcium 9.8 Magnesium 1.9 Iron 34 L TIBC 467 H Unsaturated IBC 433 H Transferrin % Sat 7 L Ferritin 44.3 Vitamin B12 Folate Hepatitis C Ab (EIA) 05/02/23 05/02/23 05/02/23 06:55 06:55 06:55 WBC RBC Hgb Hct MCV MCH MCHC RDW Std Deviation RDW Coeff of Herberth Plt Count MPV Absolute Nucleated RBC Nucleated RBC % (auto) Sodium Potassium Chloride Carbon Dioxide Anion Gap BUN Creatinine Est Cr Clr Drug Dosing Est GFR ( Amer) Est GFR (Non-Af Amer) BUN/Creatinine Ratio Glucose POC Glucose Estimat Average Glucose 194 Hemoglobin A1c 8.4 H Calcium Magnesium Iron TIBC Unsaturated IBC Transferrin % Sat Ferritin Vitamin B12 1226 H Folate > 22.30 Hepatitis C Ab (EIA) Pending 05/02/23 05/02/23 08:20 12:50 WBC RBC Hgb Hct MCV MCH MCHC RDW Std Deviation RDW Coeff of Herberth Plt Count MPV Absolute Nucleated RBC Nucleated RBC % (auto) Sodium Potassium Chloride Carbon Dioxide Anion Gap BUN Creatinine Est Cr Clr Drug Dosing Est GFR ( Amer) Est GFR (Non-Af Amer) BUN/Creatinine Ratio Glucose POC Glucose 181 H 193 H Estimat Average Glucose Hemoglobin A1c Calcium Magnesium Iron TIBC Unsaturated IBC Transferrin % Sat Ferritin Vitamin B12 Folate Hepatitis C Ab (EIA) Diagnostic Findings Labs reviewed and notable for elevated BNP, normal TSH, normal renal function, normal potassium. High-sensitivity troponin negative. Echo 05/01/2023: Mildly dilated LV. EF 25 to 30%. Severe hypokinesis to akinesis of the inferior wall. Otherwise global hypokinesis. Mild LVH. Septal motion consistent with bundle branch block. Mildly dilated RV with probably moderately reduced RV systolic function. Moderate biatrial dilation. Sclerotic aortic valve. Moderate to severe MR. Mild to moderate TR. RVSP 42. Compared to 01/24/2022 study, LV systolic function has declined an MR appears more significant. Chest x-ray 05/02/2023 personally reviewed: No infiltrate. No significant pleural effusion. Interval improvement of pulmonary edema per radiology. Chest x-ray 05/01/2023: Mild interstitial pulmonary edema per radiology. Possible mild right basilar opacity. Telemetry personally reviewed: Atrial fibrillation. Medications Administered Current Inpatient Medications Acetaminophen (Acetaminophen 325 Mg Tab) 650 mg PO Q4H PRN PRN Reason: Pain or Fever Stop: 05/31/23 13:13 Albuterol (Albut/Ipratrop 3mg/0.5mg Neb 3 Ml Vial) 3 ml NEB Q6R PRN; Protocol PRN Reason: Shortness Of Breath Or Wheezing Stop: 06/01/23 12:59 Allopurinol (Allopurinol 300 Mg Tab) 300 mg PO QAM [facility] Stop: 06/01/23 08:59 Last Admin: 05/02/23 08:10 Dose: 300 mg Alprazolam (Alprazolam 0.25 Mg Tablet) 0.25 mg PO HS [facility] Stop: 05/31/23 20:59 Last Admin: 05/01/23 21:09 Dose: 0.25 mg Apixaban (Apixaban 5 Mg Tablet) 5 mg PO BID [facility] Stop: 05/31/23 20:59 Last Admin: 05/02/23 08:09 Dose: 5 mg Aspirin (Aspirin 81 Mg Ectab) 81 mg PO QAM [facility] Stop: 06/01/23 08:59 Last Admin: 05/02/23 08:10 Dose: 81 mg Azithromycin (Azithromycin 250 Mg Tab) 500 mg PO QAM [facility] Stop: 05/04/23 08:59 Last Admin: 05/02/23 08:09 Dose: 500 mg Dextrose (Dextrose 50% 50 Ml Syringe) 25 - 50 ml IV UD PRN; Protocol PRN Reason: Hypoglycemia Protocol Stop: 05/31/23 13:13 Finasteride (Finasteride 5 Mg Tab) 5 mg PO QAM [facility] Stop: 06/01/23 08:59 Last Admin: 05/02/23 08:10 Dose: 5 mg Fish Oil ([place]-3 (Purified Fish Oil) 1 Gm Cap) 1 gm PO QAM [facility] Stop: 06/01/23 08:59 Last Admin: 05/02/23 08:10 Dose: 1 gm Fluticasone/Vilanterol (Fluticasone/Vilanterol 100/25mcg 14 Puffs/Inhaler) 1 puffs INH DAILY [facility] Stop: 06/02/23 08:59 Furosemide (Furosemide Inj 20 Mg/2 Ml Vial) 40 mg IV QAM [facility] Stop: 06/01/23 08:59 Last Admin: 05/02/23 08:10 Dose: 40 mg Glucagon (Glucagon For Inj 1 Mg Vial) 1 mg SQ UD PRN; Protocol PRN Reason: Hypoglycemia Protocol Stop: 05/31/23 13:13 Glucose (Glucose 10 Tab/Tube) 4 - 8 tab PO UD PRN; Protocol PRN Reason: Hypoglycemia Treatment Stop: 05/31/23 13:13 Glucose (Glucose 40% Gel 15 Gm Tube) 15 - 30 gm PO UD PRN; Protocol PRN Reason: Hypoglycemia Protocol Stop: 05/31/23 13:13 Guaifenesin (Guaifenesin 600 Mg Tabcr) 600 mg PO Q12 [facility] Stop: 05/31/23 20:59 Last Admin: 05/02/23 08:09 Dose: 600 mg Hydrochlorothiazide (Hydrochlorothiazide 25 Mg Tab) 25 mg PO QAM [facility] Stop: 06/01/23 08:59 Last Admin: 05/02/23 08:09 Dose: 25 mg Ceftriaxone Sodium 2,000 mg/ (Dextrose) 70 mls @ 100 mls/hr IV Q24H [facility]; Protocol Stop: 05/09/23 08:59 Last Infusion: 05/02/23 11:00 Dose: Infused Insulin Aspart (Insulin Aspart Per Unit Charge) 0 units SC [facility] Stop: 05/31/23 13:29 Last Admin: 05/02/23 13:10 Dose: 12 units Insulin Glargine (Lantus Per Unit Charge) 0 units SC [facility]; Protocol Stop: 05/02/23 21:01 Losartan Potassium (Losartan Potassium 50 Mg Tab) 100 mg PO QAM [facility] Stop: 06/01/23 08:59 Last Admin: 05/02/23 08:17 Dose: 100 mg Melatonin (Melatonin 3 Mg Tab) 9 mg PO HS PRN PRN Reason: Sleep Stop: 05/31/23 13:30 Last Admin: 05/01/23 21:08 Dose: 9 mg Metoprolol Succinate (Metoprolol Succ 50mg Ext Rel Tab) 50 mg PO QAM [facility] Stop: 06/01/23 08:59 Last Admin: 05/02/23 08:17 Dose: 50 mg Miscellaneous (Carbohydrates For Hypoglycemia ) 15 - 30 gm PO UD PRN PRN Reason: Hypoglycemia Protocol Stop: 05/31/23 13:13 Miscellaneous Information (Pharmacy Glycemic Mgmt Consult) 1 each N/A UD PRN; Protocol PRN Reason: Consult Stop: 05/31/23 13:13 Montelukast Sodium (Montelukast Sodium 10 Mg Tablet) 10 mg PO PM [facility] Stop: 05/31/23 20:59 Last Admin: 05/01/23 19:53 Dose: 10 mg Multivitamins (Multivitamin Tab) 1 tab PO QAM [facility] Stop: 06/01/23 08:59 Last Admin: 05/02/23 08:09 Dose: 1 tab Ondansetron HCl (Ondansetron Inj 2 Mg/Ml 2 Ml Vial) 4 mg IV Q6H PRN PRN Reason: Nausea Stop: 05/31/23 13:13 Pantoprazole Sodium (Pantoprazole 40 Mg Tab) 40 mg PO BID [facility] Stop: 05/31/23 20:59 Last Admin: 05/02/23 08:09 Dose: 40 mg Polyethylene Glycol (Polyethylene (Miralax) 17 Gm Pack) 17 gm PO DAILY PRN PRN Reason: Constipation Stop: 05/31/23 13:13 Prednisone (Prednisone 20 Mg Tab) 40 mg PO DAILY [facility] Stop: 06/02/23 08:59 Simvastatin (Simvastatin 40 Mg Tab) 40 mg PO HS [facility] Stop: 05/31/23 20:59 Last Admin: 05/01/23 19:53 Dose: 40 mg Zolpidem Tartrate (Zolpidem Tartrate 10 Mg Tab) 10 mg PO HS PRN PRN Reason: Sleep Stop: 05/31/23 13:13 Last Admin: 05/01/23 21:08 Dose: 10 mg PG Care Time/CCT Total # of Minutes Spent Total Time Spent with Patient: Total time spent is greater than 50% in coordination of care (as documented) at patient's floor/unit and/or counseling patient: Coding Level of Care Code 41012 INT INP/OBS CARE 3/75MIN Diagnoses Acute HFrEF (heart failure with reduced ejection fraction) I50.21 Cardiomyopathy I42.9 Coronary artery disease, occlusive I25.10 S/P CABG (coronary artery bypass graft) Z95.1 Atrial fibrillation I48.91 Hypercholesterolemia E78.00 Mitral regurgitation I34.0 Pulmonary hypertension I27.20 Thoracic ascending aortic aneurysm I71.2 Hypertension I10 Time Spent (min) 78
--- NOTE | 2023-05-02 09:06 | Pharmacy Report ---
Pharmacy Glycemic Short Note 2 - Date of Service May 02, 2023 - Glycemic Short BSG Results (Last 24 hours): 05/01/23 05/01/23 05/01/23 08:10 14:25 17:04 Glucose 230 H POC Glucose 284 H 296 H 05/01/23 05/02/23 05/02/23 20:27 00:01 04:04 Glucose POC Glucose 260 H 283 H 193 H 05/02/23 05/02/23 06:55 08:20 Glucose 169 H POC Glucose 181 H OUTPATIENT ANTIDIABETIC REGIMEN: * n/a HbA1c: 8.4% (05/02/23) ASSESSMENT: 05/02/23: * Patient hyperglycemic yesterday and updated A1c suggests progression of diabetes (will require treatment upon discharge) * Fasting BSG of 181 mg/dL this morning * Given persistent hyperglycemia yesterday will tighten Novolog parameters today * Continue Lantus 20 units SC daily with steroid w/ possible scaled basal dose this evening * Methylprednisolone changed to prednisone 40 mg PO daily starting tomorrow morning 05/01/23: * WH is a 72 year old male who presents to ED with persistent cough and shortness of breath * SpO2 86% on arrival, chest x-ray shows cardiomegaly, elevated BNP * Symptoms believed to be result of some combination of CHF, asthma exacerbation, and possible pneumonia * BSG on initial lab check of 230 mg/dL * Ordered methylprednisolone 40 mg IV daily * Patient on no antidiabetic medications at home, but A1c is elevated * Will give conservative initial basal dose with more aggressive Novolog parameters + overnight checks PLAN FOR INPATIENT GLYCEMIC CONTROL: * Basal insulin * Lantus 20 units SC daily with methylprednisolone * Lantus 0-20 units SC HS (see EHR for details) * Reassess tomorrow with change to prednisone * Bolus insulin * NovoLog per scale ACHS or Q6hrs while NPO * Goal Range: Low 110 mg/dL - High 140 mg/dL * Correction Factor: 15 mg/dL/unit * Nutritional / Prandial insulin per carb ratio of 1 unit per 5 grams CHO consumed
[2023-05-02] MEDS ORDERED: ALBUT/IPRATROP 3MG/0.5MG NEB 3 ML VIAL NEB PRN (10:35)
--- NOTE | 2023-05-02 11:35 | XRay Report ---
XR chest 2V PA/lateral CLINICAL HISTORY: shortness of breath COMPARISON STUDY: Chest radiograph May 01, 2023. FINDINGS: Left shoulder arthroplasty, median sternotomy wires and mediastinal surgical clips are note d. There is no pneumothorax or pleural effusion. Cardiomegaly is unchanged. Interstitial thickening h as improved. There are minimal bibasilar opacities. IMPRESSION: 1. Interval improvement in pulmonary edema. 2. Minimal bibasilar opacities. Atelectasis is favored although a mild infectious process could appea r similar. ACT 112: Negative or not required by law. Electronically signed by: Donny Marley M.D. 05/02/2023 11:33 AM
--- NOTE | 2023-05-02 12:27 | Heart Failure Consultation ---
Date of Consultation May 02, 2023 Assessment & Plan (1) Acute HFrEF (heart failure with reduced ejection fraction): (2) Cardiomyopathy: History of Present Illness Attending Physician: Renea Lazar, History of Present Illness Meet with patient in their hospital room. We discussed the nature of heart failure and the goals of the heart failure program. Patient is agreeable to ongoing participation and will be formally enrolled in the [facility] heart failure program. Patient advised to weigh themselves daily on their home scale. Notify the office if 2+ lb weight gain overnight or 5+ lb in 1 week. Low sodium diet recommended on discharge. Contact information provided. Patient will have scheduled outpatient follow up within 7 days of discharge. Please see full cardiology consult for additional recommendations and formal plan of care. Allergies Allergy/AdvReac Type Severity Reaction Status Date / Time MARCELLO Inhibitors AdvReac Mild Cough Verified 05/01/23 10:10 Home Medications Medication Instructions Recorded Confirmed Type azelastine 137 mcg (0.1 %) nasal 2 spray intranasal DAILY PRN Nasal 10/08/18 05/01/23 History spray aerosol Congestion melatonin 10 mg tablet 10 mg PO HS PRN Sleep 10/08/18 05/01/23 History multivitamin 1 tab PO QAM 10/08/18 05/01/23 History omega 5-hza-foj-fish oil 1,000 mg 1 cap PO QAM 10/08/18 05/01/23 History (120 mg-180 mg) capsule (Fish Oil) aspirin 81 mg tablet,delayed 81 mg PO QAM 02/28/22 05/01/23 History release (Adult Aspirin Regimen) diltiazem HCl 240 mg 240 mg PO QAM #90 caps 08/01/22 05/01/23 Rx capsule,extended release 24 hr apixaban 5 mg tablet 5 mg PO BID #180 tabs 09/02/22 05/01/23 Rx pantoprazole 40 mg tablet,delayed 40 mg PO BID #180 tabs 10/27/22 05/01/23 Rx release albuterol sulfate 90 mcg/actuation 2 puff inhalation QID PRN 11/17/22 05/01/23 Rx aerosol inhaler shortness of breath or wheezing #8.5 grams montelukast 10 mg tablet 10 mg PO PM #90 tabs 12/20/22 05/01/23 Rx losartan 100 1 tab PO QAM #90 tabs 01/03/23 05/01/23 Rx mg-hydrochlorothiazide 25 mg tablet amoxicillin 500 mg tablet 2,000 mg PO ONCE #4 tabs 01/04/23 05/01/23 Rx zolpidem 10 mg tablet 10 mg PO HS PRN Sleep #30 tabs 01/23/23 05/01/23 Rx allopurinol 300 mg tablet 300 mg PO QAM #90 tabs 02/02/23 05/01/23 Rx alprazolam 0.25 mg tablet 0.25 - 0.5 mg PO HS #90 tabs 02/21/23 05/01/23 Rx fluticasone 500 mcg-salmeterol 50 1 inh inhalation BID PRN cough, 03/06/23 Rx mcg/dose blistr powdr for wheeze #60 ea inhalation finasteride 5 mg tablet 5 mg PO QAM 05/01/23 05/01/23 History simvastatin 40 mg tablet 40 mg PO HS 05/01/23 05/01/23 History Patient History Medical History Asthma Atrial fibrillation intermittent - denies current issues; currently wearing an event monitor to see if "he still has it" will be removed week of 01/09/23-- follows w/ Dr Landaverde, last visit 12/2022 Barretts esophagus no current issue - had ablation of esophagus BPH (benign prostatic hyperplasia) CAD (coronary artery disease) s/p CABG x 3 (2012) Chronic back pain Conductive hearing loss Degenerative disc disease GERD (gastroesophageal reflux disease) History of gastric ulcer History of respiratory tract infection 03/2023 was treated w/ antibiotics and medrol dose pack, has mild lingering congestion and slight cough Hx of gout Hyperlipidemia well controlled Hypertension well controlled Insomnia Lumbar disc disorder with myelopathy Osteoarthritis Sleep apnea NO LONGER USING DEVICE Spinal stenosis Thoracic ascending aortic aneurysm Mildly dilated ascending aorta (4.1cm) per 12/2020 echo, "stable" per cardiology Type 2 diabetes mellitus Borderline, diet controlled - changed diet and no problems Surgical History History of appendectomy History of cardiac cath 2013 ([facility]) > no stents History of carpal tunnel surgery of right wrist History of colonoscopy History of esophagogastroduodenoscopy (EGD) History of lumbar discectomy x2 L3-L4 History of prior ablation treatment Radiofrequency ablation of esophagus (done at [facility]) for precancerous Allen's Esophagus History of tonsillectomy History of total hip arthroplasty B/L left 05/17/2021: SAB at L3-L4, 1 attempt. No issues per anesthesia postop progress note. 06/03/2021 irrigation and debridement of left hip: LMA#5, atraumatic. No issues per anesthesia postop progress note. History of total replacement of left shoulder joint History of wisdom tooth extraction Nausea and vomiting after administration of anesthetic agent especially morphine S/P CABG x 4 2013 ([facility]) Status post medial meniscus repair Left knee Status post right foot surgery Family History Father Family history of diabetes mellitus Myocardial infarction Stroke Brother Family history of esophageal cancer Stroke Son Coronary heart disease Other Diabetes Heart disease Hypertension No family history of adverse response to anesthesia Social History Smoking Status: Never smoker Cigarettes Per Day: QUIT 32 YRS AGO; Second Hand Exposure: No; Do You Dip or Chew Tobacco: No; Hx Alcohol Use: Yes Alcohol type: wine and hard liquor Hx Substance Use: No Preferred Language: [place] Communication Ability: Effective High Scaler Required: Yes Beliefs That Will Affect Care: None marital status: Current Living Situation: Spouse Other Information That Helps Us Care for You: No Feels Safe at Home: Yes Safety Concerns: Feels Safe At This Time Assistive Devices: Glasses Results & Data Vital Signs (Past 12 Hours) Vital Signs Temp Pulse Pulse Resp BP BP Pulse Ox 05/02/23 11:13 97.5 F L 84 17 136/80 95 05/02/23 08:00 05/02/23 07:44 95 H 05/02/23 07:18 97.9 F 92 H 18 145/115 H 92 05/02/23 04:17 97.7 F 90 18 148/85 H 91 O2 Del Method 05/02/23 11:13 Room Air 05/02/23 08:00 Room Air 05/02/23 07:44 05/02/23 07:18 Room Air 05/02/23 04:17 Room Air Coding Level of Care Code None Diagnoses Acute HFrEF (heart failure with reduced ejection fraction) I50.21 Cardiomyopathy I42.9
[2023-05-02] MEDS ORDERED: ALBUT/IPRATROP 3MG/0.5MG NEB 3 ML VIAL NEB SCH (13:00)
--- NOTE | 2023-05-02 17:44 | Discharge Summary ---
Discharge Summary Date of Service May 02, 2023 Notes For Next Care Provider Now on metoprolol and Entresto, diltiazem and losartan/HCTZ stopped Needs f/u Echo in 3 months F/u scheduled with CHF clinic F/u with Pulm for LAURENCE and asthma A1c 8.4%, recommended SGLT-2 given CHF/DM2 Admission HPI Per Admitting Provider 72yo male with PMHx significant for CAD (s/p CABG), Afib (on eliquis), LAURENCE (does not use device), HLD, DM II (diet controlled per patient), Lymphocytic colitis presented for shortness of breath and was found to be hypoxic to 86% on room air when he got here. Given Duoneb in ER and wheezing improved but still with rales, and provided lasix 20mg IV x 1 given not on anything outpatient. Seen in C9, at bedside. Seen by primary care in April for an asthma exacerbation and completed note with Augmentin and steroid dose pack. Recently traveled to [place], returning on Monday evening. Reports having had the cough starting prior to leaving. Tested himself for COVID x 2 and was n egative. Completed Zpak Reports having low grade fevers at home 99-100F. Sputum production reported, brown in color. Discussed admission for possible pneumonia/asthma exacerbation but appears with possible CHF. Reporting poor PO intake/fullness. Does have some issues with constipation at baseline but denies any blood. No reported LE edema/swelling with his travel. No history of DVT/PE. Has not missed any doses of his eliquis, but reports not having taken his medications yet this morning. Will order eliquis/aspirin/cardizem/losartan now. DId report feeling slightly better than when he came in since Duoneb/IV lasix. Dscreased wheezing but still present. Currently on 3L NC to maintain saturations. Only typically uses Advair for his asthma, does not wear CPAP with his history of LAURENCE, and not on any medications for his diabetes and reports diet controlled. On PPI BID for hx barretts. He was hoping to avoid admission but notes a busy week after tomorrow morning. He is hopeful for discharge tomorrow morning. Discussed will plan for discharge as soon as stable/safe. ER Course: Biofire negative CBC w/ WBC 10.78 w/ L shift. Na 131/Chl 93, BUN/Cr 17/0.88. Mag low at 1.4. BNP elevated 895. CXR w/ cardiomegaly with mild interstitial pulmonary edema, possible mild R basilar opacity. Procal pending Lasix 20mg IV x 1, Duoneb, IV magnesium 2gm ordered. Ceftriaxone IV ordered. Admission Exam Per Admitting Provider General: WD/WN male sitting up in bed, mild tachypnea moving around in bed but no acute distress, at bedside HEENT: head normocephalic, atraumatic, mmm, trachea midline Resp: diminished in the bases, rales to R base, upper anterior expiratory wheezing, mild tachypnea RR 22-24, on 3L NC CV: irregularly irregular, +systolic murmur, trace LE edema, calves nontender, pulses palpable GI: +BS, soft, slight distension, nontender : no lyons MSK/Neuro: no focal deficits/no slurred speech, follows commands Psych: AOx3, cooperative with exam Principal Dx & Hospital Course #1 = Principal Diagnosis (1) Acute respiratory failure with hypoxia: Present to the ER with progressive shortness of breath/cough/sputum production and low grade fevers at home with Hx asthma Multifactorial causes with likely asthma exacerbation, RLL PNA, pulmonary edema and HF exacerbation, see below CXR with RIGHT basilar opacity, mild interstitial pulmonary edema No evidence for DVT, no hypotension to suggest PE or pleuritic pain reported Biofire negative For PNA: continue Abx on discharge For possible asthma exacerbation: methylprednisolone transitioned to oral prednisone 40mg daily, for short course therapy, continue Mucinex, continue home inhalers with albuterol as needed For likely ischemic cardiomyopathy and HFrEF: Cardiology consulted for ongoing evaluation of cardiomyopathy, CHF clinic referral, medication changes as jah cribed below Weaned oxygen without issue and no longer dyspneic, desirous of discharge home (2) Acute HFrEF (heart failure with reduced ejection fraction): CXR on admission with evidence of mild pulmonary edema Echo 05/01/23 with mildly dilated LV with severely reduced EF 25-30%, severe hypokinesis to akinesis of the inferior wall, otherwise global hypokinesis Cardiology consult appreciated, possibly ischemic cardiomyopathy, will need cardiac catheterization in the near future which patient is amenable to Losartan HCTZ discontinued in favor of Entresto BID, follow up with CHF clinic and Dr. Eaton Diltiazem discontinued in favor of metoprolol succinate 50mg daily SGLT-2 not initiated at this time per patient preference, will follow up with Paola Downing in this regard (3) Pneumonia: Possible, Rocephin/azithro transitioned to Augmentin/azithro on discharge to complete 7 days of tx for PNA Lungs CTA on day of discharge, no complaints of SOB at rest or with activity today (4) Asthma exacerbation: Tx w/ nebulizers complete and transitioned to prn nebs this AM, oral prednisone daily for total of 5 days of steroids (5) Atrial fibrillation: Now permanent Remains on Eliquis, continue (6) S/P CABG (coronary artery bypass graft): Hx CAD with CABG 3 in May 2013 Trop not elevated/denied CP ECHO ordered to eval for worsening EF shows decline in LV function with EF 25- 30% since last study in 01/2022, noted progression of MR to mod-severe Cardiology follow up in near future for possible ischemic cardiomyopathy, CHF clinic consulted Continue beta ashley, Entresto, baby asa, statin (7) Type 2 diabetes mellitus: Patient reports diet controlled, however prior A1c 7.3 in August last year A1c 8.4%, patient defers starting medication on discharge today in favor of follow up discussion with Paola Downing Would benefit from SGLT-2 given concurrent DM2 and CHF Patient will purchase glucometer to check daily AM BSG (8) Obstructive sleep apnea: Reports does not use device at home Would benefit from such -- if not CPAP, then perhaps Inspire device Pulmonology office information provided to patient to schedule appt for LAURENCE and asthma (9) Allen's esophagus: Continue PPI BID (10) Hypercholesterolemia: Continue home meds (11) Thoracic ascending aortic aneurysm: Noted, followed by Dr Landaverde Plan Discharge to home today with oral abx and steroid for CAP, beta ashley and Entresto for CHF, with Cardiology, CHF clinic, and Pulmonology follow up Discharge Exam Constitutional WD/WN, vitals as above Respiratory normal respiratory effort, lungs clear to auscultation Cardiovascular HR irregularly irregular, no murmurs Gastrointestinal (Abdomen) normal bowel sounds, soft, nontender, no hepatosplenomegaly Skin no rashes, warm and dry Psychiatric A+Ox3, euthymic affect Updated Medication List Medication Instructions Recorded Confirmed Type azelastine 137 mcg (0.1 %) nasal 2 spray intranasal DAILY PRN Nasal 10/08/18 05/01/23 History spray aerosol Congestion melatonin 10 mg tablet 10 mg PO HS PRN Sleep 10/08/18 05/01/23 History multivitamin 1 tab PO QAM 10/08/18 05/01/23 History omega 4-vkf-yfc-fish oil 1,000 mg 1 cap PO QAM 10/08/18 05/01/23 History (120 mg-180 mg) capsule (Fish Oil) aspirin 81 mg tablet,delayed 81 mg PO QAM 02/28/22 05/01/23 History release (Adult Aspirin Regimen) apixaban 5 mg tablet 5 mg PO BID #180 tabs 09/02/22 05/01/23 Rx pantoprazole 40 mg tablet,delayed 40 mg PO BID #180 tabs 10/27/22 05/01/23 Rx release albuterol sulfate 90 mcg/actuation 2 puff inhalation QID PRN 11/17/22 05/01/23 Rx aerosol inhaler shortness of breath or wheezing #8.5 grams montelukast 10 mg tablet 10 mg PO PM #90 tabs 12/20/22 05/01/23 Rx zolpidem 10 mg tablet 10 mg PO HS PRN Sleep #30 tabs 01/23/23 05/01/23 Rx allopurinol 300 mg tablet 300 mg PO QAM #90 tabs 02/02/23 05/01/23 Rx alprazolam 0.25 mg tablet 0.25 - 0.5 mg PO HS #90 tabs 02/21/23 05/01/23 Rx fluticasone 500 mcg-salmeterol 50 1 inh inhalation BID PRN cough, 03/06/23 05/01/23 Rx mcg/dose blistr powdr for wheeze #60 ea inhalation finasteride 5 mg tablet 5 mg PO QAM 05/01/23 05/01/23 History simvastatin 40 mg tablet 40 mg PO HS 05/01/23 05/01/23 History amoxicillin 875 mg-potassium 1 tab PO BID 6 days #12 tabs 05/02/23 Rx clavulanate 125 mg tablet azithromycin 250 mg tablet 500 mg PO QAM 4 days #8 tabs 05/02/23 Rx metoprolol succinate 50 mg 50 mg PO QAM 30 days #30 tabs 05/02/23 Rx tablet,extended release 24 hr prednisone 20 mg tablet 40 mg PO DAILY 3 days #6 tabs 05/02/23 Rx sacubitril 49 mg-valsartan 51 mg 1 tab PO BID 30 days #60 tabs 05/02/23 Rx tablet (Entresto) Hospital Stay Data Consultations 05/01/23 11:28 ED Decision to Admit Stat 05/01/23 18:48 Consult Cardiology Routine 05/01/23 19:02 [facility] Referral Routine Pending Results Patient Have Any Pending Studies at Discharge: No Discharge Instructions Given to Patient (Per Discharging Provider) Pneumonia: You were noted to have evidence of a possible pneumonia on your XRay. You were started on IV antibiotics, which were transitioned to oral antibiotics. You should take the azithromycin and Augmentin as prescribed, please see your medication list below. Please complete the antibiotics even if you begin to feel great, to kill all of the residual bacteria. Asthma exacerbation: You had some reactivity of your airways due to the pneumonia. You were started on small dose steroids, to continue for three more days starting tomorrow. We call this a steroid burst. Heart failure, cardiomyopathy: For this, Cardiology saw you and recommended several medication changes. 1)First, your diltiazem was stopped, and instead a medication called metoprolol was started. This helps the heart pump more effectively when the heart function is reduced. It also helps keep your heart rate under control from AFib. 2) Second, your blood pressure pill losartan/HCTZ was stopped. In its place is a pill that is specifically for blood pressure management in heart failure patients, called Entresto. this is a twice daily pill that was sent to your pharmacy. Diabetes: Your A1c was 8.4% today. When trying to decrease risk of heart attack or stroke, our risk factors are high cholesterol, high blood pressure, high sugars, and smoking. It is important to know that A1c levels higher than 7% clog arteries. In order to get that A1c down and stop clogging arteries as quickly and effectively as possible, we recommend that you talk to your family doctor and Paola Downing about medications that are good for helping both diabetes and heart failure. These would be more effective at decreasing your sugar and protecting your heart than dietary changes alone, though this is an important part of diabetes and heart health as well. You and your body have been through a lot in the last 24 hours, and this hospitalization was your body telling you to take it easy over the coming few days. Please schedule / keep appointment follow ups with Dr. Landaverde and Paola Downing to discuss your heart and future heart catheterization. I have also attached the information for the Pulmonology group, to schedule an appointment with them for your asthma. If you have any return or worsening of your symptoms, such as chest pain or pressure, trouble breathing, worsening fevers, or other symptoms that are concerning to you, please call your doctors and seek urgent medical attention. Total Time Total Time Spent Total Time Spent (In Minutes): 45 min Coding Level of Care Code 65234 INP/OBS DISCH >30 MIN Diagnoses Acute respiratory failure with hypoxia J96.01 Acute HFrEF (heart failure with reduced ejection fraction) I50.21 Pneumonia J18.9 Asthma exacerbation J45.901 Atrial fibrillation I48.91 S/P CABG (coronary artery bypass graft) Z95.1 Type 2 diabetes mellitus E11.9 Obstructive sleep apnea G47.33 Allen's esophagus K22.70 Hypercholesterolemia E78.00 Thoracic ascending aortic aneurysm I71.2
[2023-05-03] MEDS ORDERED: FLUTICASONE/VILANTEROL 100/25MCG 14 PUFFS/INHALER INH SCH (09:00)
[2023-05-03] MEDS ORDERED: predniSONE 20 MG TAB PO SCH (09:00)
[2023-05-03] MEDS ORDERED: VALSARTAN/SACUBITRIL 51/49 MG TAB PO SCH (09:00)
== END 2023-05-02 16:52 | disposition home or self-care (01) | DRG 291 ==
LOC: ED 07:52 → SUATTDRO 10:33 → EDINP 10:33 → 2W 11:25
DX: I50.21 Acute systolic (congestive) heart failure; I48.21 Permanent atrial fibrillation; I25.10 Atherosclerotic heart disease of native coronary artery without angina pectoris; K22.70 Barrett's esophagus without dysplasia; I71.21 Aneurysm of the ascending aorta, without rupture; E11.9 Type 2 diabetes mellitus without complications; I42.9 Cardiomyopathy, unspecified; E78.00 Pure hypercholesterolemia, unspecified; J96.01 Acute respiratory failure with hypoxia; J45.901 Unspecified asthma with (acute) exacerbation; Z95.1 Presence of aortocoronary bypass graft; Z79.899 Other long term (current) drug therapy; I11.0 Hypertensive heart disease with heart failure; Z79.01 Long term (current) use of anticoagulants; I34.0 Nonrheumatic mitral (valve) insufficiency; Z79.82 Long term (current) use of aspirin; Z82.49 Family history of ischemic heart disease and other diseases of the circulatory system; I27.20 Pulmonary hypertension, unspecified; J18.9 Pneumonia, unspecified organism; G47.33 Obstructive sleep apnea (adult) (pediatric); Z87.891 Personal history of nicotine dependence; Z88.8 Allergy status to other drugs, medicaments and biological substances